=== PATIENT | female | born 1945 | race Caucasian/White ===

== ENCOUNTER → 2018-12-06 09:51 | Outpatient (CLI) | payer OTHER, SELFPAY ==
--- NOTE | 2018-12-06 | DI.MG.S_ITS ---
BILATERAL DIGITAL SCREENING MAMMOGRAM 3D/2D WITH CAD WITH AUGMENTATION: 12/06/2018 CLINICAL: Routine screening. Comparison is made to exams dated: 11/13/2015 mammogram - [facility], 11/13/2013 mammogram, and 11/13/2011 mammogram - [facility]. The tissue of both breasts is heterogeneously dense. This may lower the sensitivity of mammography. Current study was also evaluated with a Computer Aided Detection (CAD) system. Bilateral breast implants are stable. No significant masses, calcifications, or other findings are seen in either breast. There has been no significant interval change. IMPRESSION: NEGATIVE There is no mammographic evidence of malignancy. A 1 year screening mammogram is recommended. This exam was interpreted at Station ID: [id number]. NOTE: For mammograms, a report in lay terms will be sent to the patient. Approximately 15% of breast malignancies will not be visualized mammographically. In the management of a palpable breast mass, a negative mammogram must not discourage biopsy of a clinically suspicious lesion. Electronically Signed By: Ryan quiroz/bita:12/06/2018 17:02:59 letter sent: Normal Exam ACR BI-RADS Category 1: Negative [id number]
== END ==
PROVIDERS: PCP Family Medicine; Visit Provider Family Medicine
DX: Z12.31 Encounter for screening mammogram for malignant neoplasm of breast (principal)
CPT/HCPCS: 77063; 77067

== ENCOUNTER → 2019-03-03 10:14 | Outpatient (CLI) | payer OTHER, SELFPAY | PROVIDERS: PCP Family Medicine; Visit Provider Family Medicine | DX: M85.852 Other specified disorders of bone density and structure, left thigh (principal); Z78.0 Asymptomatic menopausal state; Z82.62 Family history of osteoporosis; E07.9 Disorder of thyroid, unspecified | CPT/HCPCS: 77080 ==

== ENCOUNTER → 2019-12-13 14:06 | Outpatient (CLI) | payer OTHER, SELFPAY ==
--- NOTE | 2019-12-13 14:10 | DI.RAD.S_ITS ---
PROCEDURE: XR CHEST 2V INDICATIONS: intermittent hemoptysis, none right now TECHNIQUE: 2 views of the chest were acquired. COMPARISON: None. FINDINGS: Surgical changes and devices: Bilateral breast prostheses Lungs and pleura: Lungs are clear. No pleural effusions or pneumothorax. Mediastinum: Mediastinal contours are normal. Heart size is normal. Bones and chest wall: No suspicious bony abnormalities. Soft tissues appear unremarkable. IMPRESSION: No acute disease Dictated by: Chaitanya Aviles M.D. on 12/13/2019 at 16:27 Approved by: Chaitanya Aviles M.D. on 12/13/2019 at 16:28
== END ==
PROVIDERS: PCP Nurse Practitioner Family; Referring Provider Nurse Practitioner Family; Visit Provider Nurse Practitioner Family
DX: R04.2 Hemoptysis (principal)
CPT/HCPCS: 71046

== ENCOUNTER → 2019-12-14 09:08 | Outpatient (CLI) | payer OTHER, SELFPAY ==
[2019-12-14 09:53] LABS: Appearance Urine UA CLEAR; Bilirubin Urine UA NEGATIVE (NEGATIVE); Color Urine UA YELLOW; Glucose Urine UA NEGATIVE (Negative); Ketones Urine UA NEGATIVE (NEGATIVE); Leukocyte Esterase Urine UA NEGATIVE (NEGATIVE); Nitrite Urine UA NEGATIVE (Negative); Occult Blood Urine UA TRACE-INTACT (Negative); Protein Urine UA NEGATIVE (Negative); Specific Gravity Urine UA 1.015 (1.000-1.035); Urobilinogen Urine UA 0.2 E.U./dL (0.2)
[2019-12-14 10:06] LABS: Bacteria Urine Occasional (0-1); Culture Indicated Urine Cult Not Indicated; RBC Urine 0-1/HPF (0-5/HPF); WBC Urine 0-1/HPF (0-5/HPF); pH Urine UA 6.5 (4.5-8.0)
[2019-12-14 10:09] LABS: Add Manual Diff / Slide Review NO; Basophils Absolute Auto 0 /uL (0-100); Basophils Percent Auto 0.5 % (0-2); Eosinophils Absolute Auto 100 /uL (0-450); Eosinophils Percent Auto 2.9 % (2-4); Hematocrit 36.1 % (36-46); Hemoglobin 12.2 g/dL (12.0-16.0); Lymphocytes Absolute Auto 900 /uL (1100-4500); Lymphocytes Percent Auto 18.7 % (25-40); Mean Corpuscular HGB Conc 33.8 % (30-36); Mean Corpuscular Volume 91.6 fL (80-100); Monocytes Absolute Auto 500 /uL (0-900); Monocytes Percent Auto 10.1 % (3-14); Neutrophils Absolute Auto 3400 /uL (1500-7000); Neutrophils Percent Auto 67.8 % (50-75); Platelet Count 224 X10^3/uL (150-400); Red Blood Cell Count 3.94 X10^6/uL (4.0-5.2); Red Cell Distribution Width 13.2 % (11.6-14.8)
[2019-12-14 10:17] LABS: Prothrombin Time 11.2 SECONDS (10.1-12.7)
[2019-12-14 10:20] LABS: PTT Partial Thromboplastin Tim 32 SECONDS (26.4-36.2)
[2019-12-14 10:35] LABS: Alanine Aminotransferase 22 IU/L (<35); Albumin 4.5 g/dL (3.5-5.0); Albumin Globulin Ratio 1.5 (1.0-2.8); Alkaline Phosphatase 53 U/L (38-126); Aspartate Aminotransferase 31 IU/L (14-36); BUN Creatinine Ratio 23.7 (6-22); Bilirubin Total 0.5 mg/dL (0.2-1.3); Blood Urea Nitrogen 18 mg/dL (7-17); Calcium 9.7 mg/dL (8.4-10.2); Carbon Dioxide 31 mmol/L (22-32); Chloride 97 mmol/L (98-107); Cholesterol 151 mg/dL (140-199); Estimated Glomerular Filt Rate > 60.0 mL/min (>60); Globulin 3.1 g/dL (1.7-4.1); Glucose 121 mg/dL (80-110); HDL Cholesterol 65 mg/dL (40-60); HEMOLYSIS < 15 (0-50); LDL Cholesterol Calculated 76 mg/dL (<100); Potassium 4.5 mmol/L (3.4-5.1); Sodium 134 mmol/L (137-145); Total Protein 7.6 g/dL (6.3-8.2); Triglycerides 50 mg/dL (35-150)
[2019-12-14 10:51] LABS: Creatinine Urine Random 81.2 mg/dL
[2019-12-14 10:56] LABS: Microalbumi Creatinin Ratio Ur 8.6 ug/mg CR (<30); Microalbumin Urine Random 0.7 mg/dL (0-1.6)
[2019-12-14 11:05] LABS: Thyroid Stimulating Hormone 3.29 uIU/mL (0.47-4.68)
[2019-12-16 13:30] LABS: QuantiFERON Mitogen Value 8.41 IU/mL (.); QuantiFERON Nil Value 0.19 IU/mL (.); QuantiFERON TB Gold Plus Negative (Negative); QuantiFERON TB1 Ag Value 0.18 IU/mL (.); QuantiFERON TB2 Ag Value 0.14 IU/mL (.)
== END ==
PROVIDERS: PCP Nurse Practitioner Family; Referring Provider Nurse Practitioner Family; Visit Provider Nurse Practitioner Family
DX: Z13.6 Encounter for screening for cardiovascular disorders (principal); R04.2 Hemoptysis; I10 Essential (primary) hypertension
CPT/HCPCS: 36415; 80053; 80061; 81001; 82043; 82570; 84443; 85025; 85610; 85730; 86480

== ENCOUNTER → 2020-03-01 13:37 | Outpatient (CLI) | payer OTHER, SELFPAY ==
--- NOTE | 2020-03-01 | DI.MG.S_ITS ---
BILATERAL DIGITAL SCREENING MAMMOGRAM 3D/2D WITH CAD WITH AUGMENTATION: 03/01/2020 CLINICAL: Routine screening. Comparison is made to exam dated: 12/06/2018 [facility]. The tissue of both breasts is heterogeneously dense. This may lower the sensitivity of mammography. Current study was also evaluated with a Computer Aided Detection (CAD) system. Bilateral prepectoral silicone implants are stable and have irregular rehman. There is a possible oval equal density asymmetry in the right breast middle depth inferior region seen on the mediolateral oblique view only. No other significant masses, calcifications, or other findings are seen in either breast. IMPRESSION: INCOMPLETE: NEEDS ADDITIONAL IMAGING EVALUATION The possible asymmetry in the right breast is indeterminate. Additional views with possible ultrasound are recommended. This exam was interpreted at Station ID: [id number]. NOTE: For mammograms, a report in lay terms will be sent to the patient. Approximately 15% of breast malignancies will not be visualized mammographically. In the management of a palpable breast mass, a negative mammogram must not discourage biopsy of a clinically suspicious lesion. Electronically Signed By: Kaiser Masterson M.D. [facility]/:03/01/2020 14:33:57 letter sent: Additional Imaging Needed ACR BI-RADS Category 0: Incomplete 3340F
== END ==
PROVIDERS: PCP Nurse Practitioner Family; Referring Provider Nurse Practitioner Family; Visit Provider Nurse Practitioner Family
DX: Z12.31 Encounter for screening mammogram for malignant neoplasm of breast (principal)
CPT/HCPCS: 77063; 77067

== ENCOUNTER → 2020-03-25 13:06 | Outpatient (CLI) | payer OTHER, SELFPAY ==
--- NOTE | 2020-03-25 | DI.MG.S_ITS ---
UNILATERAL RIGHT DIGITAL DIAGNOSTIC MAMMOGRAM 3D/2D WITH ADDITIONAL VIEWS: 03/25/2020 CLINICAL: Additional evaluation requested from prior study. Comparison is made to exams dated: 03/01/2020 mammogram, 12/06/2018 mammogram - [facility], and 11/13/2015 mammogram - [facility]. The tissue of right breast is heterogeneously dense. This may lower the sensitivity of mammography. Right prepectoral silicone implant is stable and has an irregular wall. There is an oval equal density asymmetry in the right breast middle depth inferior region seen on the mediolateral oblique view and lateral medial views just anterior to the implant. No other significant masses or calcifications are seen in the breast. IMPRESSION: INCOMPLETE: NEEDS ADDITIONAL IMAGING EVALUATION Asymmetry in the right breast is indeterminate. A targeted ultrasound is recommended and will immediately follow. This exam was interpreted at Station ID: [id number]. NOTE: For mammograms, a report in lay terms will be sent to the patient. Approximately 15% of breast malignancies will not be visualized mammographically. In the management of a palpable breast mass, a negative mammogram must not discourage biopsy of a clinically suspicious lesion. Electronically Signed By: Kaiser Mastesron M.D. slc/:03/25/2020 14:05:45 ACR BI-RADS Category 0: Incomplete 3340F
--- NOTE | 2020-03-25 13:08 | DI.US.S_ITS ---
LIMITED ULTRASOUND OF RIGHT BREAST: 03/25/2020 CLINICAL: Abn Mammo 600 Rt Breast. Comparison is made to exams dated: 03/25/2020 mammogram, 03/01/2020 mammogram, 12/06/2018 mammogram - [facility], and 11/13/2015 mammogram - [facility]. Color flow and real-time ultrasound of the right breast 5-7 o'clock region were performed. Felder scale images of the real-time examination were reviewed. There is a 1.6 cm x 1 cm x 0.3 cm oval cyst in the right breast at 6 o'clock middle depth 3 cm from the nipple. This oval cyst is hypoechoic with a well-defined boundary and internal echoes. This correlates with mammography findings. Color flow imaging demonstrates that there is no vascularity present. IMPRESSION: PROBABLY BENIGN The 1.6 cm oval cyst in the right breast is consistent with a complicated cyst and is probably benign. A follow-up mammogram and an ultrasound in 6 months is recommended to demonstrate stability. Exam findings conveyed to the patient by the Mixer Operator. This exam was interpreted at Station ID: [id number]. Electronically Signed By: Kaiser Masterson M.D. slc/:03/25/2020 14:20:17 letter sent: Followup Recommended Ultrasound BI-RADS: 3 Probably benign
== END ==
PROVIDERS: PCP Nurse Practitioner Family; Referring Provider Nurse Practitioner Family; Visit Provider Nurse Practitioner Family
DX: R92.8 Other abnormal and inconclusive findings on diagnostic imaging of breast (principal); N60.01 Solitary cyst of right breast; Z98.82 Breast implant status
CPT/HCPCS: 76642; 77065; G0279

== ENCOUNTER → 2020-04-20 13:01 | Outpatient (CLI) | payer OTHER, SELFPAY ==
--- NOTE | 2020-04-20 13:03 | DI.RAD.S_ITS ---
PROCEDURE: XR ANKLE RT MIN 3V INDICATIONS: medial right ankle pain TECHNIQUE: 3 views of the ankle were acquired. COMPARISON: None. FINDINGS: Bones: No fractures or dislocations. Ankle mortise is normally aligned. No suspicious bony lesions. The talar dome demonstrates no dulce maria abnormality. Age-appropriate bony degenerative changes are seen. Soft tissues: No tibiotalar joint effusion. Achilles tendon appears normal. IMPRESSION: No acute plain film abnormality is seen to explain the patient's presenting history. If it would be helpful for clinical management decision making, please consider a dedicated ankle MRI for further evaluation echo contraindication Dictated by: Samson Mcgee M.D. on 04/20/2020 at 12:30 Approved by: Samosn Mcgee M.D. on 04/20/2020 at 12:31
== END ==
PROVIDERS: PCP Nurse Practitioner Family; Referring Provider Physician Assistant; Visit Provider Physician Assistant
DX: M25.571 Pain in right ankle and joints of right foot (principal)
CPT/HCPCS: 73610

== ENCOUNTER → 2020-08-19 11:13 | Outpatient (CLI) | payer OTHER, SELFPAY | PROVIDERS: PCP Nurse Practitioner Family; Referring Provider Nurse Practitioner Family; Visit Provider Nurse Practitioner Family | DX: E03.9 Hypothyroidism, unspecified (principal) | CPT/HCPCS: 36415; 84443 ==

== ENCOUNTER → 2020-09-07 15:05 | Outpatient (CLI) | payer OTHER, SELFPAY ==
[2020-09-07 16:29] LABS: COVID19 -Nasal RAPID Negative (Negative)
== END ==
PROVIDERS: PCP Nurse Practitioner Family; Visit Provider Physician Assistant
DX: Z11.59 Encounter for screening for other viral diseases (principal)
CPT/HCPCS: 87635

== ENCOUNTER → 2020-09-18 14:08 | Outpatient (CLI) | payer OTHER, SELFPAY ==
--- NOTE | 2020-09-18 | DI.US.S_ITS ---
LIMITED ULTRASOUND OF RIGHT BREAST AND AXILLA: 09/18/2020 CLINICAL: Patient returns for a 6 month follow up of the right breast. Comparison is made to exams dated: 09/18/2020 mammogram, 03/25/2020 ultrasound, 03/25/2020 mammogram, and 03/01/2020 mammogram - [facility]. Color flow and real-time ultrasound of the right breast 6 o'clock, and axilla regions were performed on the areas of interest. There is a stable benign 1.5 cm x 0.4 cm x 0.8 cm oval cyst in the right breast at 6 o'clock middle depth. This oval cyst is anechoic with a well-defined boundary and posterior acoustic enhancement. This correlates with mammography findings. Color flow imaging demonstrates that there is no vascularity present. IMPRESSION: BENIGN There is no sonographic evidence of malignancy. The stable 1.5 cm x 0.4 cm x 0.8 cm oval cyst in the right breast is consistent with a simple cyst and is benign. A 1 year screening mammogram is recommended. Future imaging is recommended as follows: 09/24/2020 right mammogram and an ultrasound. This exam was interpreted at Station ID: [id number]. Electronically Signed By: Juan Luis brody/bita:09/18/2020 16:25:09 letter sent: Normal Exam Ultrasound BI-RADS: 2 Benign
--- NOTE | 2020-09-18 | DI.MG.S_ITS ---
UNILATERAL RIGHT DIGITAL DIAGNOSTIC MAMMOGRAM 3D/2D SHORT-TERM FOLLOW-UP WITH AUGMENTATION: 09/18/2020 CLINICAL: Patient returns for a 6 month follow up of the right breast. Comparison is made to exams dated: 03/25/2020 mammogram, 03/01/2020 mammogram, and 12/06/2018 mammogram - [facility]. The tissue of right breast is heterogeneously dense. This may lower the sensitivity of mammography. There is an oval equal density asymmetry with an obscured and circumscribed margin in the right breast middle depth inferior region seen on the mediolateral oblique view only. This is not significantly changed. No other significant masses or calcifications are seen in the breast. IMPRESSION: INCOMPLETE: NEEDS ADDITIONAL IMAGING EVALUATION The oval equal density asymmetry in the right breast is indeterminate. An ultrasound is recommended. Future imaging is recommended as follows: 09/24/2020 right mammogram and an ultrasound. This exam was interpreted at Station ID: [id number]. NOTE: For mammograms, a report in lay terms will be sent to the patient. Approximately 15% of breast malignancies will not be visualized mammographically. In the management of a palpable breast mass, a negative mammogram must not discourage biopsy of a clinically suspicious lesion. Electronically Signed By: Juan Luis brody/bita:09/18/2020 14:47:13 ACR BI-RADS Category 0: Incomplete 3340F
== END ==
PROVIDERS: PCP Nurse Practitioner Family; Referring Provider Nurse Practitioner Family; Visit Provider Nurse Practitioner Family
DX: R92.8 Other abnormal and inconclusive findings on diagnostic imaging of breast (principal); N60.01 Solitary cyst of right breast
CPT/HCPCS: 76642; 77065; G0279

== ENCOUNTER → 2020-12-03 16:49 | Outpatient (CLI) | payer OTHER, SELFPAY ==
[2020-12-03 17:50] LABS: Bacteria Urine None Seen; RBC Urine None Seen (0-5/HPF); WBC Urine None Seen (0-5/HPF)
[2020-12-03 18:10] LABS: Appearance Urine UA CLEAR; Bilirubin Urine UA NEGATIVE (NEGATIVE); Color Urine UA YELLOW; Glucose Urine UA NEGATIVE (Negative); Ketones Urine UA NEGATIVE (NEGATIVE); Leukocyte Esterase Urine UA NEGATIVE (NEGATIVE); Nitrite Urine UA NEGATIVE (Negative); Occult Blood Urine UA TRACE-INTACT (Negative); Protein Urine UA NEGATIVE (Negative); Urobilinogen Urine UA 0.2 E.U./dL (0.2); pH Urine UA 6.5 (4.5-8.0)
[2020-12-03 18:17] LABS: Culture Indicated Urine Cult Not Indicated; Urine Comments Microscopic Normal
[2020-12-03 18:39] LABS: Hematocrit 36.9 % (36-46); Hemoglobin 12.3 g/dL (12.0-16.0); Mean Corpuscular HGB Conc 33.4 % (30-36); Mean Corpuscular Hemoglobin 30.2 PG (26-34); Mean Corpuscular Volume 90.2 fL (80-100); Platelet Count 226 X10^3/uL (150-400); Red Blood Cell Count 4.09 X10^6/uL (4.0-5.2); Red Cell Distribution Width 13.3 % (11.6-14.8); White Blood Cell Count 5.3 X10^3/uL (4.5-11.0)
[2020-12-03 19:03] LABS: Alanine Aminotransferase 27 IU/L (<35); Albumin 4.8 g/dL (3.5-5.0); Albumin Globulin Ratio 1.6 (1.0-2.8); Alkaline Phosphatase 56 U/L (38-126); Aspartate Aminotransferase 35 IU/L (14-36); BUN Creatinine Ratio 27.8 (6-22); Bilirubin Total 0.2 mg/dL (0.2-1.3); Blood Urea Nitrogen 20 mg/dL (7-17); Calcium 9.7 mg/dL (8.4-10.2); Carbon Dioxide 31 mmol/L (22-32); Chloride 98 mmol/L (98-107); Estimated Glomerular Filt Rate > 60.0 mL/min (>60); Glucose 99 mg/dL (80-110); HEMOLYSIS < 15 (0-50); Potassium 4.3 mmol/L (3.4-5.1); Sodium 134 mmol/L (137-145); Total Protein 7.8 g/dL (6.3-8.2)
[2020-12-03 19:17] LABS: Free T4, Direct Thyroxine 1.48 ng/dL (0.78-2.19)
[2020-12-03 19:31] LABS: Thyroid Stimulating Hormone 0.769 uIU/mL (0.47-4.68)
== END ==
PROVIDERS: PCP Nurse Practitioner Family; Referring Provider Nurse Practitioner Family; Visit Provider Nurse Practitioner Family
DX: Z00.00 Encounter for general adult medical examination without abnormal findings (principal); E03.9 Hypothyroidism, unspecified; I10 Essential (primary) hypertension; R31.29 Other microscopic hematuria
CPT/HCPCS: 36415; 80053; 81001; 84439; 84443; 85027

== ENCOUNTER → 2020-12-06 10:14 | Outpatient (CLI) | payer OTHER, SELFPAY ==
[2020-12-06 11:23] LABS: Appearance Urine UA CLEAR; Bilirubin Urine UA NEGATIVE (NEGATIVE); Color Urine UA YELLOW; Glucose Urine UA NEGATIVE (Negative); Ketones Urine UA NEGATIVE (NEGATIVE); Leukocyte Esterase Urine UA NEGATIVE (NEGATIVE); Nitrite Urine UA NEGATIVE (Negative); Occult Blood Urine UA TRACE-LYSED (Negative); Protein Urine UA NEGATIVE (Negative); Specific Gravity Urine UA 1.015 (1.000-1.035); Urobilinogen Urine UA 0.2 E.U./dL (0.2)
[2020-12-06 12:01] LABS: Bacteria Urine Few (2-10); Culture Indicated Urine Cult Not Indicated; RBC Urine 0-1/HPF (0-5/HPF); Squamous Epithelial Cell Urine 0-1 /HPF (0-5/HPF); WBC Urine 0-1/HPF (0-5/HPF)
== END ==
PROVIDERS: PCP Nurse Practitioner Family; Referring Provider Nurse Practitioner Family; Visit Provider Nurse Practitioner Family
DX: R31.29 Other microscopic hematuria (principal)
CPT/HCPCS: 81001

== ENCOUNTER → 2020-12-10 11:01 | Outpatient (CLI) | payer OTHER, SELFPAY ==
--- NOTE | 2020-12-10 11:03 | DI.US.S_ITS ---
PROCEDURE: US THYROID INDICATIONS: THROAT DISCOMFORT TECHNIQUE: Real-time scanning was performed of the thyroid gland, with image documentation. COMPARISON: None. FINDINGS: Right: Thyroid lobe measures 3.9 x 1.0 x 0.7 cm, and is homogeneous in echotexture. Left: Thyroid lobe measures 3.2 x 0.8 x 0.6 cm, and is homogenous in echotexture. Isthmus: 2.4 mm thick. Nodule number: 1 Location: Left inferior Size: 6 mm Composition: Solid Echogenicity: Isoechoic Shape: wider than tall. Margins: Smooth Echogenic foci: None Total points: 3 ACR TI-RADS category: Mildly suspicious IMPRESSION: Mildly suspicious sub cm left thyroid nodule. Given the small size, no follow-up is warranted. ACR TI-RADS definitions and recommendations: TI-RADS 1 (benign): 0 points. FNA not needed. TI-RADS 2 (not suspicious): 2 points. FNA not needed. TI-RADS 3 (mildly suspicious): 3 points. * FNA if 2.5 cm or larger, follow up if 1.5 cm or larger (at 1, 3, and 5 years). TI-RADS 4 (moderately suspicious): 4-6 points. * FNA if 1.5 cm or larger, follow up if 1 cm or larger (at 1, 2, 3, and 5 years). TI-RADS 5 (highly suspicious): 7 points or more. * FNA if 1 cm or larger, follow up if 0.5 cm or larger (every year for 5 years). Dictated by: Paul Rosado [facility] Interpreted: Gabby Skinner MD on 12/10/2020 at 12:54 Approved by: Gabby Skinner M.D. on 12/10/2020 at 17:01
== END ==
PROVIDERS: PCP Nurse Practitioner Family; Referring Provider Nurse Practitioner Family; Visit Provider Nurse Practitioner Family
DX: R07.0 Pain in throat (principal); E04.1 Nontoxic single thyroid nodule
CPT/HCPCS: 76536

== ENCOUNTER → 2021-04-23 16:30 | Outpatient (CLI) | payer OTHER, SELFPAY ==
[2021-04-23 16:44] LABS: Bacteria Urine None Seen
[2021-04-23 18:33] LABS: Culture Indicated Urine Cult Not Indicated; RBC Urine 5-10/HPF (0-5/HPF); WBC Urine 0-1/HPF (0-5/HPF)
== END ==
PROVIDERS: PCP Nurse Practitioner Family; Referring Provider Urology; Visit Provider Urology
DX: R31.21 Asymptomatic microscopic hematuria (principal)
CPT/HCPCS: 81015

== ENCOUNTER → 2021-04-29 14:17 | Outpatient (CLI) | payer OTHER, SELFPAY ==
[2021-04-29 14:27] LABS: Bacteria Urine None Seen; RBC Urine None Seen (0-5/HPF); WBC Urine None Seen (0-5/HPF)
[2021-04-29 16:15] LABS: Culture Indicated Urine Cult Not Indicated; Squamous Epithelial Cell Urine 0-1 /HPF (0-5/HPF)
== END ==
PROVIDERS: PCP Nurse Practitioner Family; Referring Provider Urology; Visit Provider Urology
DX: R31.21 Asymptomatic microscopic hematuria (principal)
CPT/HCPCS: 81015

== ENCOUNTER → 2021-05-07 11:41 | Outpatient (CLI) | payer OTHER, SELFPAY ==
[2021-05-07 12:29] LABS: Bacteria Urine None Seen; WBC Urine None Seen (0-5/HPF)
[2021-05-07 13:33] LABS: Amorphous Sediment Urine 1+; RBC Urine 1-5/HPF (0-5/HPF)
[2021-05-07 20:34] LABS: Culture Indicated Urine Cult Not Indicated
== END ==
PROVIDERS: PCP Nurse Practitioner Family; Referring Provider Urology; Visit Provider Urology
DX: R31.21 Asymptomatic microscopic hematuria (principal)
CPT/HCPCS: 81015

== ENCOUNTER 2021-05-19 15:14 | Emergency (ER) | payer OTHER, SELFPAY ==
[2021-05-19 15:54] VITALS: BP 214/91; PULSE 67; RESP 18; TEMP 36.6; O2SAT 98; BMI 24.2
--- NOTE | 2021-05-19 15:59 | DI.RAD.S_ITS ---
PROCEDURE: XR FOOT RT MIN 3V INDICATIONS: foot injury TECHNIQUE: 3 views of the foot were acquired. COMPARISON: None. FINDINGS: Bones: Acute slightly comminuted fracture involving 5th metatarsal base is seen extending to 5th TMT joint. No suspicious bony lesions. Soft tissues: No tibiotalar joint effusion. Achilles tendon appears normal. IMPRESSION: Acute slightly comminuted 5th metatarsal base fracture as above. Dictated by: Pablo Dominguez M.D. on 05/19/2021 at 16:16 Approved by: Pablo Dominguez M.D. on 05/19/2021 at 16:16
--- NOTE | 2021-05-19 17:40 | ED_ITS ---
HPI - Extremity Injury (Lower) General Chief Complaint: Extremity Injury, Lower Stated Complaint: Fall, Rt Foot Injury Time Seen by Provider: 05/19/21 17:31 Source: patient Mode of arrival: Ambulatory History of Present Illness HPI Narrative: Patient is a 75-year-old female here for evaluation of a right foot injury. States that approximately 12 days ago she tripped over her cat at home and fell and since that time has had discomfort with walking on her right foot and also bruising around her toes. She does have a cane that she has been using. Does feel somewhat better when she walks with a flatfoot. No prior injuries. Did not hit her head. Related Data Home Medications Medication Instructions Recorded Confirmed flaxseed oil 1,400 mg PO DAILY 12/13/19 04/18/21 multivitamin 1 tab PO DAILY 12/13/19 04/18/21 cholecalciferol (vitamin D3) 50 50 mcg PO DAILY 04/18/21 04/18/21 mcg (2,000 unit) tablet fexofenadine 180 mg tablet 180 mg PO DAILY 04/18/21 04/18/21 (Allergy Relief (fexofenadine)) magnesium PO 04/18/21 multivitamin with minerals 1 tab PO DAILY 04/18/21 04/18/21 (Hair,Skin and Nails) triamcinolone acetonide 55 mcg 1 spray INTRANASAL DAILY 04/18/21 04/18/21 nasal spray aerosol (Nasacort) turmeric 400 mg capsule mg PO 04/18/21 04/18/21 Previous Rx's Medication Instructions Recorded levothyroxine 88 mcg tablet 88 mcg PO DAILY #90 tab 08/20/20 losartan 50 mg tablet 50 mg PO DAILY #90 tab 03/12/21 Allergies Allergy/AdvReac Type Severity Reaction Status Date / Time Latex, Natural Rubber Allergy Intermediate swelling, Verified 05/19/21 15:59 itching, rash Review of Systems Musculoskeletal Musculoskeletal: Reports as per HPI Integumentary/Breasts Skin/Breast: Reports as per HPI Neurologic Neurologic: Reports system reviewed and no additional complaints, except as documented Hematologic/Lymphatic On Anticoagulants: No Patient History Medical History Abnormal mammogram of right breast Acquired hypothyroidism Allergies Ankle pain Asymptomatic microscopic hematuria Chicken pox Essential hypertension (2014) Fractures (~2013) Hemoptysis Hepatitis C (~2015) Herpes Infertility Measles Mumps KALIN (obstructive sleep apnea) Osteopenia (11/2014) Right ankle pain Skin rash (~2011) Throat discomfort Wears glasses Surgical History Anesthesia Breast cyst History of appendectomy History of breast implant History of knee surgery (~2013) History of surgery History of tonsillectomy Family History Father Cancer History of heart disease Gout Mother Hypertension Brother Prostate cancer Grandfather Cancer Grandmother No problems noted. Social History Smoking Status: Never smoker second hand exposure: No alcohol intake: current (1-2 drinks/day) substance use type: marijuana (edibles, couplex/month) Smoking Status: Never smoker alcohol intake frequency: a few times a week Substance Use Type: marijuana Exam Initial Vital Signs Initial Vital Signs: Vital Signs Temperature 97.8 F 05/19/21 15:54 Pulse Rate 67 05/19/21 15:54 Respiratory Rate 18 05/19/21 15:54 Blood Pressure 214/91 H 05/19/21 15:54 Pulse Oximetry 98 05/19/21 15:54 Const General: cooperative and healthy appearing HENMT Head: normal to inspection and normocephalic Cardio Pulses: dorsalis pedis present on the right Skin Other: Patient with bruising located around the toes and on the dorsum of the foot. Neuro Sensory Exam: no sensory deficits noted Extrem Other: No proximal fibula tenderness. Right ankle is unremarkable. Does have tenderness along the lateral aspect of the right foot and on the dorsum of the foot. Course Orders Ordered: ED Orders 05/19/21 15:59 XR foot RT min 3V Stat Vital Signs Vital signs: Vital Signs - 8 hr 05/19/21 15:54 05/19/21 18:09 Temperature 97.8 F Pulse Rate 67 79 Respiratory Rate 18 17 Blood Pressure 214/91 H 166/79 H Pulse Oximetry 98 99 MDM - Extremity Injury (Lower) Imaging Data Extremity x-ray #1: Radiologist's Impression: [address] [id number] ReportSigned Patient: Ana Cristina Raines OMR#: [id number]: [id number]:[id number]/Sex: 75 / FDate of Service: 05/19/21Loc: EDAccession Number: [id number] Procedure: XR foot RT min 3V Ordering Provider: Endy Chilel D.O. PROCEDURE: XR FOOT RT MIN 3V INDICATIONS: foot injury TECHNIQUE: 3 views of the foot were acquired. COMPARISON: None. FINDINGS: Bones: Acute slightly comminuted fracture involving 5th metatarsal base is seen extending to 5th TMT joint. No suspicious bony lesions. Soft tissues: No tibiotalar joint effusion. Achilles tendon appears normal. IMPRESSION: Acute slightly comminuted 5th metatarsal base fracture as above. Dictated by: Pablo Dominguez M.D. on 05/19/2021 at 16:16 Approved by: Pablo Dominguez M.D. on 05/19/2021 at 16:16 MDM Narrative Medical decision making narrative: Patient is neurovascularly intact. X-ray does show a fracture of the base of the 5th metatarsal. Discussed the case with Dr. Keith on-call with orthopedics who recommended a hard sole shoe and weight- bearing as tolerated. Patient given return precautions and follow-up instructions. She expressed understanding and agreement. Discharge Plan Departure Patient Disposition: Home Clinical Impression: Metatarsal stress fracture of right foot Instructions: DI for Foot Fracture Activity Restrictions/Additional Instructions: The ortho she is for your comfort. You can walk 1 your right foot as tolerated. Contact your primary doctor for a follow-up. Return to the emergency department for any new or worsening symptoms Prescriptions: No Action levothyroxine 88 mcg tablet 88 mcg PO DAILY Qty: 90 RF: 2 losartan 50 mg tablet 50 mg PO DAILY Qty: 90 RF: 3 flaxseed oil 1,400 mg PO DAILY RF: 0 multivitamin Tablet 1 tab PO DAILY RF: 0 cholecalciferol (vitamin D3) 50 mcg (2,000 unit) tablet 50 mcg PO DAILY RF: 0 triamcinolone acetonide [Nasacort] 55 mcg aerosol,spray 1 spray intranasal DAILY RF: 0 fexofenadine [Allergy Relief (fexofenadine)] 180 mg tablet 180 mg PO DAILY RF: 0 turmeric 400 mg capsule PO RF: 0 multivitamin with minerals [Hair,Skin and Nails] Tablet 1 tab PO DAILY RF: 0 magnesium PO RF: 0 Referrals: Marvel Martinez ARNP [Primary Care Provider] -
[2021-05-19 18:09] VITALS: BP 166/79; PULSE 79; RESP 17; O2SAT 99
== END 2021-05-19 18:08 | disposition home or self-care (01) ==
PROVIDERS: Emergency Provider Emergency Medicine; PCP Nurse Practitioner Family
DX: S92.351A Displaced fracture of fifth metatarsal bone, right foot, initial encounter for closed fracture (principal); W19.XXXA Unspecified fall, initial encounter
CPT/HCPCS: 73630; 99283

== ENCOUNTER → 2021-06-02 10:44 | Outpatient (CLI) | payer OTHER, SELFPAY ==
[2021-06-02 11:49] LABS: BUN Creatinine Ratio 32.4 (6-22); Blood Urea Nitrogen 24 mg/dL (7-17); Calcium 9.5 mg/dL (8.4-10.2); Carbon Dioxide 29 mmol/L (22-32); Chloride 102 mmol/L (98-107); Estimated Glomerular Filt Rate > 60.0 mL/min (>60); Glucose 90 mg/dL (80-110); HEMOLYSIS < 15 (0-50); Potassium 4.2 mmol/L (3.4-5.1); Sodium 137 mmol/L (137-145)
== END ==
PROVIDERS: PCP Nurse Practitioner Family; Referring Provider Urology; Visit Provider Urology
DX: R31.21 Asymptomatic microscopic hematuria (principal)
CPT/HCPCS: 36415; 80048

== ENCOUNTER → 2021-06-04 09:49 | Outpatient (CLI) | payer OTHER, SELFPAY ==
--- NOTE | 2021-06-04 10:19 | DI.CT.S_ITS ---
PROCEDURE: CT ABDOMEN PELVIS WO/W CON INDICATIONS: Persistent painless microscopic hematuria TECHNIQUE: Optional 5 mm thick noncontrast images acquired from the diaphragm to the symphysis pubis. After the administration of intravenous contrast, 5 mm thick images acquired from the diaphragm to the symphysis pubis after a 10-minute delay. 2 mm thick coronal and sagittal reformats were then performed of the kidneys and ureters. For radiation dose reduction, the following was used: automated exposure control, adjustment of mA and/or kV according to patient size. COMPARISON: None. FINDINGS: Image quality: Excellent. Lung bases: Lung bases are clear. Heart size is normal. Urinary system: Both kidneys are normal in size, without hydronephrosis or nephrolithiasis on pre-contrast images. No perinephric fat stranding. There is normal bilateral renal enhancement. Renal calyces appear normal in morphology when filled with contrast. Opacified portions of both ureters demonstrate normal caliber. Bladder wall thickness is normal. No calcified bladder stones. Other solid organs: Liver is normal in size and enhancement. Gallbladder is partially contracted . Biliary system is non dilated. Pancreas enhances normally. Spleen is normal in size and enhancement. No adrenal nodules. Peritoneum and bowel: Bowel loops demonstrate normal wall thickness and caliber. No free fluid or air. Nodes and vessels: No retroperitoneal or mesenteric adenopathy by size criteria. Aorta and inferior vena cava are normal in size. Abdominal wall: No ventral hernias. Pelvis: No pathologic free pelvic fluid. No inguinal hernias or adenopathy. Bones: No suspicious bony lesions. Mild chronic L4 compression fracture. No acute vertebral body compression fractures. IMPRESSION: 1. No evidence of urinary tract calcification, nor obstruction. 2. No evidence of renal neoplasm. Dictated by: Orlando Schmidt M.D. on 06/04/2021 at 12:06 Approved by: Orlando Schmidt M.D. on 06/04/2021 at 12:08
== END ==
PROVIDERS: PCP Nurse Practitioner Family; Referring Provider Nurse Practitioner Family; Visit Provider Nurse Practitioner Family
DX: R31.21 Asymptomatic microscopic hematuria (principal); M85.851 Other specified disorders of bone density and structure, right thigh; Z78.0 Asymptomatic menopausal state; E07.9 Disorder of thyroid, unspecified; Z82.62 Family history of osteoporosis
CPT/HCPCS: 51798; 52000; 74178; 77080; 81002

== ENCOUNTER → 2021-07-16 12:17 | Outpatient (CLI) | payer OTHER, SELFPAY ==
--- NOTE | 2021-07-16 12:18 | DI.RAD.S_ITS ---
PROCEDURE: XR CHEST 2V INDICATIONS: intermittent chest pain TECHNIQUE: 2 views of the chest were acquired. COMPARISON: [facility], , XR CHEST 2V, 12/13/2019, 14:06. FINDINGS: Surgical changes and devices: Bilateral breast implants are noted. Lungs and pleura: Lungs are clear. No pleural effusions or pneumothorax. Mediastinum: Mediastinal contours are normal. Heart size is normal. Bones and chest wall: No suspicious bony abnormalities. IMPRESSION: No acute cardiopulmonary abnormality. Dictated by: Michael Pineda M.D. on 07/16/2021 at 13:30 Approved by: Michael Pineda M.D. on 07/16/2021 at 13:32
== END ==
PROVIDERS: PCP Nurse Practitioner Family; Referring Provider Nurse Practitioner Family; Visit Provider Nurse Practitioner Family
DX: R07.9 Chest pain, unspecified (principal); E03.9 Hypothyroidism, unspecified; R06.02 Shortness of breath; R53.83 Other fatigue
CPT/HCPCS: 71046

== ENCOUNTER 2021-07-16 14:58 | Inpatient (IN) | payer OTHER, SELFPAY ==
[2021-07-16] VITALS (20 sets, daily range): BP systolic 130–226; BP diastolic 66–99; PULSE 57–79; RESP 13–35; TEMP 36.2–36.6; O2SAT 97–100; BMI 23.8
[2021-07-16 15:21] LABS: Add Manual Diff / Slide Review NO; Basophils Absolute Auto 100 /uL (0-100); Eosinophils Absolute Auto 200 /uL (0-450); Eosinophils Percent Auto 2.4 % (2-4); Hematocrit 38.6 % (36-46); Hemoglobin 12.7 g/dL (12.0-16.0); Lymphocytes Absolute Auto 1300 /uL (1100-4500); Lymphocytes Percent Auto 18.3 % (25-40); Mean Corpuscular HGB Conc 32.9 % (30-36); Mean Corpuscular Hemoglobin 29.7 PG (26-34); Mean Corpuscular Volume 90.5 fL (80-100); Monocytes Absolute Auto 500 /uL (0-900); Monocytes Percent Auto 6.6 % (3-14); Neutrophils Absolute Auto 4900 /uL (1500-7000); Neutrophils Percent Auto 71.7 % (50-75); Platelet Count 249 X10^3/uL (150-400); Red Blood Cell Count 4.27 X10^6/uL (4.0-5.2); Red Cell Distribution Width 13.3 % (11.6-14.8); White Blood Cell Count 6.9 X10^3/uL (4.5-11.0)
--- NOTE | 2021-07-16 15:35 | ED.CHESTPAIN ---
HPI - Chest Pain General Chief Complaint: Chest Pain Stated Complaint: chest pain, recent heart attack Time Seen by Provider: 07/16/21 15:12 Source: patient Mode of arrival: Ambulatory History of Present Illness HPI narrative: Patient is a 75-year-old female. History of high blood pressure. Came over from her primary doctor's office for evaluation of 2 months of shortness of breath and occasional chest discomfort. She states she an appointment her primary doctor today. Had a chest x-ray obtained. Stated that she had an EKG. She was told by her primary doctor that she has had a heart attack in the past. A consult was placed for her to see Cardiology. She was told that if she ever had any of ?those symptoms ?again she needed to come to the emergency department. Apparently on Wednesday of last week she had an episode when she was standing in the kitchen where she suddenly started to not feel very good. She had to sit down. Potentially was having some chest discomfort at the time. No fevers. Symptoms resolved on their own. Related Data Home Medications Medication Instructions Recorded Confirmed flaxseed oil 1,400 mg PO DAILY 12/13/19 07/16/21 multivitamin 1 tab PO DAILY 12/13/19 07/16/21 cholecalciferol (vitamin D3) 50 50 mcg PO DAILY 04/18/21 07/16/21 mcg (2,000 unit) tablet magnesium PO 04/18/21 07/16/21 multivitamin with minerals 1 tab PO DAILY 04/18/21 07/16/21 (Hair,Skin and Nails) turmeric 400 mg capsule mg PO 04/18/21 07/16/21 azelastine 137 mcg (0.1 %) nasal 1 spray INTRANASAL BID ml 06/04/21 07/16/21 spray aerosol calm with magnesium PO 07/16/21 Previous Rx's Medication Instructions Recorded losartan 50 mg tablet 50 mg PO DAILY #90 tab 03/12/21 levothyroxine 88 mcg tablet 88 mcg PO DAILY #90 tab 06/02/21 alendronate 35 mg tablet 35 mg PO QWEEK #14 tab 07/16/21 epinephrine 0.3 mg/0.3 mL 1 mg IM Q5-15M PRN #2 ea 07/16/21 injection, auto-injector (EpiPen 2-Slim) Allergies Allergy/AdvReac Type Severity Reaction Status Date / Time Latex, Natural Rubber Allergy Intermediate swelling, Verified 07/16/21 11:33 itching, rash wasp venom Allergy Intermediate swelling Uncoded 07/16/21 12:53 Review of Systems Constitutional Constitutional: Reports system reviewed and no additional complaints, except as documented Cardiovascular Cardiovascular: Reports as per HPI and Reports system reviewed and no additional complaints, except as documented Respiratory Respiratory: Reports as per HPI and Reports system reviewed and no additional complaints, except as documented Gastrointestinal Gastrointestinal: Reports as per HPI and Reports system reviewed and no additional complaints, except as documented Musculoskeletal Musculoskeletal: Reports system reviewed and no additional complaints, except as documented Integumentary/Breasts Skin/Breast: Reports system reviewed and no additional complaints, except as documented Neurologic Neurologic: Reports system reviewed and no additional complaints, except as documented Psychiatric Psychiatric: Reports anxiety Hematologic/Lymphatic On Anticoagulants: No Patient History Medical History Abnormal mammogram of right breast Acquired hypothyroidism Allergies Ankle pain Asymptomatic microscopic hematuria Chicken pox Essential hypertension (2014) Fatigue Fractures (~2013) Hemoptysis Hepatitis C (~2015) Herpes Infertility Intermittent chest pain Measles Mumps KALIN (obstructive sleep apnea) Osteopenia (11/2014) Right ankle pain Shortness of breath Skin rash (~2011) Throat discomfort Wears glasses Surgical History Anesthesia Breast cyst History of appendectomy History of breast implant History of knee surgery (~2013) History of surgery History of tonsillectomy Family History Father Cancer History of heart disease Gout Mother Hypertension Brother Prostate cancer Grandfather Cancer Grandmother No problems noted. Social History Smoking Status: Never smoker second hand exposure: No alcohol intake: current substance use type: marijuana Smoking Status: Never smoker alcohol intake frequency: a few times a week Substance Use Type: marijuana Exam Initial Vital Signs Initial Vital Signs: Vital Signs Temperature 97.5 F L 07/16/21 15:13 Pulse Rate 79 07/16/21 15:13 Respiratory Rate 22 07/16/21 15:13 Blood Pressure 226/99 H 07/16/21 15:13 Pulse Oximetry 100 07/16/21 15:13 HENMT Head: normal to inspection and normocephalic Resp Effort & Inspection: normal respiratory effort Auscultation: clear to auscultation bilaterally Cardio Rate: regular rate Rhythm: regular rhythm GI Inspection: normal to inspection Skin General: no rashes or lesions noted Extrem General: normal to inspection, capillary refill normal and No edema Psych Appearance: grossly normal and well kempt Course Orders Ordered: ED Orders 07/16/21 15:10 Complete Blood Count AUTO DIFF Stat Comprehensive Metabolic Panel Stat Lipase Stat Partial Thromboplastin Time Stat Prothrombin Time INR Stat Troponin & CK Cardiac Panel Stat 07/16/21 15:13 EKG-12 Lead Stat 07/16/21 17:10 Troponin I Stat 07/16/21 18:12 COVID19 - ADMIT (DATA STORAGE SPECIALIST swab/PCR) Stat 07/17/21 00:15 PTT [Partial Thromboplastin Time] Q6H 07/17/21 06:15 PTT [Partial Thromboplastin Time] Q6H 07/17/21 12:15 PTT [Partial Thromboplastin Time] Q6H 07/17/21 18:15 PTT [Partial Thromboplastin Time] Q6H Heparin Sodium/Dextrose (Heparin Drip) 25,000 unit in 500 mls @ 16.329 mls/hr IV CONT JORDY; Protocol Discontinued Medications Aspirin (Aspirin 81 Mg Chew Tab) 324 mg PO NOW ONE Stop: 07/16/21 18:05 Heparin Sodium (Porcine) (Heparin 5,000 Unit/Ml Vial) 4,000 unit IV NOW ONE Stop: 07/16/21 18:05 Labetalol HCl (Labetalol 20 Mg/4 Ml Syringe) 10 mg IV NOW ONE Stop: 07/16/21 18:07 Vital Signs Vital signs: Vital Signs - 8 hr 07/16/21 15:13 07/16/21 16:20 07/16/21 18:01 Temperature 97.5 F L Pulse Rate 79 70 66 Respiratory Rate 22 16 18 Blood Pressure 226/99 H 180/76 H 185/83 H Pulse Oximetry 100 97 100 MDM - Chest Pain Lab Data Attestation: I reviewed the patient's lab results. Result diagrams: 07/16/21 15:10 07/16/21 15:10 Labs: Lab Results 07/16/21 07/16/21 07/16/21 Range/Units 15:10 15:10 15:10 WBC 6.9 (4.5-11.0) X10^3/uL RBC 4.27 (4.0-5.2) X10^6/uL Hgb 12.7 (12.0-16.0) g/dL Hct 38.6 (36-46) % MCV 90.5 (80-100) fL MCH 29.7 (26-34) PG MCHC 32.9 (30-36) % RDW 13.3 (11.6-14.8) % Plt Count 249 (150-400) X10^3/uL Neut % (Auto) 71.7 (50-75) % Lymph % (Auto) 18.3 L (25-40) % [place] % (Auto) 6.6 (3-14) % Eos % (Auto) 2.4 (2-4) % Baso % (Auto) 1.0 (0-2) % Neut # (Auto) 4900 (7178-7310) /uL Lymph # (Auto) 1300 (7452-9510) /uL [place] # (Auto) 500 (0-900) /uL Eos # (Auto) 200 (0-450) /uL Baso # (Auto) 100 (0-100) /uL PT 11.5 (10.1-12.7) SECONDS INR 1.0 (0.9-1.3) Sodium 133 L (137-145) mmol/L Potassium 3.9 (3.4-5.1) mmol/L Chloride 98 (98-107) mmol/L Carbon Dioxide 25 (22-32) mmol/L BUN 19 H (7-17) mg/dL Creatinine 0.71 (0.52-1.04) mg/dL Estimated GFR > 60.0 (>60) mL/min BUN/Creatinine Ratio 26.8 H (6-22) Glucose 103 (80-110) mg/dL Calcium 9.9 (8.4-10.2) mg/dL Total Bilirubin 0.4 (0.2-1.3) mg/dL AST 36 (14-36) IU/L ALT 29 (<35) IU/L Alkaline Phosphatase 64 (38-126) U/L Total Creatine Kinase 32 (30-135) U/L CK-MB (CK-2) TNP CK-MB (CK-2) Rel Index TNP Troponin I 0.013 (0.01-0.034) ng/mL Total Protein 8.2 (6.3-8.2) g/dL Albumin 5.2 H (3.5-5.0) g/dL Globulin 3.0 (1.7-4.1) g/dL Albumin/Globulin Ratio 1.7 (1.0-2.8) Lipase 159 (23-300) U/L 10// Range/Units 17:10 WBC (4.5-11.0) X10^3/uL RBC (4.0-5.2) X10^6/uL Hgb (12.0-16.0) g/dL Hct (36-46) % MCV (80-100) fL MCH (26-34) PG MCHC (30-36) % RDW (11.6-14.8) % Plt Count (150-400) X10^3/uL Neut % (Auto) (50-75) % Lymph % (Auto) (25-40) % [place] % (Auto) (3-14) % Eos % (Auto) (2-4) % Baso % (Auto) (0-2) % Neut # (Auto) (0532-1443) /uL Lymph # (Auto) (5702-3240) /uL [place] # (Auto) (0-900) /uL Eos # (Auto) (0-450) /uL Baso # (Auto) (0-100) /uL PT (10.1-12.7) SECONDS INR (0.9-1.3) Sodium (137-145) mmol/L Potassium (3.4-5.1) mmol/L Chloride (98-107) mmol/L Carbon Dioxide (22-32) mmol/L BUN (7-17) mg/dL Creatinine (0.52-1.04) mg/dL Estimated GFR (>60) mL/min BUN/Creatinine Ratio (6-22) Glucose (80-110) mg/dL Calcium (8.4-10.2) mg/dL Total Bilirubin (0.2-1.3) mg/dL AST (14-36) IU/L ALT (<35) IU/L Alkaline Phosphatase (38-126) U/L Total Creatine Kinase (30-135) U/L CK-MB (CK-2) CK-MB (CK-2) Rel Index Troponin I 0.174 H* (0.01-0.034) ng/mL Total Protein (6.3-8.2) g/dL Albumin (3.5-5.0) g/dL Globulin (1.7-4.1) g/dL Albumin/Globulin Ratio (1.0-2.8) Lipase (23-300) U/L ECG Data Attestation: I personally reviewed and interpreted this ECG as follows: Prior ECG tracings: not available for review Interpretation: Sinus rhythm Ventricular rate 80 Normal axis Normal QRS Normal QTC Nonspecific ST T wave changes MDM Narrative Medical decision making narrative: Patient arrived hypertensive however this did improve on its own without specific intervention here in the emergency department. She did have some chest discomfort upon arrival however this improved on its own as well. No respiratory distress. Chest x-ray is unremarkable. Nonspecific changes on her EKG. Initial troponin is negative. Repeat troponin positive. Is above the AMI cut off. She was then started on an aspirin, heparin. Will give beta-josse to help bring down blood pressure. Discussed the case with Dr. Garrison who stated that ideally patient would be transferred to a facility that has cardiac catheterization capability however there are no cardiac beds available in a reasonable distance from this facility. I discussed the case with Dr. hale. Internal medicine. Who will admit for further evaluation and treatment. Discuss this with the patient. She is aware the situation. She is currently pain-free. Critical Care Time Critical Care Time Critical Care Time: Yes Total Critical Care Time: 35 Attestation: The high probability of a clinically significant, sudden or life threatening deterioration of the [cardiovascular] system(s) required my full and direct attention, intervention and personal management. The aggregate critical care time was [35] minutes. This time is in addition to time spent performing reported procedures but includes the following: [x] Data Review and interpretation [x Patient assessment and monitoring of vital signs x [x] Medication orders and management Discharge Plan Departure Patient Disposition: Admitted As Inpatient Clinical Impression: Non-ST elevation WI (NSTEMI), Hypertension Admit Date/Time: 07/16/21 18:34
[2021-07-16 15:37] LABS: Alanine Aminotransferase 29 IU/L (<35); Albumin 5.2 g/dL (3.5-5.0); Albumin Globulin Ratio 1.7 (1.0-2.8); Alkaline Phosphatase 64 U/L (38-126); Aspartate Aminotransferase 36 IU/L (14-36); BUN Creatinine Ratio 26.8 (6-22); Bilirubin Total 0.4 mg/dL (0.2-1.3); Blood Urea Nitrogen 19 mg/dL (7-17); Calcium 9.9 mg/dL (8.4-10.2); Carbon Dioxide 25 mmol/L (22-32); Chloride 98 mmol/L (98-107); Creatine Kinase 32 U/L (30-135); Estimated Glomerular Filt Rate > 60.0 mL/min (>60); Glucose 103 mg/dL (80-110); HEMOLYSIS < 15 (0-50); Lipase 159 U/L (23-300); Potassium 3.9 mmol/L (3.4-5.1); Sodium 133 mmol/L (137-145); Total Protein 8.2 g/dL (6.3-8.2)
[2021-07-16 15:49] LABS: Troponin I 0.013 ng/mL (0.01-0.034)
[2021-07-16 17:54] LABS: Troponin I 0.174 ng/mL (0.01-0.034)
[2021-07-16 18:19] LABS: Prothrombin Time 11.5 SECONDS (10.1-12.7)
[2021-07-16 18:29] LABS: PTT Partial Thromboplastin Tim 34 SECONDS (26.4-36.2)
[2021-07-16] MEDS: LABETALOL 20 MG/4 ML SYRINGE 10 MG IV (18:35)
[2021-07-16] MEDS: ASPIRIN 81 MG CHEW TAB 324 MG PO (18:39)
[2021-07-16] MEDS: HEPARIN 5,000 UNIT/ML VIAL 4000 UNIT IV (18:39)
[2021-07-16] MEDS: HEPARIN DRIP 25,000 UNIT/500 ML IV.SOLN 16.329 UNIT IV (18:44)
--- NOTE | 2021-07-16 19:16 | PC.NURSE ---
Report called to Rajan MERCADO
[2021-07-16 19:49] LABS: COVID19 - ADMIT (NP swab/PCR) Negative (Negative)
--- NOTE | 2021-07-16 20:04 | DI.ECHO.S_ITS ---
[facility] +---------+ : : [address] : : : : [id number] : : : : Phone: [phone]+ Echocardiogram Report + + :Name: ELIU HADDAD Study Date: 07/17/2021 Height: 67 in : :[facility] ReadingLocation: Weight: 150 lb: : Gender: Female BSA: 1.8 m2 : :: 1945 Age: 75 yrs : :Reason For Study: Chest pain, recent NSTEMI : : Performed By: JESUS TABARES : :Referring: DOMINGA RIVERA : + + Interpretation Summary The ejection fraction is estimated to be 60-65%. There is mild aortic regurgitation. Procedure: A two-dimensional transthoracic echocardiogram with color flow and Doppler was performed. The study quality was technically adequate. There is no prior echocardiogram noted for this patient. The patient was in normal sinus rhythm during the exam. Left Ventricle: The left ventricle is normal in size and wall thickness. There is borderline proximal septal thickening noted. The ejection fraction is estimated to be 60-65%. Left ventricular wall motion is normal. Right Ventricle: The right ventricle is normal in size and function. Atria: The left atrial size is normal. The right atrium is mildly dilated. There is no Doppler evidence for an interatrial shunt. Mitral Valve: The mitral valve leaflets appear borderline thickened, but open well. There is trace mitral regurgitation. Aortic Valve: The aortic valve is trileaflet. The aortic valve opens well. There is mild aortic regurgitation. Tricuspid Valve: The tricuspid valve is normal. There is a trace or physiologic amount of tricuspid regurgitation. Pulmonary artery pressures cannot be estimated because of the lack of a measurable TR jet velocity but the IVC suggests a CVP of around 3 mmHg. Pulmonic Valve: The pulmonic valve leaflets are thin and pliable; valve motion is normal. There is a trace or physiologic amount of pulmonic regurgitation. Great Vessels: The aortic root is normal size. The ascending aorta is normal in size. The aortic arch is normal in size. The IVC is of normal diameter and collapses greater than 50% with a sniff. This suggests a low right atrial pressure of 3 mm Hg. Pericardium/ Pleura There is no pericardial effusion. There is an anterior echo-free space consistent with a fat pad. There is no pleural effusion. MMode/2D Measurements & Calculations LVIDd: 4.3 cm LVOT diam: 1.7 cm LVIDs: 3.0 cm Ao root diam: 3.0 cm FS: 29.6 % asc Aorta Diam: 2.9 cm IVSd: 0.89 cm Ao Arch Diam (Prox Trans): 2.1 cm LVPWd: 0.75 cm LV hansen. diameter/BSA (cm/m^2): 2.4 LV sys. diameter/BSA (cm/m^2): 1.7 LA A2 area: 11.7 cm2 RA long axis: 4.9 cm LA A4 area: 18.3 cm2 RA area: 15.1 cm2 LA length (vol): 4.8 cm RA vol: 39.3 ml LA vol: 38.0 ml RA : 22.0 ml/m2 LA vol index: 21.2 ml/m2 IVC diam: 1.9 cm RVD1 (basal): 3.1 cm TAPSE: 2.2 cm Doppler Measurements & Calculations Ao V2 max: 188.7 cm/sec LVOT Max Payam: 135.8 cm/sec Ao V2 mean: 120.4 cm/sec LV V1 max P.4 mmHg Ao max P.2 mmHg LV V1 VTI: 30.9 cm Ao mean P.6 mmHg ALEX(I,D): 1.8 cm2 Ao V2 VTI: 39.4 cm ALEX(V,D): 1.6 cm2 sev ratio: 0.78 ALEX indexed to BSA (cm^2/m^2): 0.99 MV E max payam: 77.4 cm/sec PA V2 max: 76.6 cm/sec MV A max payam: 65.1 cm/sec PA V2 mean: 57.8 cm/sec MV E/A: 1.2 PA mean P.4 mmHg Med Peak E' Payam: 8.7 cm/sec PA pr(Accel): 22.5 mmHg E/E' med: 8.9 Lat Peak E' Payam: 9.7 cm/sec E/E' lat: 8.0 E/e' average: 8.4 MV dec time: 0.24 sec SV(LVOT): 69.5 ml Reading Physician:02:52 PM
[2021-07-16] MEDS: ATORVASTATIN 20 MG TABLET 80 MG PO (20:18)
[2021-07-16] MEDS: ACETAMINOPHEN 325 MG TABLET 650 MG PO (20:18)
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
[2021-07-16] MEDS: NITROGLYCERIN 0.4 MG SL TAB SL ×3 (21:20→22:46)
[2021-07-16] MEDS: LORazepam 0.5 MG TABLET PO (23:25)
--- NOTE | 2021-07-16 23:31 | PC.NURSE ---
Pt reports continued CP after third dose of NTG SL rated 4/10 substernal pressure/ache, pt appears anxious no other apparent distress. Dr Sarah Srinivasan notified. gave verbal order to give 0.5 mg PO Ativan X 1. will monitor Heparin dripp and PTT and scheduled Troponin. lab here to draw
[2021-07-16 23:47] LABS: Troponin I 0.546 ng/mL (0.01-0.034)
--- NOTE | 2021-07-16 23:54 | PC.NURSE ---
critical lab of Troponin 0.546 reported by engineering lab technician Y Bojorquez @ 0000, Notified Dr Coy Lozano, No new orders .
[2021-07-17] VITALS (14 sets, daily range): BP systolic 128–156; BP diastolic 73–85; PULSE 61–78; RESP 16; TEMP 35.9–36.4; O2SAT 96–100
[2021-07-17 01:10] LABS: PTT Partial Thromboplastin Tim 122 SECONDS (26.4-36.2)
[2021-07-17] MEDS: LEVOTHYROXINE 88 MCG TABLET PO (06:24)
[2021-07-17 06:38] LABS: Add Manual Diff / Slide Review NO; Basophils Absolute Auto 0 /uL (0-100); Basophils Percent Auto 0.9 % (0-2); Eosinophils Absolute Auto 300 /uL (0-450); Eosinophils Percent Auto 5.4 % (2-4); Hematocrit 35.3 % (36-46); Hemoglobin 11.6 g/dL (12.0-16.0); Lymphocytes Absolute Auto 1200 /uL (1100-4500); Lymphocytes Percent Auto 24.7 % (25-40); Mean Corpuscular Hemoglobin 29.9 PG (26-34); Mean Corpuscular Volume 90.6 fL (80-100); Monocytes Absolute Auto 500 /uL (0-900); Monocytes Percent Auto 9.7 % (3-14); Neutrophils Absolute Auto 2800 /uL (1500-7000); Neutrophils Percent Auto 59.3 % (50-75); Platelet Count 204 X10^3/uL (150-400); Red Blood Cell Count 3.89 X10^6/uL (4.0-5.2); Red Cell Distribution Width 13.3 % (11.6-14.8); White Blood Cell Count 4.7 X10^3/uL (4.5-11.0)
[2021-07-17 06:43] LABS: PTT Partial Thromboplastin Tim 62 SECONDS (26.4-36.2)
[2021-07-17 06:45] LABS: BUN Creatinine Ratio 21.3 (6-22); Blood Urea Nitrogen 16 mg/dL (7-17); Calcium 9.4 mg/dL (8.4-10.2); Carbon Dioxide 28 mmol/L (22-32); Chloride 98 mmol/L (98-107); Estimated Glomerular Filt Rate > 60.0 mL/min (>60); Glucose 103 mg/dL (80-110); HEMOLYSIS < 15 (0-50); Potassium 4.6 mmol/L (3.4-5.1); Sodium 133 mmol/L (137-145)
[2021-07-17] MEDS: LOSARTAN 50 MG TABLET PO (10:12)
[2021-07-17] MEDS: ASPIRIN EC 81 MG TABLET PO (10:12)
--- NOTE | 2021-07-17 10:46 | P.PN_ITS ---
Subjective Subjective Date Patient Seen: 07/17/21 Time Patient Seen: 10:46 Interval history: 75 year old female admitted with NSTEMI. On heparin infusion, pending transfer for available cath laboratory technician. No beds today. Stable on heparin infusion. Still with 1-2/10 substernal chest pressure this AM. Improved since taking ativan overnight. No real help with nitro. Mild headache overnight, now resolved. No nausea, vomiting, abdominal pain, dark stools or BRBPR. Exam Vital Signs (past 8 hours): - 07/17/21 04:00 07/17/21 05:04 07/17/21 08:00 Temperature 97.6 F Pulse Rate 74 Respiratory Rate 16 Blood Pressure 128/77 Pulse Oximetry 100 99 99 07/17/21 09:00 Temperature 96.6 F L Pulse Rate 61 Respiratory Rate 16 Blood Pressure 153/85 H Pulse Oximetry 100 Oxygen Delivery Method Nasal Cannula Oxygen Flow Rate 3 Narrative Exam Narrative: GEN: no acute distress HEENT: moist mucous membranes, PERRL NECK: trachea midline, no JVD CV: regular rate rhythm, no murmurs PULM: clear bilaterally, no wheezes, rhonchi, rales ABD: soft, nontender, nondistended, no organomegaly, normal bowel sounds EXT: warm and well perfused with trace edema SKIN: no rashes noted NEURO: awake, alert oriented, no focal deficits PSYCH: anxious, pleasant, cooperative Objective Labs Result Diagrams: 07/17/21 06:15 07/17/21 06:15 Labs: Laboratory Results - last 24 hr 07/16/21 07/16/21 07/16/21 15:10 15:10 15:10 WBC 6.9 RBC 4.27 Hgb 12.7 Hct 38.6 MCV 90.5 MCH 29.7 MCHC 32.9 RDW 13.3 Plt Count 249 Neut % (Auto) 71.7 Lymph % (Auto) 18.3 L [place] % (Auto) 6.6 Eos % (Auto) 2.4 Baso % (Auto) 1.0 Neut # (Auto) 4900 Lymph # (Auto) 1300 [place] # (Auto) 500 Eos # (Auto) 200 Baso # (Auto) 100 PT 11.5 INR 1.0 APTT Sodium 133 L Potassium 3.9 Chloride 98 Carbon Dioxide 25 BUN 19 H Creatinine 0.71 Estimated GFR > 60.0 BUN/Creatinine Ratio 26.8 H Glucose 103 Calcium 9.9 Total Bilirubin 0.4 AST 36 ALT 29 Alkaline Phosphatase 64 Total Creatine Kinase 32 CK-MB (CK-2) TNP CK-MB (CK-2) Rel Index TNP Troponin I 0.013 Total Protein 8.2 Albumin 5.2 H Globulin 3.0 Albumin/Globulin Ratio 1.7 Lipase 159 SARS-CoV-2 (PCR) 07/16/21 07/16/21 07/16/21 15:10 17:10 18:40 WBC RBC Hgb Hct MCV MCH MCHC RDW Plt Count Neut % (Auto) Lymph % (Auto) [place] % (Auto) Eos % (Auto) Baso % (Auto) Neut # (Auto) Lymph # (Auto) [place] # (Auto) Eos # (Auto) Baso # (Auto) PT INR APTT 34 Sodium Potassium Chloride Carbon Dioxide BUN Creatinine Estimated GFR BUN/Creatinine Ratio Glucose Calcium Total Bilirubin AST ALT Alkaline Phosphatase Total Creatine Kinase CK-MB (CK-2) CK-MB (CK-2) Rel Index Troponin I 0.174 H* Total Protein Albumin Globulin Albumin/Globulin Ratio Lipase SARS-CoV-2 (PCR) Negative 07/16/21 07/17/21 07/17/21 23:15 00:35 06:15 WBC RBC Hgb Hct MCV MCH MCHC RDW Plt Count Neut % (Auto) Lymph % (Auto) [place] % (Auto) Eos % (Auto) Baso % (Auto) Neut # (Auto) Lymph # (Auto) [place] # (Auto) Eos # (Auto) Baso # (Auto) PT INR APTT 122 H* D 62 H D Sodium Potassium Chloride Carbon Dioxide BUN Creatinine Estimated GFR BUN/Creatinine Ratio Glucose Calcium Total Bilirubin AST ALT Alkaline Phosphatase Total Creatine Kinase CK-MB (CK-2) CK-MB (CK-2) Rel Index Troponin I 0.546 H* Total Protein Albumin Globulin Albumin/Globulin Ratio Lipase SARS-CoV-2 (PCR) 07/17/21 07/17/21 07/17/21 06:15 06:15 06:15 WBC 4.7 RBC 3.89 L Hgb 11.6 L Hct 35.3 L MCV 90.6 MCH 29.9 MCHC 33.0 RDW 13.3 Plt Count 204 Neut % (Auto) 59.3 Lymph % (Auto) 24.7 L [place] % (Auto) 9.7 Eos % (Auto) 5.4 H Baso % (Auto) 0.9 Neut # (Auto) 2800 Lymph # (Auto) 1200 [place] # (Auto) 500 Eos # (Auto) 300 Baso # (Auto) 0 PT INR APTT Sodium 133 L Potassium 4.6 Chloride 98 Carbon Dioxide 28 BUN 16 Creatinine 0.75 Estimated GFR > 60.0 BUN/Creatinine Ratio 21.3 Glucose 103 Calcium 9.4 Total Bilirubin AST ALT Alkaline Phosphatase Total Creatine Kinase CK-MB (CK-2) CK-MB (CK-2) Rel Index Troponin I 0.180 H* Total Protein Albumin Globulin Albumin/Globulin Ratio Lipase SARS-CoV-2 (PCR) [facility] Medical History Abnormal mammogram of right breast Acquired hypothyroidism Allergies Ankle pain Asymptomatic microscopic hematuria Chicken pox Essential hypertension (2014) Fatigue Fractures (~2013) Hemoptysis Hepatitis C (~2015) Herpes Infertility Intermittent chest pain Measles Mumps KALIN (obstructive sleep apnea) Osteopenia (11/2014) Right ankle pain Shortness of breath Skin rash (~2011) Throat discomfort Wears glasses Surgical History Anesthesia Breast cyst History of appendectomy History of breast implant History of knee surgery (~2013) History of surgery History of tonsillectomy Family History Father Cancer History of heart disease Gout Mother Hypertension Brother Prostate cancer Grandfather Cancer Grandmother No problems noted. Social History household members: spouse Smoking Status: Never smoker second hand exposure: No alcohol intake: current substance use type: marijuana Assessment & Plan Assessment & Plan narrative: Ms. Raines is a 75W with PMH HTN who presents with chest pain found to have NSTEMI. 1. NSTEMI, acute -initial troponin negative, repeat trop 0.174 and peaked at 0.546 then decreased again this AM to 0.180. No need for further trending. -given asa in ED -ordered for asa, atorvastatin 80mg -ordered for heparin gtt, to continue at least 48 hours. -ordered for ECHO, pending. -no improvement with nitro 2. Hypertension -continue home dose losartan, still slightly hypertensive will add 25 mg PO metoprolol daily. 3. Hypothyroidism -continue synthroid 4. Microscopic hematuria -noted in 06/2021 visit to urology office -monitor for overt bleeding as starting on asa/heparin gtt CODE: Full Proxy: Vera Raines, DVT ppx: full AC with heparin gtt I have utilized all available immediate resources to obtain, update, or review the patient's current medications. Dispo: pending transfer to higher level of care for further cardiac evaluation in setting of NSTEMI. Time Spent With Patient Critical Care time: I spent a total of [] minutes of critical care time on this patient's care today; this time is exclusive of procedural time. Quality VTE Deep Vein Thrombosis/Pulmonary Embolism Present on Admission: No
[2021-07-17] MEDS: METOPROLOL ER 25 MG TABLET PO (12:07)
[2021-07-17 12:46] LABS: PTT Partial Thromboplastin Tim 54 SECONDS (26.4-36.2)
--- NOTE | 2021-07-17 13:07 | CM.IDA ---
Initial DCP Assessment Note Pt is a 75 yo female, resident [facility], admitted after NSTEMI, now awaiting transfer to higher level of care for microbiological laboratory technician PCP: Marvel Martinez Payer: Gurmeet JOLLEY Assisting RN DC community development planner Isabel stephens. Reviewed chart, met w/patient and spouse Vera to introduce role. Patient appears in good spirits, awaiting transfer to higher level of care pending bed availability. Patient denies needs from this REO ASSET MANAGER, from home w/supportive spouse, indp. and active at her baseline. Has supportive friends and family. No needs expected from DC planning team; will continue to follow closely and reassess DCP needs if patient remains at . RICKY Kirk Discharge Planning/Care Management CM Discharge Assessment Start: 07/17/21 13:02 Freq: Status: Active Protocol: Document 07/17/21 13:02 CLAUDIA (Rec: 07/17/21 13:07 CLAUDIA [id number]) Discharge Planning Assessment Assigned Machine Programmer RICKY Clark DPOA/Assigned Designee Name Vera Raines, spouse Contact Information [phone] Advance Directives? No History Provided By Patient,Significant Other Prior Living Arrangements House Household Members spouse Type of transporation used prior to Drives own vehicle admit Independent with ADL's Yes Is patient alert and oriented? Yes Comment Awaiting transfer for microbiological laboratory technician Discharge Plan Transfer to Higher Level of Care Transportation Arrangement BLS Whiteboard Updated in Patient Room with Yes name and ext. # of Machine Programmer
[2021-07-17 18:42] LABS: PTT Partial Thromboplastin Tim 54 SECONDS (26.4-36.2)
[2021-07-17] MEDS: ATORVASTATIN 20 MG TABLET 80 MG PO (21:13)
[2021-07-18 03:00] VITALS: O2SAT 100; O2SAT 98
[2021-07-18 03:14] VITALS: BP 132/74; PULSE 65; RESP 16; TEMP 36.4; O2SAT 98
[2021-07-18 07:55] LABS: Add Manual Diff / Slide Review NO; Basophils Absolute Auto 0 /uL (0-100); Basophils Percent Auto 0.3 % (0-2); Eosinophils Absolute Auto 200 /uL (0-450); Eosinophils Percent Auto 3.8 % (2-4); Hematocrit 35.3 % (36-46); Hemoglobin 11.7 g/dL (12.0-16.0); Lymphocytes Absolute Auto 1300 /uL (1100-4500); Lymphocytes Percent Auto 20.9 % (25-40); Mean Corpuscular HGB Conc 33.3 % (30-36); Mean Corpuscular Hemoglobin 29.8 PG (26-34); Mean Corpuscular Volume 89.6 fL (80-100); Monocytes Absolute Auto 500 /uL (0-900); Monocytes Percent Auto 7.9 % (3-14); Neutrophils Absolute Auto 4100 /uL (1500-7000); Neutrophils Percent Auto 67.1 % (50-75); Platelet Count 213 X10^3/uL (150-400); Red Blood Cell Count 3.94 X10^6/uL (4.0-5.2); Red Cell Distribution Width 13.3 % (11.6-14.8); White Blood Cell Count 6.1 X10^3/uL (4.5-11.0)
[2021-07-18 08:00] VITALS: O2SAT 96; O2SAT 97
[2021-07-18 08:06] LABS: BUN Creatinine Ratio 24.7 (6-22); Blood Urea Nitrogen 19 mg/dL (7-17); Calcium 9.3 mg/dL (8.4-10.2); Carbon Dioxide 27 mmol/L (22-32); Chloride 99 mmol/L (98-107); Cholesterol 114 mg/dL (140-199); Estimated Glomerular Filt Rate > 60.0 mL/min (>60); Glucose 98 mg/dL (80-110); HDL Cholesterol 59 mg/dL (40-60); HEMOLYSIS < 15 (0-50); LDL Cholesterol Calculated 39 mg/dL (<100); Magnesium 1.9 mg/dL (1.6-2.3); Potassium 4.6 mmol/L (3.4-5.1); Sodium 132 mmol/L (137-145); Triglycerides 78 mg/dL (35-150)
[2021-07-18 08:06] LABS: PTT Partial Thromboplastin Tim 56 SECONDS (26.4-36.2)
[2021-07-18] MEDS: HEPARIN DRIP 25,000 UNIT/500 ML IV.SOLN 13.295 UNIT IV (08:45)
[2021-07-18 09:00] VITALS: BP 137/74; PULSE 61; RESP 16; TEMP 36.4; O2SAT 96
[2021-07-18] MEDS: METOPROLOL ER 25 MG TABLET PO (10:04)
[2021-07-18] MEDS: ASPIRIN EC 81 MG TABLET PO (10:04)
[2021-07-18] MEDS: LOSARTAN 50 MG TABLET PO (10:04)
--- NOTE | 2021-07-18 11:05 | P.DS_ITS ---
History of Present Illness History of Present Illness Date Patient Seen: 07/18/21 Time Patient Seen: 11:05 Chief complaint: chest pain, recent heart attack Narrative: Per Dr. Rivera, 75W with PMH HTN and hypothyroid who presents with chest pain. She states that for the last couple months she has had labored breathing and shortness of breath. This past Wednesday she noted that in addition to those symptoms she had chest tightness and jaw discomfort. These symptoms resolved. Today she went to see her PCP who recommended cardiac workup, did an EKG and told her that she had a heart attack previously. She was on her way home when she noted she noted chest tightness so she presented to the hospital. In the ED, workup was done she was noted to have blood pressure of 226/99. She was given labetalol. This improved her blood pressure. Labs were notable for WBC 6.9, hgb 12.7, na 133, creatinine 0.71, LFTs ok, trop 0.013->0.174. EKG showed ST depression in lateral leads. She was given aspirin and started on heparin drip. Attempt was made to transfer to hospital with cardiac cath capability but no beds were available. She was admitted for further treatment. Discharge Providers Provider Date of admission: 07/16/21 18:34 Discharge Date: 07/18/21 Primary care physician: NIMCO Li Discharge provider: Clark Hernandes DO Summary Hospital Course Discharge Diagnosis: Please see hospital course by problem list noted below. Hospital Course: Ms. Raines is a 75W with PMH HTN who presented with chest pain found to have NSTEMI. 1. NSTEMI, acute -initial troponin negative at 0.013, repeat trop 0.174 in the ER and peaked at 0.546 then decreased again this AM to 0.180. No need for further trending. EKG in the ER showed precordial ST depressions (V4-6) which appeared to improve over time on repeat tracings. Chest pain did resolve ultimately by 07/18. Nitrog lycerin given initially without improvement. -continued asa 81 mg, atorvastatin 80 mg -initially patient recommended for transfer. No bed available until 07/18 when arranged for further cardiac workup at [facility] with Dr. Fitzgerald. - TSH and A1c from this AM pending. Though no evidence of symptoms to suggest diabetes or thyroid problems currently. Lipids show TC 114, LDL 39, HDL 59, TG 78. - echocardiogram showed a normal EF without signficant valvular disease or wall motion abnormalities. 2. Hypertension -continued home dose losartan, slightly hypertensive initially added 25 mg PO metoprolol succinate daily with improved blood pressures. 3. Hypothyroidism -continue synthroid 4. Microscopic hematuria -noted in 06/2021 visit to urology office -monitor for overt bleeding as starting on asa/heparin gtt. No evidence thus far. CODE: Full Proxy: Vera Raines, DVT ppx: full AC with heparin gtt I have utilized all available immediate resources to obtain, update, or review the patient's current medications. Dispo: transfer to higher level of care for further cardiac evaluation in se tting of NSTEMI. Status at Discharge Cognitive/behavioral status at discharge: oriented Functional status at discharge: independent ambulation Time Spent with Patient Time spent: Greater than 30 minutes Exam Vital Signs (past 8 hours): - 07/18/21 03:14 07/18/21 09:00 Temperature 97.6 F 97.6 F Pulse Rate 65 61 Respiratory Rate 16 16 Blood Pressure 132/74 137/74 Pulse Oximetry 98 96 Oxygen Delivery Method Nasal Cannula Oxygen Flow Rate 0 Narrative Exam Narrative: GEN: no acute distress HEENT: moist mucous membranes, PERRL NECK: trachea midline, no JVD CV: regular rate rhythm, no murmurs PULM: clear bilaterally, no wheezes, rhonchi, rales ABD: soft, nontender, nondistended, no organomegaly, normal bowel sounds EXT: warm and well perfused with trace edema SKIN: no rashes noted NEURO: awake, alert oriented, no focal deficits PSYCH: anxious, pleasant, cooperative Objective Imaging Echo: Radiologist's impression: [address] [address] Echocardiography Report Signed Patient: Eliu Raines MR#: [id number] : 1945 Acct:[id number] Age/Sex: 75 / F Date of Service: 07/16/21 Loc: 206-1 Accession Number: [id number] ?? Procedure: EC echo doppler complete Ordering Provider: Dimas Rivera MD ? [facility] +---------+? Hospital? +---------+ : ? :? [address] ? : ? : : ? :? [place], [place] ? : ? : : ? :? [address] ? : ? : : ? : ? Phone: [phone] : ? : [phone]? [phone]? +---------+ ? Echocardiogram Report + + :Name: ELLIOTT RAINESHLEEN Christian ? ? ? Study Date: 07/17/2021? Height: 67 in : :Hospital ? ? ReadingLocation:? Weight: 150 lb: : ? Gender: Female? BSA: 1.8 m2 ? : :: 1945? Age: 75 yrs ? : :Reason For Study: Chest pain, recent NSTEMI? : : ? Performed By: JESUS TABARES? : :Referring: DIMAS RIVERA? : + + Interpretation Summary The ejection fraction is estimated to be 60-65%. There is mild aortic regurgitation. ? Procedure: ? A two-dimensional transthoracic echocardiogram with color flow and Doppler was performed. The study quality was technically adequate. There is no prior echocardiogram noted for this patient. The patient was in normal sinus rhythm during the exam. Left Ventricle: ? The left ventricle is normal in size and wall thickness. There is borderline proximal septal thickening noted. The ejection fraction is estimated to be 60-65%. Left ventricular wall motion is normal. Right Ventricle: ? The right ventricle is normal in size and function. Atria: ? The left atrial size is normal. The right atrium is mildly dilated. There is no Doppler evidence for an interatrial shunt. Mitral Valve: ? The mitral valve leaflets appear borderline thickened, but open well. There is trace mitral regurgitation. Aortic Valve: ? The aortic valve is trileaflet. The aortic valve opens well. There is mild aortic regurgitation. Tricuspid Valve: ? The tricuspid valve is normal. There is a trace or physiologic amount of tricuspid regurgitation. Pulmonary artery pressures cannot be estimated because of the lack of a measurable TR jet velocity but the IVC suggests a CVP of around 3 mmHg. Pulmonic Valve: ? The pulmonic valve leaflets are thin and pliable; valve motion is normal. There is a trace or physiologic amount of pulmonic regurgitation. Great Vessels: ? The aortic root is normal size. The ascending aorta is normal in size. The aortic arch is normal in size. The IVC is of normal diameter and collapses greater than 50% with a sniff. This suggests a low right atrial pressure of 3 mm Hg. Pericardium/ Pleura ? There is no pericardial effusion. There is an anterior echo-free space consistent with a fat pad. There is no pleural effusion. ? MMode/2D Measurements & Calculations LVIDd: 4.3 cm? LVOT diam: 1.7 cm LVIDs: 3.0 cm? Ao root diam: 3.0 cm FS: 29.6 % ? asc Aorta Diam: 2.9 cm IVSd: 0.89 cm? Ao Arch Diam (Prox Trans): 2.1 cm LVPWd: 0.75 cm LV hansen. diameter/BSA (cm/m^2): 2.4 LV sys. diameter/BSA (cm/m^2): 1.7 ? LA A2 area: 11.7 cm2 ? RA long axis: 4.9 cm LA A4 area: 18.3 cm2 ? RA area: 15.1 cm2 LA length (vol): 4.8 cm? RA vol: 39.3 ml LA vol: 38.0 ml? RA : 22.0 ml/m2 LA vol index: 21.2 ml/m2 ? IVC diam: 1.9 cm ? RVD1 (basal): 3.1 cm TAPSE: 2.2 cm ? Doppler Measurements & Calculations Ao V2 max: 188.7 cm/sec? LVOT Max Payam: 135.8 cm/sec Ao V2 mean: 120.4 cm/sec ? LV V1 max P.4 mmHg Ao max P.2 mmHg ? LV V1 VTI: 30.9 cm Ao mean P.6 mmHg ? ALEX(I,D): 1.8 cm2 Ao V2 VTI: 39.4 cm ? ALEX(V,D): 1.6 cm2 ? sev ratio: 0.78 ? ALEX indexed to BSA (cm^2/m^2): 0.99 ? MV E max payam: 77.4 cm/sec? PA V2 max: 76.6 cm/sec MV A max payam: 65.1 cm/sec? PA V2 mean: 57.8 cm/sec MV E/A: 1.2? PA mean P.4 mmHg Med Peak E' Payam: 8.7 cm/sec? ? ? PA pr(Accel): 22.5 mmHg E/E' med: 8.9 Lat Peak E' Payam: 9.7 cm/sec E/E' lat: 8.0 E/e' average: 8.4 MV dec time: 0.24 sec ? SV(LVOT): 69.5 ml ? Reading Physician:02:52 PM Labs Result Diagrams: 07/18/21 07:25 07/18/21 07:25 Labs: Laboratory Results - last 24 hr 07/17/21 07/17/21 07/18/21 12:10 18:24 05:00 WBC RBC Hgb Hct MCV MCH MCHC RDW Plt Count Neut % (Auto) Lymph % (Auto) [place] % (Auto) Eos % (Auto) Baso % (Auto) Neut # (Auto) Lymph # (Auto) [place] # (Auto) Eos # (Auto) Baso # (Auto) APTT 54 H 54 H 56 H Sodium Potassium Chloride Carbon Dioxide BUN Creatinine Estimated GFR BUN/Creatinine Ratio Glucose Calcium Magnesium Triglycerides Cholesterol LDL Cholesterol, Calc HDL Cholesterol 07/18/21 07/18/21 07:25 07:25 WBC 6.1 RBC 3.94 L Hgb 11.7 L Hct 35.3 L MCV 89.6 MCH 29.8 MCHC 33.3 RDW 13.3 Plt Count 213 Neut % (Auto) 67.1 Lymph % (Auto) 20.9 L [place] % (Auto) 7.9 Eos % (Auto) 3.8 Baso % (Auto) 0.3 Neut # (Auto) 4100 Lymph # (Auto) 1300 [place] # (Auto) 500 Eos # (Auto) 200 Baso # (Auto) 0 APTT Sodium 132 L Potassium 4.6 Chloride 99 Carbon Dioxide 27 BUN 19 H Creatinine 0.77 Estimated GFR > 60.0 BUN/Creatinine Ratio 24.7 H Glucose 98 Calcium 9.3 Magnesium 1.9 Triglycerides 78 Cholesterol 114 L LDL Cholesterol, Calc 39 HDL Cholesterol 59 PFSH Medical History Abnormal mammogram of right breast Acquired hypothyroidism Allergies Ankle pain Asymptomatic microscopic hematuria Chicken pox Essential hypertension (2014) Fatigue Fractures (~2013) Hemoptysis Hepatitis C (~2015) Herpes Infertility Intermittent chest pain Measles Mumps KALIN (obstructive sleep apnea) Osteopenia (11/2014) Right ankle pain Shortness of breath Skin rash (~2011) Throat discomfort Wears glasses Surgical History Anesthesia Breast cyst History of appendectomy History of breast implant History of knee surgery (~2013) History of surgery History of tonsillectomy Family History Father Cancer History of heart disease Gout Mother Hypertension Brother Prostate cancer Grandfather Cancer Grandmother No problems noted. Social History household members: spouse Smoking Status: Never smoker second hand exposure: No alcohol intake: current substance use type: marijuana Discharge Plan Discharge Plan Disposition: Xfer Acute Care Hospital Discharge Health Status Health Concerns: NSTEMI Discharge Data Primary Care Provider: Marvel Martinez VTE Deep Vein Thrombosis/Pulmonary Embolism Present on Admission: No
[2021-07-18 11:26] LABS: Hemoglobin A1C% w Est Avg Glu 5.5 % (4.0-6.0)
[2021-07-18 11:54] LABS: TSH w/ Reflex to FT4 1.64 uIU/mL (0.47-4.68)
--- NOTE | 2021-07-18 12:38 | PC.NURSE ---
Addendum entered by Zahira Cabrera R.N. 07/18/21 13:09: Report called to Geoff. Original Note: Assess- Patient leaving now via ALS as she is being transferred over to [facility] to heart lab systems analyst. Patient denied chest pain earlier. Stated that she did have a small amount of dizziness but this resolved. Up with one person assist and steady on her feet. Her PTT was 56 this am and no changes were made to heparin gtt. Patient is leaving with heparin gtt in place.
[2021-07-23 10:36] LABS: PT 1:1 NP 10.4 sec (9.1-12.0); aPTT 23.3 sec (22.9-30.2)
== END 2021-07-18 12:45 | disposition short-term general hospital (02) | DRG 282 ==
LOC: ED 18:29 → AC 18:35
PROVIDERS: Emergency Medicine; Internal Medicine; Admitting Provider Internal Medicine; Emergency Provider Emergency Medicine; PCP Nurse Practitioner Family; Referring Provider Emergency Medicine; Visit Provider Internal Medicine
DX: I21.4 Non-ST elevation (NSTEMI) myocardial infarction (principal); R31.21 Asymptomatic microscopic hematuria; I10 Essential (primary) hypertension; E03.9 Hypothyroidism, unspecified; Z20.822 Contact with and (suspected) exposure to COVID-19; R07.9 Chest pain, unspecified; R06.02 Shortness of breath; R53.83 Other fatigue
CPT/HCPCS: 36415; 71046; 80048; 80053; 80061; 82550; 83036; 83690; 83735; 84443; 84484; 85025; 85610; 85611; 85730; 85732; 87635; 93005; 93010; 93306; 94760; 94762; 96365; 96375; 99283; 99291; C9803; J1644

== ENCOUNTER → 2021-07-24 14:12 | Outpatient (CLI) | payer OTHER, SELFPAY ==
[2021-07-16 19:00] VITALS: BMI 23.8
[2021-07-24 14:37] LABS: Hemoglobin 11.2 g/dL (12.0-16.0); Mean Corpuscular Hemoglobin 30.6 PG (26-34); Mean Corpuscular Volume 90.1 fL (80-100); Platelet Count 270 X10^3/uL (150-400); Red Blood Cell Count 3.66 X10^6/uL (4.0-5.2); White Blood Cell Count 5.1 X10^3/uL (4.5-11.0)
[2021-07-24 16:14] LABS: Free T4, Direct Thyroxine 1.63 ng/dL (0.78-2.19)
[2021-07-24 16:28] LABS: Thyroid Stimulating Hormone 1.42 uIU/mL (0.47-4.68)
[2021-07-24 17:19] LABS: Vitamin D 25 Hydroxy (D3) 44.9 ng/mL (30.0-100.0)
[2021-07-25 08:57] LABS: Vitamin B12 Reflex MMA if <400 638 pg/mL (239-931)
[2021-07-25 09:03] LABS: Alanine Aminotransferase 31 IU/L (<35); Albumin 4.4 g/dL (3.5-5.0); Albumin Globulin Ratio 1.7 (1.0-2.8); Alkaline Phosphatase 63 U/L (38-126); Aspartate Aminotransferase 29 IU/L (14-36); BUN Creatinine Ratio 30.1 (6-22); Bilirubin Total 0.2 mg/dL (0.2-1.3); Blood Urea Nitrogen 22 mg/dL (7-17); Calcium 9.9 mg/dL (8.4-10.2); Carbon Dioxide 26 mmol/L (22-32); Chloride 98 mmol/L (98-107); Estimated Glomerular Filt Rate > 60.0 mL/min (>60); Globulin 2.6 g/dL (1.7-4.1); Glucose 92 mg/dL (80-110); HEMOLYSIS < 15 (0-50); Potassium 4.7 mmol/L (3.4-5.1); Sodium 138 mmol/L (137-145)
== END ==
PROVIDERS: PCP Nurse Practitioner Family; Referring Provider Nurse Practitioner Family; Visit Provider Nurse Practitioner Family
DX: E03.9 Hypothyroidism, unspecified (principal); M85.80 Other specified disorders of bone density and structure, unspecified site; R06.02 Shortness of breath; R07.9 Chest pain, unspecified; R53.83 Other fatigue
CPT/HCPCS: 36415; 80053; 82306; 82607; 84439; 84443; 85027

== ENCOUNTER → 2021-08-21 11:28 | Outpatient (CLI) | payer OTHER, SELFPAY ==
[2021-07-16 19:00] VITALS: BMI 23.8
[2021-08-21 12:07] LABS: Add Manual Diff / Slide Review NO; Basophils Absolute Auto 100 /uL (0-100); Basophils Percent Auto 0.8 % (0-2); Eosinophils Absolute Auto 100 /uL (0-450); Eosinophils Percent Auto 1.9 % (2-4); Hematocrit 33.3 % (36-46); Hemoglobin 11.2 g/dL (12.0-16.0); Lymphocytes Absolute Auto 800 /uL (1100-4500); Lymphocytes Percent Auto 11.3 % (25-40); Mean Corpuscular HGB Conc 33.6 % (30-36); Mean Corpuscular Hemoglobin 29.9 PG (26-34); Mean Corpuscular Volume 88.9 fL (80-100); Monocytes Absolute Auto 600 /uL (0-900); Monocytes Percent Auto 8.4 % (3-14); Neutrophils Absolute Auto 5400 /uL (1500-7000); Neutrophils Percent Auto 77.6 % (50-75); Platelet Count 247 X10^3/uL (150-400); Red Blood Cell Count 3.74 X10^6/uL (4.0-5.2); Red Cell Distribution Width 13.2 % (11.6-14.8)
== END ==
PROVIDERS: PCP Nurse Practitioner Family; Referring Provider Nurse Practitioner Family; Visit Provider Nurse Practitioner Family
DX: D64.9 Anemia, unspecified (principal)
CPT/HCPCS: 36415; 85025

== ENCOUNTER → 2021-08-26 11:12 | Outpatient (CLI) | payer OTHER, SELFPAY ==
[2021-07-16 19:00] VITALS: BMI 23.8
[2021-08-26 11:37] LABS: Appearance Urine UA CLEAR; Bilirubin Urine UA NEGATIVE (NEGATIVE); Color Urine UA YELLOW; Glucose Urine UA NEGATIVE (Negative); Ketones Urine UA NEGATIVE (NEGATIVE); Leukocyte Esterase Urine UA NEGATIVE (NEGATIVE); Nitrite Urine UA NEGATIVE (Negative); Occult Blood Urine UA 2+ (Negative); Protein Urine UA NEGATIVE (Negative); Urobilinogen Urine UA 0.2 E.U./dL (0.2)
[2021-08-26 11:39] LABS: pH Urine UA 5.5 (4.5-8.0)
[2021-08-26 11:47] LABS: Bacteria Urine None Seen; Culture Indicated Urine Cult Not Indicated; RBC Urine None Seen (0-5/HPF); WBC Urine None Seen (0-5/HPF)
[2021-08-26 13:18] LABS: HEMOLYSIS < 15 (0-50); Iron 66 ug/dL (37-170)
[2021-08-26 13:30] LABS: Percent Iron Saturation 22 % (15-50); Total Iron Binding Capacity 304 ug/dL (265-497); Transferrin 229 mg/dL (206-381)
[2021-08-26 13:56] LABS: Ferritin 103 ng/mL (11-264)
[2021-08-26 14:28] LABS: Folate 14.5 ng/mL (2.76-20.0); Vitamin B12 622 pg/mL (239-931)
== END ==
PROVIDERS: PCP Nurse Practitioner Family; Referring Provider Nurse Practitioner Family; Visit Provider Nurse Practitioner Family
DX: D64.9 Anemia, unspecified (principal)
CPT/HCPCS: 36415; 81001; 82607; 82728; 82746; 83540; 83550

== ENCOUNTER → 2021-09-03 14:03 | Outpatient (ROUT) | payer OTHER, SELFPAY ==
[2021-07-16 19:00] VITALS: BMI 23.8
[2021-09-05 17:09] LABS: Fecal Immunochemical Test Negative (Negative)
== END ==
PROVIDERS: PCP Nurse Practitioner Family; Visit Provider Nurse Practitioner Family
DX: D64.9 Anemia, unspecified (principal)
CPT/HCPCS: 82274

== ENCOUNTER → 2021-10-23 13:38 | Outpatient (CLI) | payer OTHER, SELFPAY ==
[2021-07-16 19:00] VITALS: BMI 23.8
[2021-10-23 14:41] LABS: Add Manual Diff / Slide Review NO; Basophils Absolute Auto 0 /uL (0-100); Basophils Percent Auto 0.8 % (0-2); Eosinophils Absolute Auto 200 /uL (0-450); Eosinophils Percent Auto 3.1 % (2-4); Hematocrit 35.1 % (36-46); Hemoglobin 11.9 g/dL (12.0-16.0); Lymphocytes Absolute Auto 1100 /uL (1100-4500); Lymphocytes Percent Auto 18.7 % (25-40); Mean Corpuscular HGB Conc 33.9 % (30-36); Mean Corpuscular Hemoglobin 30.3 PG (26-34); Mean Corpuscular Volume 89.2 fL (80-100); Monocytes Absolute Auto 400 /uL (0-900); Monocytes Percent Auto 7.5 % (3-14); Neutrophils Absolute Auto 4000 /uL (1500-7000); Neutrophils Percent Auto 69.9 % (50-75); Platelet Count 231 X10^3/uL (150-400); Red Blood Cell Count 3.94 X10^6/uL (4.0-5.2); Red Cell Distribution Width 14.7 % (11.6-14.8); White Blood Cell Count 5.7 X10^3/uL (4.5-11.0)
[2021-10-23 15:08] LABS: Alanine Aminotransferase 23 IU/L (<35); Albumin 4.6 g/dL (3.5-5.0); Albumin Globulin Ratio 1.8 (1.0-2.8); Alkaline Phosphatase 65 U/L (38-126); Aspartate Aminotransferase 27 IU/L (14-36); BUN Creatinine Ratio 27.8 (6-22); Bilirubin Total 0.2 mg/dL (0.2-1.3); Blood Urea Nitrogen 25 mg/dL (7-17); Calcium 9.6 mg/dL (8.4-10.2); Carbon Dioxide 27 mmol/L (22-32); Chloride 103 mmol/L (98-107); Estimated Glomerular Filt Rate > 60.0 mL/min (>60); Globulin 2.5 g/dL (1.7-4.1); Glucose 104 mg/dL (80-110); Potassium 4.3 mmol/L (3.4-5.1); Sodium 139 mmol/L (137-145); Total Protein 7.1 g/dL (6.3-8.2)
[2021-10-23 15:13] LABS: HEMOLYSIS < 15 (0-50); Iron 96 ug/dL (37-170)
[2021-10-23 15:23] LABS: Percent Iron Saturation 26 % (15-50); Total Iron Binding Capacity 364 ug/dL (265-497); Transferrin 284 mg/dL (206-381)
[2021-10-23 15:28] LABS: Free T4, Direct Thyroxine 1.39 ng/dL (0.78-2.19)
[2021-10-23 15:32] LABS: Vitamin D 25 Hydroxy (D3) 47.9 ng/mL (30.0-100.0)
[2021-10-23 15:42] LABS: Ferritin 61 ng/mL (11-264)
[2021-10-23 15:43] LABS: Thyroid Stimulating Hormone 0.028 uIU/mL (0.47-4.68)
[2021-10-23 16:15] LABS: Folate > 20.0 ng/mL (2.76-20.0); HEMOLYSIS < 15 (0-50); Vitamin B12 Reflex MMA if <400 950 pg/mL (239-931)
== END ==
PROVIDERS: PCP Nurse Practitioner Family; Referring Provider Nurse Practitioner Family; Visit Provider Nurse Practitioner Family
DX: D64.9 Anemia, unspecified (principal); I10 Essential (primary) hypertension; E03.9 Hypothyroidism, unspecified; M62.838 Other muscle spasm; Z00.00 Encounter for general adult medical examination without abnormal findings
CPT/HCPCS: 36415; 80053; 82306; 82607; 82728; 82746; 83540; 83550; 83735; 84439; 84443; 85025

== ENCOUNTER → 2021-10-29 16:26 | Outpatient (CLI) | payer OTHER, SELFPAY ==
[2021-07-16 19:00] VITALS: BMI 23.8
--- NOTE | 2021-10-29 | DI.MG.S_ITS ---
BILATERAL DIGITAL SCREENING MAMMOGRAM 3D/2D WITH CAD WITH AUGMENTATION: 10/29/2021 CLINICAL: Patient presents for routine screening. S/P bilateral augmentation. Comparison is made to exams dated: 09/18/2020 mammogram, 03/25/2020 mammogram, 03/01/2020 mammogram, and 12/06/2018 mammogram - [facility]. The tissue of both breasts is heterogeneously dense. This may lower the sensitivity of mammography. Current study was also evaluated with a Computer Aided Detection (CAD) system. No significant masses, calcifications, or other findings are seen in either breast. There has been no significant interval change. IMPRESSION: NEGATIVE There is no mammographic evidence of malignancy. A 1 year screening mammogram is recommended. This exam was interpreted at Station ID: [id number]. NOTE: For mammograms, a report in lay terms will be sent to the patient. Approximately 15% of breast malignancies will not be visualized mammographically. In the management of a palpable breast mass, a negative mammogram must not discourage biopsy of a clinically suspicious lesion. Electronically Signed By: Jorge nolasco/bita:10/30/2021 08:07:45 letter sent: Normal Exam ACR BI-RADS Category 1: Negative [id number]
== END ==
PROVIDERS: PCP Nurse Practitioner Family; Referring Provider Nurse Practitioner Family; Visit Provider Nurse Practitioner Family
DX: Z12.31 Encounter for screening mammogram for malignant neoplasm of breast (principal)
CPT/HCPCS: 77063; 77067

== ENCOUNTER → 2021-12-08 11:56 | Outpatient (CLI) | payer OTHER, SELFPAY ==
[2021-07-16 19:00] VITALS: BMI 23.8
[2021-12-08 15:21] LABS: Free T4, Direct Thyroxine 1.44 ng/dL (0.78-2.19)
[2021-12-08 15:35] LABS: Thyroid Stimulating Hormone 1.62 uIU/mL (0.47-4.68)
== END ==
PROVIDERS: PCP Nurse Practitioner Family; Referring Provider Nurse Practitioner Family; Visit Provider Nurse Practitioner Family
DX: E03.9 Hypothyroidism, unspecified (principal)
CPT/HCPCS: 36415; 84439; 84443

== ENCOUNTER → 2021-12-11 08:55 | Outpatient (CLI) | payer OTHER, SELFPAY ==
[2021-07-16 19:00] VITALS: BMI 23.8
[2021-12-11 10:26] LABS: Add Manual Diff / Slide Review NO; Basophils Absolute Auto 0 /uL (0-100); Basophils Percent Auto 0.6 % (0-2); Eosinophils Absolute Auto 200 /uL (0-450); Eosinophils Percent Auto 5.2 % (2-4); Hematocrit 33.5 % (36-46); Hemoglobin 11.1 g/dL (12.0-16.0); Lymphocytes Absolute Auto 1100 /uL (1100-4500); Lymphocytes Percent Auto 22.5 % (25-40); Mean Corpuscular HGB Conc 33.3 % (30-36); Mean Corpuscular Hemoglobin 29.9 PG (26-34); Mean Corpuscular Volume 89.8 fL (80-100); Monocytes Absolute Auto 400 /uL (0-900); Monocytes Percent Auto 9.1 % (3-14); Neutrophils Absolute Auto 3000 /uL (1500-7000); Neutrophils Percent Auto 62.6 % (50-75); Platelet Count 207 X10^3/uL (150-400); Red Blood Cell Count 3.73 X10^6/uL (4.0-5.2); Red Cell Distribution Width 13.9 % (11.6-14.8); White Blood Cell Count 4.7 X10^3/uL (4.5-11.0)
[2021-12-11 10:40] LABS: BUN Creatinine Ratio 18.7 (6-22); Blood Urea Nitrogen 14 mg/dL (7-17); Calcium 9.1 mg/dL (8.4-10.2); Carbon Dioxide 32 mmol/L (22-32); Chloride 101 mmol/L (98-107); Cholesterol 133 mg/dL (140-199); Estimated Glomerular Filt Rate > 60.0 mL/min (>60); Glucose 100 mg/dL (80-110); HDL Cholesterol 59 mg/dL (40-60); HEMOLYSIS < 15 (0-50); LDL Cholesterol Calculated 63 mg/dL (<100); Potassium 4.3 mmol/L (3.4-5.1); Sodium 135 mmol/L (137-145); Triglycerides 54 mg/dL (35-150)
== END ==
PROVIDERS: PCP Nurse Practitioner Family; Referring Provider Internal Medicine Cardiovascular Disease; Visit Provider Internal Medicine Cardiovascular Disease
DX: I10 Essential (primary) hypertension (principal)
CPT/HCPCS: 36415; 80048; 80061; 85025

== ENCOUNTER → 2022-01-23 13:57 | Outpatient (CLI) | payer OTHER, SELFPAY ==
[2021-07-16 19:00] VITALS: BMI 23.8
[2022-01-23 15:16] LABS: Influenza A - CEPHEID Flu A NEGATIVE (NEGATIVE); Influenza B - CEPHEID Flu B NEGATIVE (NEGATIVE)
[2022-01-23 15:29] LABS: COVID-19 CEPHEID PCR (VTM/NP) Negative (Negative)
== END ==
PROVIDERS: PCP Nurse Practitioner Family; Visit Provider Nurse Practitioner Family
DX: J02.9 Acute pharyngitis, unspecified (principal); R51.9 Headache, unspecified; Z20.822 Contact with and (suspected) exposure to COVID-19
CPT/HCPCS: 0240U; 87070

== ENCOUNTER → 2022-02-11 11:19 | Outpatient (CLI) | payer OTHER, SELFPAY ==
[2021-07-16 19:00] VITALS: BMI 23.8
[2022-02-11 13:00] LABS: COVID19 -Nasal RAPID Negative (Negative)
== END ==
PROVIDERS: PCP Nurse Practitioner; Visit Provider Surgery
DX: Z20.822 Contact with and (suspected) exposure to COVID-19 (principal); Z01.812 Encounter for preprocedural laboratory examination
CPT/HCPCS: 87635; C9803

== ENCOUNTER 2022-02-12 08:59 | Day surgery (SDC) | payer OTHER, SELFPAY ==
[2021-07-16 19:00] VITALS: BMI 23.8
--- NOTE | 2022-02-12 | PATH_ITS ---
[facility] Accession Number: [id number] . 01 Material submitted: . PART A: stomach - FUNDUS PART B: stomach - ANTRUM PART C: esophagus, E-G Junction - GE JUNCTION . 02 Diagnosis: A. Fundus: Portions of gastric body-type mucosa with mild chronic inflammation. Negative for Helicobacter organisms by immunohistochemistry. Negative for intestinal metaplasia. Negative for dysplasia or malignancy. . B. Gastric Antrum: Portions of gastric antral mucosa with features of reactive gastropathy and mild chronic gastritis. Negative for Helicobacter organisms by immunohistochemistry. Positive for focal intestinal metaplasia. Negative for dysplasia or malignancy. . C. GE Junction: Squamocolumnar junctional mucosa with no diagnostic abnormality. Negative for intestinal metaplasia. Negative for dysplasia and malignancy. . . MRV 02/18/2022 1600 Local . 02 Electronically signed: . Nora Bailey MD, Pathologist NPI- [id number] . 01 Gross description: . Part A: FUNDUS: Received in formalin are 3 fragment(s) of luke, soft tissue measuring 0.4 x 0.2 x 0.2 cm to 0.2 x 0.1 x 0.1 cm submitted entirely in 1 cassette(s) Part B: ANTRUM: Received in formalin are 4 fragment(s) of luke, soft tissue measuring 0.4 x 0.3 x 0.1 cm to 0.1 x 0.1 x 0.1 cm submitted entirely in 1 cassette(s) Part C: GE JUNCTION: Received in formalin are 3 fragment(s) of luke, soft tissue measuring 0.5 x 0.2 x 0.2 cm to 0.2 x 0.2 x 0.1 cm submitted entirely in 1 cassette(s) /CPE 02/13/2022 0639 Local . 02 Microscopic: . A. An immunohistochemical stain is performed to evaluate for Helicobacter organisms and is negative. The control stain shows appropriate reactivity. . B. An immunohistochemical stain is performed to evaluate for Helicobacter organisms and is negative. The control stain shows appropriate reactivity. . . * This test was developed and its performance characteristics determined by [facility]. It has not been cleared or approved by the U.S. Food and Drug Administration. The FDA has determined that such clearance or approval is not necessary. This test is used for clinical purposes. It should not be regarded as investigational or for research. . 02 Pathologist provided ICD-10: D64.9, K29.70 . 02 CPT . 394836, 616633, 144291, O36745 Specimen Comment: A courtesy copy of this report has been sent to [phone] Performed at: 01 [facility] Cyt[facility] [address] [place] [address] [id number] MD Juan Luis Arellano MD Phone: [phone] Performed at: 02 [facility] [address] [place] [address] [id number] MD Susannah Hilliard MD Phone: [phone]
[2022-02-12] MEDS: LACTATED RINGERS 1,000 ML 84 ML IV (09:12)
[2022-02-12 09:22] VITALS: BP 151/78; PULSE 71; RESP 16; TEMP 36.2; O2SAT 97; BMI 24.2
--- NOTE | 2022-02-12 10:32 | P.HP_ITS ---
History of Present Illness History of Present Illness Date Patient Seen: 02/12/22 Time Patient Seen: 10:32 Chief complaint: [facility] [place]arrative: Umm is here for her EGD and colonoscopy for anemia. See office note from January for details. 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) Essential hypertension (2014) Fatigue Fractures (~2013) Hematuria Hemoptysis Hepatitis C (~2015) Herpes Infertility Intermittent chest pain (05/2021) Leg muscle spasm Measles Mumps KALIN (obstructive sleep apnea) Osteopenia (11/2014) Pulmonary nodule (07/2021) Right ankle pain Shortness of breath Skin rash (~2011) Throat discomfort Thyroid nodule (12/2020) Wears glasses Surgical History Anesthesia Breast cyst History of appendectomy History of breast implant History of knee surgery (~2013) History of surgery History of tonsillectomy Family & Social History Family History Father Cancer History of heart disease Gout Mother Hypertension Brother Prostate cancer Grandfather Cancer Grandmother No problems noted. Social History: household members spouse Tobacco & Substance use: Smoking Status Never smoker alcohol intake current alcohol intake frequency a few times a week Substance Use Type marijuana Meds Home Medications and Allergies Home Medications Medication Instructions Recorded Confirmed Type azelastine 137 mcg (0.1 %) nasal 1 spray INTRANASAL BID ml 06/04/21 02/12/22 History spray aerosol epinephrine 0.3 mg/0.3 mL 1 mg IM Q5-15M PRN #2 ea 07/16/21 01/05/22 Rx injection, auto-injector (EpiPen 2-Slim) amlodipine 5 mg tablet 10 mg PO DAILY tab 08/21/21 02/12/22 History varicella-zoster glycoE vacc-[id number] 0.5 ml IM ONCE #1 ea 08/21/21 01/05/22 Rx adj(PF) 50 mcg/0.5 mL IM susp, kit (Shingrix (PF)) aspirin 81 mg tablet,delayed 81 mg PO DAILY 12/05/21 02/12/22 History release levothyroxine 75 mcg tablet 75 mcg PO DAILY #90 tab 12/10/21 02/12/22 Rx Allergies Allergy/AdvReac Type Severity Reaction Status Date / Time Latex, Natural Rubber Allergy Intermediate swelling, Verified 02/12/22 09:13 itching, rash wasp venom Allergy Intermediate swelling Uncoded 02/12/22 09:13 Exam Vital Signs (past 8 hours): - 02/12/22 09:22 Temperature 97.2 F L Pulse Rate 71 Respiratory Rate 16 Blood Pressure 151/78 H Pulse Oximetry 97 Oxygen Delivery Method Room Air Const General: healthy appearing and well groomed Resp Effort & Inspection: normal respiratory effort GI Palpation: soft Assessment & Plan Assessment and plan (1) Anemia: Qualifiers: Anemia type: unspecified type Qualified Code(s): D64.9 - Anemia, unspecified Status: Acute Plan Plan for upper and lower endoscopy. Risks and benefits reviewed and she wishes to proceed. COVID-19 COVID-19 status: Negative Result date/Date tested (Pos, Neg/Pending): 02/11/22 Time Spent With Patient Critical Care time: I spent a total of [] minutes of critical care time on this patient's care today; this time is exclusive of procedural time.
[2022-02-12] MEDS: LIDOCAINE 4% SOLN 50 ML 20 ML TOP (10:43)
[2022-02-12] MEDS: MIDAZOLAM 5 MG/5 ML VIAL 6 MG IV (10:46)
[2022-02-12] MEDS: fentaNYL 250 MCG/5 ML INJ 175 MCG IV (10:46)
--- NOTE | 2022-02-12 11:31 | PM.OP.EC ---
Operative Date/Time/Diagnoses Date of procedure: 02/12/22 Time of procedure: 11:31 Pre-op diagnosis: Anemia Post-op diagnosis: same Procedure & Clinicians Study performed: Esophagogastroduodenoscopy and colonoscopy Same procedure as scheduled: Yes Indications: Anemia Surgeon: Sameer Oconnor Procedure Notes Procedure in detail: Procedure in detail: A timeout was performed. Bite blocked was placed. Patient was positioned in a left lateral decubitus position. Sedation was administered with Versed and fentanyl. Once the patient was sedated the endoscope was inserted through the bite block and passed through the esophagus and stomach and into the duodenum. The duodenum appeared normal. The scope was withdrawn into the stomach and the antrum was inspected. There was mild gastritis in the antrum. Random biopsies taken from the antrum. There were some small ulcers in the fundus which appeared to have been bleeding recently. Biopsies were taken from the fundus vicinity of these ulcers. The rest of the stomach was normal. The scope was straightened and withdrawn into the esophagus. There were some very sort segments of salmon-colored mucosa of the distal esophagus. Biopsies were taken from this tissue. The rest of the esophagus was normal. Findings: Small ulcers in the fundus that appeared to have been bleeding recently and short segments of salmon-colored mucosa in the distal esophagus. Next we repositioned the patient for a colonoscopy. A digital rectal exam was performed and was normal. The colonoscope was inserted and advanced to the cecum. The appendiceal orifice was identified and photographed. The scope was slowly withdrawn over greater than 6 minutes. No abnormalities were noted the other than diverticula in the sigmoid colon. The scope was retroflexed in the rectum and no abnormalities were seen. Findings: Diverticulosis in the sigmoid colon EBL: 20 mL Scope withdrawal time: 7 Sedation minutes: 43 Post-procedure Recommendations: Will call with biopsy results Disposition: PACU
[2022-02-12 11:35] VITALS: BP 98/66; PULSE 54; RESP 16; TEMP 36.4; O2SAT 98
[2022-02-12 11:43] VITALS: BP 124/50; PULSE 66; RESP 16; O2SAT 98
[2022-02-12 11:45] VITALS: BP 94/66; PULSE 74; RESP 16; O2SAT 99
[2022-02-12 12:02] VITALS: BP 98/78; PULSE 58; RESP 16; O2SAT 98
== END 2022-02-12 12:10 | disposition home or self-care (01) ==
PROVIDERS: PCP Nurse Practitioner; Referring Provider Surgery; Visit Provider Surgery
PROC: 0DJ08ZZ Inspection of Upper Intestinal Tract, Via Natural or Artificial Opening Endoscopic (ICD-10-PCS; CPT 43235; principal; 2022-02-12 10:45)
PROC: 0DJD8ZZ Inspection of Lower Intestinal Tract, Via Natural or Artificial Opening Endoscopic (ICD-10-PCS; CPT 45378; 2022-02-12 10:45)
DX: D64.9 Anemia, unspecified (principal); K57.30 Diverticulosis of large intestine without perforation or abscess without bleeding; K29.50 Unspecified chronic gastritis without bleeding; K31.9 Disease of stomach and duodenum, unspecified
CPT/HCPCS: 43239; 45378; 99152; 99153; J2250; J3010

== ENCOUNTER → 2022-03-06 16:10 | Outpatient (CLI) | payer OTHER, SELFPAY ==
[2021-07-16 19:00] VITALS: BMI 23.8
[2022-03-06 17:48] LABS: Free T4, Direct Thyroxine 1.33 ng/dL (0.78-2.19)
[2022-03-06 18:02] LABS: Thyroid Stimulating Hormone 0.071 uIU/mL (0.47-4.68)
== END ==
PROVIDERS: Nurse Practitioner Family; PCP Nurse Practitioner; Referring Provider Nurse Practitioner; Visit Provider Nurse Practitioner
DX: E03.9 Hypothyroidism, unspecified (principal)
CPT/HCPCS: 36415; 84439; 84443

== ENCOUNTER → 2022-06-05 10:33 | Outpatient (CLI) | payer OTHER, SELFPAY ==
[2021-07-16 19:00] VITALS: BMI 23.8
[2022-06-05 12:34] LABS: Thyroid Stimulating Hormone 1.82 uIU/mL (0.47-4.68)
== END ==
PROVIDERS: PCP Nurse Practitioner; Referring Provider Nurse Practitioner; Visit Provider Nurse Practitioner
DX: E03.9 Hypothyroidism, unspecified (principal)
CPT/HCPCS: 36415; 84443

== ENCOUNTER → 2022-06-16 09:51 | Outpatient (CLI) | payer OTHER, SELFPAY ==
[2021-07-16 19:00] VITALS: BMI 23.8
[2022-06-16 10:41] LABS: Add Manual Diff / Slide Review NO; Basophils Absolute Auto 0 /uL (0-100); Basophils Percent Auto 0.7 % (0-2); Eosinophils Absolute Auto 100 /uL (0-450); Hematocrit 33.4 % (36-46); Hemoglobin 11.6 g/dL (12.0-16.0); Lymphocytes Absolute Auto 900 /uL (1100-4500); Lymphocytes Percent Auto 18.9 % (25-40); Mean Corpuscular HGB Conc 34.8 % (30-36); Mean Corpuscular Hemoglobin 31.2 PG (26-34); Mean Corpuscular Volume 89.7 fL (80-100); Monocytes Absolute Auto 400 /uL (0-900); Monocytes Percent Auto 8.5 % (3-14); Neutrophils Absolute Auto 3200 /uL (1500-7000); Neutrophils Percent Auto 68.9 % (50-75); Platelet Count 216 X10^3/uL (150-400); Red Blood Cell Count 3.72 X10^6/uL (4.0-5.2); Red Cell Distribution Width 13.9 % (11.6-14.8); White Blood Cell Count 4.6 X10^3/uL (4.5-11.0)
[2022-06-16 11:03] LABS: BUN Creatinine Ratio 21.1 (6-22); Blood Urea Nitrogen 16 mg/dL (7-17); Carbon Dioxide 27 mmol/L (22-32); Chloride 98 mmol/L (98-107); Cholesterol 143 mg/dL (140-199); Estimated Glomerular Filt Rate > 60 mL/min (>60); Glucose 101 mg/dL (80-110); HDL Cholesterol 70 mg/dL (40-60); HEMOLYSIS < 15 (0-50); LDL Cholesterol Calculated 65 mg/dL (<100); Potassium 4.5 mmol/L (3.4-5.1); Sodium 134 mmol/L (137-145); Triglycerides 39 mg/dL (35-150)
== END ==
PROVIDERS: PCP Nurse Practitioner; Referring Provider Internal Medicine Cardiovascular Disease; Visit Provider Internal Medicine Cardiovascular Disease
DX: I10 Essential (primary) hypertension (principal); R31.21 Asymptomatic microscopic hematuria
CPT/HCPCS: 36415; 80048; 80061; 85025; 99213

== ENCOUNTER → 2022-07-07 10:17 | Outpatient (CLI) | payer OTHER, SELFPAY ==
[2021-07-16 19:00] VITALS: BMI 23.8
[2022-07-07 11:52] LABS: Hep C Virus Ab w/Reflex Quant REACTIVE s/c (NEGATIVE)
== END ==
PROVIDERS: PCP Nurse Practitioner; Referring Provider Nurse Practitioner; Visit Provider Nurse Practitioner
DX: Z86.19 Personal history of other infectious and parasitic diseases (principal)
CPT/HCPCS: 36415; 86803; 87522

== ENCOUNTER → 2022-08-19 11:23 | Outpatient (CLI) | payer OTHER, SELFPAY ==
[2021-07-16 19:00] VITALS: BMI 23.8
[2022-08-19 13:05] LABS: COVID19 -Nasal RAPID Negative (Negative)
== END ==
PROVIDERS: PCP Nurse Practitioner; Visit Provider Surgery
DX: Z20.822 Contact with and (suspected) exposure to COVID-19 (principal); Z01.812 Encounter for preprocedural laboratory examination
CPT/HCPCS: 87635; C9803

== ENCOUNTER 2022-08-20 10:31 | Day surgery (SDC) | payer OTHER, SELFPAY ==
[2021-07-16 19:00] VITALS: BMI 23.8
[2022-08-20] VITALS (7 sets, daily range): BP systolic 131–158; BP diastolic 58–70; PULSE 52–65; RESP 10–19; TEMP 36.3; O2SAT 96–100; BMI 22.6
--- NOTE | 2022-08-20 | PATH_ITS ---
[facility] Accession Number: [id number] . 01 Material submitted: . gastrointestinal site - ANTRUM . 01 Diagnosis: Antrum, Biopsy: Gastric antral mucosa with mild chronic inflammation. Negative for Helicobacter organisms by immunohistochemistry. Negative for intestinal metaplasia. Negative for dysplasia or malignancy. MRV 08/26/2022 1723 Local . 01 Electronically signed: . Clarke Verma MD, PhD, Pathologist NPI- [id number] . 01 Gross description: . ANTRUM: Received in formalin is 1 fragment(s) of luke, soft tissue measuring 0.4 x 0.3 x 0.2 cm submitted entirely in 1 cassette(s) /CECILY 08/21/2022 1942 Local . 01 Microscopic: . An immunohistochemical stain was performed to evaluate for Helicobacter organisms and is negative. The control stain showed appropriate reactivity. . * This test was developed and its performance characteristics determined by [facility]. It has not been cleared or approved by the U.S. Food and Drug Administration. The FDA has determined that such clearance or approval is not necessary. This test is used for clinical purposes. It should not be regarded as investigational or for research. . 01 Pathologist provided ICD-10: K29.70 . 01 CPT . 562547, G69139 Specimen Comment: A courtesy copy of this report has been sent to [phone] Performed at: 01 [facility] [address] [place] [address] [address], [place], [place] [id number] MD Juan Luis Arellano MD Phone: [phone]
[2022-08-20] MEDS: LACTATED RINGERS 1,000 ML 200 ML IV (10:47)
--- NOTE | 2022-08-20 12:30 | PM.HP.1 ---
History of Present Illness History of Present Illness Date Patient Seen: 08/20/22 Time Patient Seen: 12:30 Chief complaint: EGD Narrative: Umm is a 76-year-old woman who has a history of peptic ulcers about 6 months ago. She had an EGD at that time. She was on omeprazole for 3 months. She feels like all of her prior symptoms have resolved. 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) Essential hypertension (2014) Fatigue Fractures (~2013) Hematuria Hemoptysis Hepatitis C (~2015) Herpes History of hepatitis C virus infection Infertility Intermittent chest pain (05/2021) Leg muscle spasm Measles Mumps KALIN (obstructive sleep apnea) Osteopenia (11/2014) Pulmonary nodule (07/2021) Right ankle pain Shortness of breath Skin rash (~2011) Throat discomfort Thyroid nodule (12/2020) Wears glasses Surgical History Anesthesia Breast cyst History of appendectomy History of breast implant History of knee surgery (~2013) History of surgery History of tonsillectomy Family & Social History Family History Father Cancer History of heart disease Gout Mother Hypertension Brother Prostate cancer Grandfather Cancer Grandmother No problems noted. Social History: household members spouse Tobacco & Substance use: Smoking Status Never smoker alcohol intake current alcohol intake frequency a few times a week Substance Use Type marijuana Meds Home Medications and Allergies Home Medications Medication Instructions Recorded Confirmed Type levothyroxine 50 mcg tablet 50 mcg PO DAILY #90 tabs 03/10/22 08/20/22 Rx amlodipine 5 mg tablet 5 mg PO DAILY #90 tabs 04/13/22 08/20/22 Rx azelastine 137 mcg (0.1 %) nasal 1 spray intranasal BID #30 mL 04/13/22 08/20/22 Rx spray aerosol losartan 50 mg tablet 50 mg PO DAILY #90 tabs 04/13/22 08/20/22 Rx mometasone 0.1 % topical cream 1 applic topical DAILY PRN itching 04/13/22 08/20/22 Rx #15 grams Allergies Allergy/AdvReac Type Severity Reaction Status Date / Time cocamidopropyl betaine Allergy Intermediate Verified 08/20/22 10:54 Latex, Natural Rubber Allergy Intermediate swelling, Verified 08/20/22 10:54 itching, rash polyethylene glycol AdvReac Intermediate ITCHING Verified 08/20/22 10:54 wasp venom Allergy Intermediate swelling Uncoded 07/29/22 13:54 amidoamine AdvReac Mild ITCHING Uncoded 07/29/22 13:54 Exam Vital Signs (past 8 hours): - 08/20/22 11:04 Temperature 97.3 F L Pulse Rate 64 Respiratory Rate 14 Blood Pressure 151/62 H Pulse Oximetry 100 Oxygen Delivery Method Room Air Oxygen Delivery Method Room Air Const General: No acute distress Assessment & Plan Assessment and plan (1) History of peptic ulcer: Status: Acute Plan 76-year-old woman with a history of peptic ulcers. Repeat EGD to ensure resolution. She understands the risks and benefits and wishes to proceed. Time Spent With Patient Critical Care time: I spent a total of [] minutes of critical care time on this patient's care today; this time is exclusive of procedural time.
--- NOTE | 2022-08-20 12:49 | PM.OP.EGD ---
Operative Date/Time/Diagnoses Date of procedure: 08/20/22 Time of procedure: 12:49 Pre-op diagnosis: History of peptic ulcers Post-op diagnosis: same Procedure & Clinicians Study performed: Esophagogastroduodenoscopy Same procedure as scheduled: Yes Surgeon: Sameer Oconnor Procedure Notes Procedure in detail: Surgeon: Sameer Oconnor MD Anesthesia: By Dr. Sahu A timeout was performed. A bite blocked was placed. The patient was positioned in the left lateral decubitus position. Anesthesia was administered. The endoscope was inserted through the bite block and passed through the esophagus and stomach and into the duodenum. The duodenal mucosa appeared normal. The scope was withdrawn into the duodenal bulb and no other abnormalities were noted. The scope was withdrawn into the stomach. There were no ulcers. There was minimal inflammation of the antral mucosa. Random biopsies were taken from the antrum. The rest of the stomach was normal. The scope was retroflexed and no hiatal hernia was seen. The scope was withdrawn into the esophagus and the Z-line was inspected and no abnormality was seen. The remainder of the esophagus was normal. The scope was withdrawn. The patient was awakened and brought to recovery. Sedation time: 5 minutes Findings: Normal EGD Post-procedure Recommendations: Will call with biopsy results Disposition: PACU
== END 2022-08-20 13:20 | disposition home or self-care (01) ==
PROVIDERS: PCP Nurse Practitioner; Referring Provider Surgery; Visit Provider Surgery
PROC: 0DJ08ZZ Inspection of Upper Intestinal Tract, Via Natural or Artificial Opening Endoscopic (ICD-10-PCS; CPT 43235; principal; 2022-08-20 11:45)
DX: Z87.11 Personal history of peptic ulcer disease (principal); D64.9 Anemia, unspecified; Z09 Encounter for follow-up examination after completed treatment for conditions other than malignant neoplasm; K29.50 Unspecified chronic gastritis without bleeding
CPT/HCPCS: 43239; J2704; J3010

== ENCOUNTER → 2022-10-13 11:02 | Outpatient (CLI) | payer OTHER, SELFPAY ==
[2021-07-16 19:00] VITALS: BMI 23.8
[2022-10-13 12:46] LABS: Thyroid Stimulating Hormone 4.46 uIU/mL (0.47-4.68)
== END ==
PROVIDERS: PCP Nurse Practitioner; Referring Provider Nurse Practitioner; Visit Provider Nurse Practitioner
DX: E03.9 Hypothyroidism, unspecified (principal)
CPT/HCPCS: 36415; 84443

== ENCOUNTER → 2022-10-13 12:17 | Outpatient (CLI) | payer OTHER, SELFPAY ==
[2021-07-16 19:00] VITALS: BMI 23.8
--- NOTE | 2022-10-13 12:19 | DI.RAD.S_ITS ---
PROCEDURE: XR KNEE LT 3V INDICATIONS: PAIN TECHNIQUE: 3 views of the knee were acquired. COMPARISON: None. FINDINGS: Bones: There is prior internal fixation of patella with [address] No acute fracture or dislocation. Moderate tricompartmental osteoarthritis is seen.. No suspicious bony lesions. Soft tissues: There is moderate suprapatellar joint effusion. No suspicious soft tissue calcifications. IMPRESSION: Prior internal fixation of patella. No gross hardware loosening or failure. No acute fracture or dislocation. Moderate tricompartmental osteoarthritis. Moderate suprapatellar joint effusion. Dictated by: Pablo Dominguez M.D. on 10/13/2022 at 14:47 Approved by: Pablo Dominguez M.D. on 10/13/2022 at 14:48
== END ==
PROVIDERS: PCP Nurse Practitioner; Referring Provider Nurse Practitioner; Visit Provider Nurse Practitioner
DX: M17.12 Unilateral primary osteoarthritis, left knee (principal); M25.462 Effusion, left knee; M25.562 Pain in left knee; E03.9 Hypothyroidism, unspecified; Z87.81 Personal history of (healed) traumatic fracture
CPT/HCPCS: 36415; 73562; 84443

== ENCOUNTER → 2022-10-30 10:46 | Outpatient (CLI) | payer OTHER, SELFPAY ==
[2021-07-16 19:00] VITALS: BMI 23.8
--- NOTE | 2022-10-30 | DI.MG.S_ITS ---
BILATERAL DIGITAL SCREENING MAMMOGRAM 3D/2D WITH CAD WITH AUGMENTATION: 10/30/2022 CLINICAL: Routine screening - bilateral augmentation. Comparison is made to exams dated: 10/29/2021 mammogram, 03/01/2020 mammogram, and 12/06/2018 mammogram - [facility]. Both breasts are heterogeneously dense, which may obscure small masses (category c / 51-75% glandular tissue). Current study was also evaluated with a Computer Aided Detection (CAD) system. Bilateral breast implants are present. No significant masses, calcifications, or other findings are seen in either breast. There has been no significant interval change. IMPRESSION: BENIGN There is no mammographic evidence of malignancy. A 1 year screening mammogram is recommended. Based on the Tyrer Cuzick model (a risk assessment model) the patient's lifetime risk is 4.6% and her 10 year risk is 0.0%. According to the ACR, ACS, and NCCN guidelines, an annual breast MRI exam along with mammogram is recommended if the patient's lifetime risk is 20% or greater. This exam was interpreted at Station ID: [id number]. NOTE: For mammograms, a report in lay terms will be sent to the patient. Approximately 15% of breast malignancies will not be visualized mammographically. In the management of a palpable breast mass, a negative mammogram must not discourage biopsy of a clinically suspicious lesion. Electronically Signed By: Carlos liu/bita:10/30/2022 13:45:02 letter sent: Normal Exam ACR BI-RADS Category 2: Benign Finding(s) 3342F
== END ==
PROVIDERS: PCP Nurse Practitioner; Referring Provider Nurse Practitioner; Visit Provider Nurse Practitioner
DX: Z12.31 Encounter for screening mammogram for malignant neoplasm of breast (principal); Z98.82 Breast implant status
CPT/HCPCS: 77063; 77067

== ENCOUNTER → 2022-11-23 08:35 | Outpatient (CLI) | payer OTHER, SELFPAY ==
[2021-07-16 19:00] VITALS: BMI 23.8
[2022-11-23 10:37] LABS: HEMOLYSIS < 15 (0-50); Iron 48 ug/dL (37-170)
[2022-11-23 10:53] LABS: Percent Iron Saturation 13 % (15-50); Total Iron Binding Capacity 384 ug/dL (265-497); Transferrin 263 mg/dL (206-381)
[2022-11-23 11:09] LABS: Ferritin 42 ng/mL (11-264)
[2022-11-24 12:22] LABS: C-Reactive Protein Quant < 0.5 mg/dL (<1.0)
== END ==
PROVIDERS: PCP Nurse Practitioner; Referring Provider Internal Medicine Sleep Medicine; Visit Provider Internal Medicine Sleep Medicine
DX: E83.10 Disorder of iron metabolism, unspecified (principal); G25.81 Restless legs syndrome
CPT/HCPCS: 36415; 82728; 83540; 83550; 86140

== ENCOUNTER → 2023-03-15 08:59 | Outpatient (CLI) | payer OTHER, SELFPAY ==
[2021-07-16 19:00] VITALS: BMI 23.8
[2023-03-15 11:14] LABS: HEMOLYSIS 36 (0-50); Iron 120 ug/dL (37-170)
[2023-03-15 11:24] LABS: Percent Iron Saturation 33 % (15-50); Total Iron Binding Capacity 363 ug/dL (265-497); Transferrin 265 mg/dL (206-381)
[2023-03-15 11:40] LABS: Ferritin 119 ng/mL (11-264)
== END ==
PROVIDERS: PCP Nurse Practitioner; Referring Provider Nurse Practitioner; Visit Provider Nurse Practitioner
DX: E03.9 Hypothyroidism, unspecified (principal); E83.10 Disorder of iron metabolism, unspecified; G25.81 Restless legs syndrome; R25.8 Other abnormal involuntary movements; Z79.899 Other long term (current) drug therapy
CPT/HCPCS: 36415; 82728; 83540; 83550; 84443

== ENCOUNTER → 2023-06-25 10:20 | Outpatient (CLI) | payer OTHER, SELFPAY ==
[2021-07-16 19:00] VITALS: BMI 23.8
[2023-06-25 11:34] LABS: Add Manual Diff / Slide Review NO; Basophils Absolute Auto 100 /uL (0-100); Basophils Percent Auto 1.2 % (0-2); Eosinophils Absolute Auto 100 /uL (0-450); Eosinophils Percent Auto 2.5 % (2-4); Hematocrit 33.1 % (36-46); Hemoglobin 11.4 g/dL (12.0-16.0); Lymphocytes Absolute Auto 900 /uL (1100-4500); Lymphocytes Percent Auto 20.6 % (25-40); Mean Corpuscular HGB Conc 34.4 % (30-36); Mean Corpuscular Hemoglobin 32.3 PG (26-34); Mean Corpuscular Volume 93.7 fL (80-100); Monocytes Absolute Auto 400 /uL (0-900); Monocytes Percent Auto 8.4 % (3-14); Neutrophils Absolute Auto 2900 /uL (1500-7000); Neutrophils Percent Auto 67.3 % (50-75); Platelet Count 231 X10^3/uL (150-400); Red Blood Cell Count 3.54 X10^6/uL (4.0-5.2); Red Cell Distribution Width 13.5 % (11.6-14.8); White Blood Cell Count 4.3 X10^3/uL (4.5-11.0)
[2023-06-25 11:50] LABS: Alanine Aminotransferase 26 IU/L (<35); Albumin 4.4 g/dL (3.5-5.0); Albumin Globulin Ratio 1.5 (1.0-2.8); Alkaline Phosphatase 48 U/L (38-126); Aspartate Aminotransferase 27 IU/L (14-36); BUN Creatinine Ratio 27.8 (6-22); Bilirubin Total 0.5 mg/dL (0.2-1.3); Blood Urea Nitrogen 20 mg/dL (7-17); Calcium 9.2 mg/dL (8.4-10.2); Carbon Dioxide 25 mmol/L (22-32); Chloride 101 mmol/L (98-107); Cholesterol 139 mg/dL (140-199); Estimated Glomerular Filt Rate > 60 mL/min (>60); Globulin 2.9 g/dL (1.7-4.1); Glucose 107 mg/dL (80-110); HDL Cholesterol 67 mg/dL (40-60); HEMOLYSIS 16 (0-50); LDL Cholesterol Calculated 60 mg/dL (<100); Potassium 4.4 mmol/L (3.4-5.1); Sodium 133 mmol/L (137-145); Total Protein 7.3 g/dL (6.3-8.2); Triglycerides 60 mg/dL (35-150)
[2023-06-25 11:54] LABS: HEMOLYSIS < 15 (0-50); Iron 133 ug/dL (37-170)
[2023-06-25 12:05] LABS: Percent Iron Saturation 38 % (15-50); Total Iron Binding Capacity 346 ug/dL (265-497); Transferrin 242 mg/dL (206-381)
[2023-06-25 12:18] LABS: Thyroid Stimulating Hormone 2.26 uIU/mL (0.47-4.68)
[2023-06-25 15:03] LABS: Creatinine Urine Random 56.3 mg/dL
[2023-06-25 15:14] LABS: Microalbumin Urine Random < 0.6 mg/dL (0-1.6)
== END ==
PROVIDERS: PCP Nurse Practitioner; Referring Provider Internal Medicine Cardiovascular Disease; Visit Provider Internal Medicine Cardiovascular Disease
DX: I10 Essential (primary) hypertension; D64.9 Anemia, unspecified; I25.2 Old myocardial infarction; F41.9 Anxiety disorder, unspecified; R53.83 Other fatigue; R06.02 Shortness of breath; E03.9 Hypothyroidism, unspecified; Z79.899 Other long term (current) drug therapy
CPT/HCPCS: 36415; 80053; 80061; 82043; 82570; 83540; 83550; 84443; 85025

== ENCOUNTER → 2023-06-28 13:51 | Outpatient (CLI) | payer OTHER, SELFPAY ==
[2021-07-16 19:00] VITALS: BMI 23.8
[2023-06-28 14:13] LABS: Reticulocyte Count, Percent 0.8 % (1.1-2.6)
== END ==
PROVIDERS: PCP Nurse Practitioner; Visit Provider Family Medicine
DX: D64.9 Anemia, unspecified (principal)
CPT/HCPCS: 85045

== ENCOUNTER → 2023-07-03 12:28 | Outpatient (CLI) | payer OTHER, SELFPAY ==
[2021-07-16 19:00] VITALS: BMI 23.8
== END ==
PROVIDERS: PCP Nurse Practitioner; Visit Provider Nurse Practitioner Family
DX: R30.0 Dysuria (principal)
CPT/HCPCS: 87086

== ENCOUNTER → 2023-07-12 11:16 | Outpatient (CLI) | payer OTHER, SELFPAY ==
[2021-07-16 19:00] VITALS: BMI 23.8
[2023-07-12 12:23] LABS: Hematocrit 36.7 % (36-46); Hemoglobin 12.5 g/dL (12.0-16.0); Mean Corpuscular HGB Conc 34.1 % (30-36); Mean Corpuscular Hemoglobin 31.6 PG (26-34); Mean Corpuscular Volume 92.6 fL (80-100); Platelet Count 249 X10^3/uL (150-400); Red Blood Cell Count 3.96 X10^6/uL (4.0-5.2); Red Cell Distribution Width 13.4 % (11.6-14.8); White Blood Cell Count 6.2 X10^3/uL (4.5-11.0)
[2023-07-12 12:32] LABS: HEMOLYSIS < 15 (0-50); Iron 137 ug/dL (37-170)
[2023-07-12 12:36] LABS: Lactate Dehydrogenase 133 U/L (120-246)
[2023-07-12 12:42] LABS: Percent Iron Saturation 37 % (15-50); Total Iron Binding Capacity 370 ug/dL (265-497); Transferrin 267 mg/dL (206-381)
[2023-07-12 13:08] LABS: Ferritin 154 ng/mL (11-264)
[2023-07-12 13:23] LABS: Microcytosis 1+; Neutrophils Absolute Manual 4526 /uL (3000-5900); Total Cells Counted 100
[2023-07-13 05:16] LABS: Haptoglobin 49 mg/dL (42-346)
[2023-07-13 18:27] LABS: Erythropoietin 19.7 mIU/mL (2.6-18.5)
== END ==
PROVIDERS: Family Medicine; PCP Nurse Practitioner; Referring Provider Nurse Practitioner; Visit Provider Nurse Practitioner
DX: E83.10 Disorder of iron metabolism, unspecified (principal); G25.81 Restless legs syndrome; D64.9 Anemia, unspecified
CPT/HCPCS: 36415; 82668; 82728; 83010; 83540; 83550; 83615; 85025; 86880

== ENCOUNTER → 2023-07-13 13:38 | Outpatient (CLI) | payer OTHER, SELFPAY ==
[2021-07-16 19:00] VITALS: BMI 23.8
--- NOTE | 2023-07-13 13:39 | DI.ECHO.S_ITS ---
[place] [facility] +---------+ : : [address] : : : : [id number] : : : : Phone: [phone]+ Echocardiogram Report + + :Name: ELIU HADDAD Study Date: 07/13/2023 Height: 66.5 in: :[facility] ReadingLocation: Weight: 145 lb : : Gender: Female BSA: 1.8 m2 : :: 1945 Age: 77 yrs BP: 144/75 mmHg: :Reason For Study: HYPERTENSION : :Ordering Physician: SIVA, : :NAZARIO Performed By: Latasha Gomez : :Referring: NAZARIO PANIAGUA : + + Interpretation Summary 1) Normal left ventricular thickness, size, wall motion, and systolic function (EF 55-60%). 2) Normal right ventricular size and function. 3) There is mild aortic regurgitation. 4) Compared to the Echo done 07/17/2021, no significant change. Procedure: A two-dimensional transthoracic echocardiogram with color flow and Doppler was performed. The study quality was technically adequate. Comparison is made with the echocardiogram of 07/17/2021. The patient was in sinus bradycardia with heart rates between 53-61 bpm during the exam. Left Ventricle: The left ventricle is normal in size and wall thickness. The ejection fraction is estimated to be 55-60%. Left ventricular systolic function appears normal without focal wall motion abnormalities. Diastolic parameters suggest probable normal left ventricular diastolic function and normal filling pressures. Right Ventricle: The right ventricle is normal in size and function. Atria: The left atrial size is normal. Right atrial size is normal. There is no Doppler evidence for an interatrial shunt. Mitral Valve: The mitral valve is normal in structure and function. There is trace mitral regurgitation. Aortic Valve: The aortic valve is trileaflet. The aortic valve opens well. There is no aortic valve stenosis. There is mild aortic regurgitation. Tricuspid Valve: The tricuspid valve is normal in structure and function. There is trace tricuspid regurgitation. Pulmonary artery pressures cannot be estimated because of the lack of a measurable TR jet velocity. Pulmonic Valve: The pulmonic valve leaflets are thin and pliable; valve motion is normal. There is no pulmonic valvular regurgitation. Great Vessels: The aortic root is normal size. The dimensions of the ascending aorta are normal. The IVC is of normal diameter and collapses greater than 50% with a sniff. This suggests a low right atrial pressure of 3 mm Hg. Pericardium/ Pleura There is no pericardial effusion. There is no pleural effusion. MMode/2D Measurements & Calculations LVIDd: 4.5 cm LVOT diam: 1.9 cm LVIDs: 3.0 cm Ao root diam: 3.0 cm FS: 33.0 % asc Aorta Diam: 3.2 cm IVSd: 0.67 cm Ao Arch Diam (Prox Trans): 2.7 cm LVPWd: 0.68 cm LV hansen. diameter/BSA (cm/m^2): 2.6 LV sys. diameter/BSA (cm/m^2): 1.7 LA A2 area: 18.9 cm2 RA long axis: 5.2 cm LA A4 area: 14.9 cm2 RA area: 15.9 cm2 LA length (vol): 4.9 cm RA vol: 41.4 ml LA vol: 48.9 ml RA : 23.6 ml/m2 LA vol index: 27.8 ml/m2 IVC diam: 1.9 cm RVD1 (basal): 3.2 cm RVD2 (mid): 2.7 cm TAPSE: 2.3 cm Doppler Measurements & Calculations Ao V2 max: 157.3 cm/sec LVOT Max Payam: 117.8 cm/sec Ao V2 mean: 114.1 cm/sec LV V1 max P.5 mmHg Ao max P.9 mmHg LV V1 VTI: 25.2 cm Ao mean P.8 mmHg ALEX(I,D): 2.0 cm2 Ao V2 VTI: 37.3 cm ALEX(V,D): 2.2 cm2 sev ratio: 0.67 ALEX indexed to BSA (cm^2/m^2): 1.1 MV E max payam: 80.7 cm/sec PA V2 max: 94.4 cm/sec MV A max payam: 71.3 cm/sec PA V2 mean: 66.8 cm/sec MV E/A: 1.1 PA mean P.0 mmHg Med Peak E' Payam: 7.3 cm/sec PA pr(Accel): 34.5 mmHg E/E' med: 11.0 Lat Peak E' Payam: 7.9 cm/sec E/E' lat: 10.3 E/e' average: 10.6 MV dec time: 0.19 sec SV(LVOT): 74.9 ml Reading Physician:04:15 PM
--- NOTE | 2023-07-13 13:39 | DI.US.S_ITS ---
PROCEDURE: US THYROID INDICATIONS: NODULE TECHNIQUE: Real-time scanning was performed of the thyroid gland, with image documentation. COMPARISON: [facility], US, US THYROID, 12/10/2020, 11:50. FINDINGS: Right: Thyroid lobe measures 3.8 x 1.0 x 1.1 cm, and is homogeneous in echotexture. Left: Thyroid lobe measures 3.1 x 1.0 x 0.8 cm, and is homogenous in echotexture. Isthmus: 2 mm thick. Nodule number: 1 Location: Left lobe inferior Size: 0.7 x 0.4 x 0.4 cm. Previously 0.6 x 0.5 x 0.4 cm Composition: Solid Echogenicity: Hyperechoic Shape: wider than tall. Margins: Smooth Echogenic foci: None Total points: 3 ACR TI-RADS category: 3 IMPRESSION: Previously demonstrated small nodule at the left inferior lobe of the thyroid gland is not significantly changed in size. Per TI-RADS criteria, imaging follow-up is not necessary and the nodule does not meet criteria for FNA recommendation. ACR TI-RADS definitions and recommendations: TI-RADS 1 (benign): 0 points. FNA not needed. TI-RADS 2 (not suspicious): 2 points. FNA not needed. TI-RADS 3 (mildly suspicious): 3 points. * FNA if 2.5 cm or larger, follow up if 1.5 cm or larger (at 1, 3, and 5 years). TI-RADS 4 (moderately suspicious): 4-6 points. * FNA if 1.5 cm or larger, follow up if 1 cm or larger (at 1, 2, 3, and 5 years). TI-RADS 5 (highly suspicious): 7 points or more. * FNA if 1 cm or larger, follow up if 0.5 cm or larger (every year for 5 years). Dictated by: Jorge Juarez M.D. on 07/14/2023 at 10:36 Approved by: Jorge Juarez M.D. on 07/14/2023 at 10:46
--- NOTE | 2023-07-13 13:39 | DI.RAD.S_ITS ---
Bone Density Report Name: ELIU HADDAD Age: 77 Sex: Female Ethnicity: White Date of : 1945 Indication: osteopenia; Referring Provider: NAZARIO PANIAGUA Study: Bone densitometry was performed. Exam Date: July 13, 2023 Accession number: [id number] Bone Density: Region BMD T-score Z-score Classification AP Spine(L1-L4) 0.840 -1.9 0.6 Osteopenia Femoral Neck (Left) 0.633 -1.9 0.2 Osteopenia Total Hip (Left) 0.734 -1.7 0.2 Osteopenia Femoral Neck (Right) 0.606 -2.2 0.0 Osteopenia Total Hip (Right) 0.743 -1.6 0.3 Osteopenia Total Hip Mean 0.738 -1.7 0.3 Osteopenia World Health Organization criteria for BMD impression classify patients as: Normal (T-score at or above -1.0), Osteopenia (T-score between -1.0 and -2.5), or Osteoporosis (T-score at or below -2.5). 10-year Fracture Risk(1): Major Osteoporotic Fracture 14% Hip Fracture 4.2% Reported Risk Factors: [place] (), Neck BMD=0.606, BMI=23.4 (1) FRAX(R) Version 3.08. Fracture probability calculated for an untreated patient. Fracture probability may be lower if the patient has received treatment. Previous Exams: -- Region Exam Age BMD T-score BMD Change BMD Change Date g/cm2 vs Baseline vs Previous -- AP Spine (L1-L4) 07/13/2023 77 0.840 -1.9 -0.043 (-4.9%)# -0.034 (-3.9%)# 06/04/2021 75 0.874 -1.6 -0.009 (-1.0%) -0.009 (-1.0%) 03/03/2019 73 0.883 -1.5 0.000 (0.0%) 0.000 (0.0%) 11/27/2014 69 0.883 -1.5 Total Hip(Left) 07/13/2023 77 0.734 -1.7 0.051 (7.5%)# -0.005 (-0.7%)# 06/04/2021 75 0.739 -1.7 0.056 (8.3%)* 0.029 (4.0%)* 03/03/2019 73 0.710 -1.9 0.028 (4.1%)* 0.028 (4.1%)* 11/27/2014 69 0.683 -2.1 Total Hip(Right) 07/13/2023 77 0.743 -1.6 -0.007 (-0.9%)# -0.019 (-2.5%)# 06/04/2021 75 0.762 -1.5 0.012 (1.6%) 0.004 (0.6%) 03/03/2019 73 0.758 -1.5 0.008 (1.1%) 0.008 (1.1%) 11/27/2014 69 0.750 -1.6 -- *Denotes significance at 95% confidence level, LSC for AP Spine = 0.022 g/cm2, LSC for Total Hip = 0.027 g/cm2 # Denotes dissimilar scan types or analysis methods Impression: The patient has low bone mass, based on the Right Femoral Neck T-score. The patient has an estimated ten-year risk of hip fracture of 4.2% and an estimated ten-year risk of major fracture of 14%, based on the WHO FRAX algorithm. No significant bone loss was observed. Discussion: BONE DENSITY IS LOW AT ONE OR MORE SKELETAL SITES. THE PATIENT'S BMD AND CLINICAL RISK FACTORS CONTRIBUTE TO THIS PATIENT'S INCREASED RISK OF FRACTURE. This patient's lowest T-score is low at one or more skeletal sites. It meets the World Health Organization's (WHO) criteria for low bone mass (T-score between -1.0 and -2.5). The patient's 10-year risk of hip fracture as calculated by FRAX exceeds the threshold where pharmacological therapy is recommended by the National Osteoporosis Foundation (NOF). However, all treatment decisions require clinical judgment and consideration of individual patient factors, including patient preferences, comorbidities, previous drug use, risk factors not captured in the FRAX model (e.g., frailty, falls, vitamin D deficiency, increased bone turnover, interval significant decline in bone density) and possible under or overestimation of fracture risk by FRAX. The patient should follow a healthful lifestyle (good nutrition with adequate calcium and vitamin D, and appropriate weight-bearing exercise). Follow-Up: Consider a repeat BMD and Vertebral Fracture Assessment (VFA) exam in 2 years or sooner if medically necessary, to reassess this patient's status. Reported by: TAM GHOSH MD on 07/13/2023 3:59:00 PM.
== END ==
PROVIDERS: PCP Nurse Practitioner; Referring Provider Nurse Practitioner; Visit Provider Nurse Practitioner
DX: M81.0 Age-related osteoporosis without current pathological fracture (principal); I10 Essential (primary) hypertension; E04.1 Nontoxic single thyroid nodule; I35.1 Nonrheumatic aortic (valve) insufficiency; M85.89 Other specified disorders of bone density and structure, multiple sites
CPT/HCPCS: 76536; 77080; 93005; 93306

== ENCOUNTER → 2023-12-20 09:23 | Outpatient (CLI) | payer OTHER, SELFPAY ==
[2021-07-16 19:00] VITALS: BMI 23.8
--- NOTE | 2023-12-20 | DI.MG.S_ITS ---
BILATERAL DIGITAL DIAGNOSTIC MAMMOGRAM 3D/2D WITH AUGMENTATION: 12/20/2023 CLINICAL: Burning sensation in the Left breast. Comparison is made to exams dated: 10/30/2022 mammogram, 10/29/2021 mammogram, and 03/01/2020 mammogram - [facility]. Both breasts are heterogeneously dense, which may obscure small masses (category c / 51-75% glandular tissue). No significant masses, calcifications, or other findings are seen in either breast. Bilateral breast implants are stable. IMPRESSION: INCOMPLETE: NEEDS ADDITIONAL IMAGING EVALUATION No mammographic evidence of malignancy. A targeted ultrasound is recommended and will immediately follow. Based on the Tyrer Cuzick model (a risk assessment model) the patient's lifetime risk is 4.2% and her 10 year risk is 0.0%. According to the ACR, ACS, and NCCN guidelines, an annual breast MRI exam along with mammogram is recommended if the patient's lifetime risk is 20% or greater. This exam was interpreted at Station ID: [id number]. NOTE: For mammograms, a report in lay terms will be sent to the patient. Approximately 15% of breast malignancies will not be visualized mammographically. In the management of a palpable breast mass, a negative mammogram must not discourage biopsy of a clinically suspicious lesion. Electronically Signed By: Kaiser Masterson M.D. slc/:12/20/2023 10:40:43 ACR BI-RADS Category 0: Incomplete 3340F
--- NOTE | 2023-12-20 09:24 | DI.US.S_ITS ---
LIMITED ULTRASOUND OF LEFT BREAST: 12/20/2023 CLINICAL: Focal left breast pain/burning sensation. Comparison is made to exams dated: 12/20/2023 mammogram, 10/30/2022 mammogram, 10/29/2021 mammogram, and 03/01/2020 mammogram - [facility]. Color flow and real-time ultrasound of the left breast 3 o'clock region were performed. Felder scale images of the real-time examination were reviewed. No significant abnormalities were seen sonographically in the left breast in the region of concern. IMPRESSION: NEGATIVE There is no sonographic evidence of malignancy. A 1 year screening mammogram is recommended. Exam findings were conveyed to the patient. Patient is advised to monitor for significant change. Clinical follow-up as needed. This exam was interpreted at Station ID: [id number]. Electronically Signed By: Kaiser Masterson M.D. slc/:12/20/2023 10:55:55 letter sent: Normal Exam Ultrasound BI-RADS: 1 Negative
== END ==
LOC: MAMMO 09:23
PROVIDERS: PCP Nurse Practitioner; Referring Provider Nurse Practitioner; Visit Provider Nurse Practitioner
DX: R92.2 Inconclusive mammogram (principal); Z98.82 Breast implant status; R92.333 Mammographic heterogeneous density, bilateral breasts
CPT/HCPCS: 76642; 77066; G0279

== ENCOUNTER → 2024-03-04 08:56 | Outpatient (CLI) | payer OTHER, SELFPAY ==
[2021-07-16 19:00] VITALS: BMI 23.8
[2024-03-04 09:49] LABS: Add Manual Diff / Slide Review NO; Basophils Absolute Auto 0 /uL (0-100); Basophils Percent Auto 0.8 % (0-2); Eosinophils Absolute Auto 100 /uL (0-450); Eosinophils Percent Auto 2.5 % (2-4); Hematocrit 31.1 % (36-46); Hemoglobin 10.6 g/dL (12.0-16.0); Lymphocytes Absolute Auto 1000 /uL (1100-4500); Lymphocytes Percent Auto 19.7 % (25-40); Mean Corpuscular HGB Conc 34.1 % (30-36); Mean Corpuscular Hemoglobin 31.8 PG (26-34); Mean Corpuscular Volume 93.2 fL (80-100); Monocytes Absolute Auto 400 /uL (0-900); Monocytes Percent Auto 8.4 % (3-14); Neutrophils Absolute Auto 3500 /uL (1500-7000); Neutrophils Percent Auto 68.6 % (50-75); Platelet Count 246 X10^3/uL (150-400); Red Blood Cell Count 3.33 X10^6/uL (4.0-5.2); Red Cell Distribution Width 13.9 % (11.6-14.8); White Blood Cell Count 5.1 X10^3/uL (4.5-11.0)
[2024-03-04 10:17] LABS: HEMOLYSIS < 15 (0-50); Iron 114 ug/dL (37-170)
[2024-03-04 10:29] LABS: Percent Iron Saturation 36 % (15-50); Total Iron Binding Capacity 313 ug/dL (265-497); Transferrin 229 mg/dL (206-381)
[2024-03-04 10:55] LABS: Ferritin 148 ng/mL (11-264)
[2024-03-04 11:10] LABS: Vitamin B12 833 pg/mL (239-931)
== END ==
LOC: LAB 08:57
PROVIDERS: PCP Nurse Practitioner; Referring Provider Nurse Practitioner; Visit Provider Nurse Practitioner
DX: D64.9 Anemia, unspecified (principal); Z87.11 Personal history of peptic ulcer disease
CPT/HCPCS: 36415; 82607; 82728; 83540; 83550; 85025

== ENCOUNTER → 2024-03-15 11:46 | Outpatient (CLI) | payer OTHER, SELFPAY ==
[2021-07-16 19:00] VITALS: BMI 23.8
[2024-03-15 12:35] LABS: Occult Blood 1 Positive (Negative); Occult Blood 2 Positive (Negative); Occult Blood 3 Positive (Negative)
== END ==
PROVIDERS: PCP Nurse Practitioner; Referring Provider Nurse Practitioner; Visit Provider Nurse Practitioner
DX: D64.9 Anemia, unspecified (principal)
CPT/HCPCS: 82270

== ENCOUNTER → 2024-04-21 08:28 | Outpatient (CLI) | payer OTHER, SELFPAY ==
[2021-07-16 19:00] VITALS: BMI 23.8
[2024-04-21 09:46] LABS: Add Manual Diff / Slide Review NO; Basophils Absolute Auto 0 /uL (0-100); Basophils Percent Auto 1.1 % (0-2); Eosinophils Absolute Auto 200 /uL (0-450); Eosinophils Percent Auto 4.1 % (2-4); Hematocrit 31.7 % (36-46); Lymphocytes Absolute Auto 1000 /uL (1100-4500); Mean Corpuscular HGB Conc 34.7 % (30-36); Mean Corpuscular Volume 95.3 fL (80-100); Monocytes Absolute Auto 400 /uL (0-900); Monocytes Percent Auto 9.7 % (3-14); Neutrophils Absolute Auto 2400 /uL (1500-7000); Neutrophils Percent Auto 60.1 % (50-75); Platelet Count 193 X10^3/uL (150-400); Red Blood Cell Count 3.33 X10^6/uL (4.0-5.2); Red Cell Distribution Width 14.3 % (11.6-14.8); White Blood Cell Count 3.9 X10^3/uL (4.5-11.0)
[2024-04-21 10:48] LABS: HEMOLYSIS < 15 (0-50); Iron 123 ug/dL (37-170)
[2024-04-21 11:01] LABS: Percent Iron Saturation 46 % (15-50); Total Iron Binding Capacity 268 ug/dL (265-497); Transferrin 202 mg/dL (206-381)
[2024-04-21 11:46] LABS: Vitamin B12 708 pg/mL (239-931)
[2024-04-24 13:36] LABS: Fecal Immunochemical Test Negative (Negative)
== END ==
PROVIDERS: PCP Nurse Practitioner; Referring Provider Nurse Practitioner; Visit Provider Nurse Practitioner
DX: D64.9 Anemia, unspecified (principal); K92.1 Melena
CPT/HCPCS: 36415; 82274; 82607; 83540; 83550; 85025

== ENCOUNTER → 2024-06-09 09:50 | Outpatient (CLI) | payer OTHER, SELFPAY ==
[2021-07-16 19:00] VITALS: BMI 23.8
[2024-06-09 10:08] LABS: Add Manual Diff / Slide Review NO; Basophils Absolute Auto 0 /uL (0-100); Basophils Percent Auto 0.7 % (0-2); Eosinophils Absolute Auto 100 /uL (0-450); Eosinophils Percent Auto 2.5 % (2-4); Hemoglobin 11.3 g/dL (12.0-16.0); Lymphocytes Absolute Auto 1100 /uL (1100-4500); Lymphocytes Percent Auto 19.7 % (25-40); Mean Corpuscular HGB Conc 34.3 % (30-36); Mean Corpuscular Hemoglobin 32.6 PG (26-34); Mean Corpuscular Volume 95.2 fL (80-100); Monocytes Absolute Auto 600 /uL (0-900); Monocytes Percent Auto 10.1 % (3-14); Neutrophils Absolute Auto 3700 /uL (1500-7000); Platelet Count 240 X10^3/uL (150-400); Red Blood Cell Count 3.47 X10^6/uL (4.0-5.2); Red Cell Distribution Width 14.4 % (11.6-14.8); White Blood Cell Count 5.6 X10^3/uL (4.5-11.0)
[2024-06-09 10:32] LABS: HEMOLYSIS < 15 (0-50); Iron 84 ug/dL (37-170)
[2024-06-09 10:45] LABS: Percent Iron Saturation 32 % (15-50); Total Iron Binding Capacity 265 ug/dL (265-497); Transferrin 189 mg/dL (206-381)
[2024-06-09 11:27] LABS: Vitamin B12 673 pg/mL (239-931)
== END ==
PROVIDERS: PCP Nurse Practitioner; Referring Provider Nurse Practitioner; Visit Provider Nurse Practitioner
DX: D64.89 Other specified anemias (principal); R31.21 Asymptomatic microscopic hematuria; Z68.21 Body mass index [BMI] 21.0-21.9, adult
CPT/HCPCS: 36415; 81002; 82607; 83540; 83550; 85025; 99213

== ENCOUNTER → 2024-06-12 11:47 | Outpatient (CLI) | payer OTHER, SELFPAY ==
[2021-07-16 19:00] VITALS: BMI 23.8
[2024-06-12 13:41] LABS: Occult Blood 1 Negative (Negative); Occult Blood 2 Negative (Negative); Occult Blood 3 Negative (Negative)
== END ==
PROVIDERS: PCP Nurse Practitioner; Referring Provider Nurse Practitioner; Visit Provider Nurse Practitioner
DX: K92.2 Gastrointestinal hemorrhage, unspecified (principal)
CPT/HCPCS: 82270

== ENCOUNTER → 2024-08-09 10:16 | Outpatient (CLI) | payer OTHER, SELFPAY ==
[2021-07-16 19:00] VITALS: BMI 23.8
[2024-08-09 11:06] LABS: Hematocrit 35.7 % (36-46); Hemoglobin 11.9 g/dL (12.0-16.0); Mean Corpuscular HGB Conc 33.4 % (30-36); Mean Corpuscular Hemoglobin 32.5 PG (26-34); Mean Corpuscular Volume 97.4 fL (80-100); Platelet Count 200 X10^3/uL (150-400); Red Blood Cell Count 3.66 X10^6/uL (4.0-5.2); Red Cell Distribution Width 13.9 % (11.6-14.8)
[2024-08-09 11:27] LABS: BUN Creatinine Ratio 26.8 (6-22); Blood Urea Nitrogen 22 mg/dL (7-17); Calcium 9.4 mg/dL (8.4-10.2); Carbon Dioxide 27 mmol/L (22-32); Chloride 102 mmol/L (98-107); Cholesterol 151 mg/dL (140-199); Estimated Glomerular Filt Rate > 60 mL/min (>60); Glucose 98 mg/dL (80-110); HDL Cholesterol 86 mg/dL (40-60); HEMOLYSIS < 15 (0-50); LDL Cholesterol Calculated 55 mg/dL (<100); Potassium 4.4 mmol/L (3.4-5.1); Sodium 136 mmol/L (137-145); Triglycerides 50 mg/dL (35-150)
== END ==
PROVIDERS: PCP Nurse Practitioner; Referring Provider Internal Medicine Cardiovascular Disease; Visit Provider Internal Medicine Cardiovascular Disease
DX: I25.2 Old myocardial infarction (principal); D64.9 Anemia, unspecified; I10 Essential (primary) hypertension
CPT/HCPCS: 36415; 80048; 80061; 85027

== ENCOUNTER → 2024-08-17 09:47 | Outpatient (CLI) | payer OTHER, SELFPAY ==
[2021-07-16 19:00] VITALS: BMI 23.8
[2024-08-17 10:58] LABS: Hematocrit 33.1 % (36-46); Hemoglobin 11.3 g/dL (12.0-16.0); Mean Corpuscular HGB Conc 34.2 % (30-36); Mean Corpuscular Hemoglobin 32.8 PG (26-34); Platelet Count 242 X10^3/uL (150-400); Red Blood Cell Count 3.45 X10^6/uL (4.0-5.2); Red Cell Distribution Width 13.8 % (11.6-14.8); White Blood Cell Count 4.9 X10^3/uL (4.5-11.0)
[2024-08-17 11:17] LABS: Neutrophils Absolute Manual 3234 /uL (3000-5900); RBC Morphology Normal Morphology; Total Cells Counted 100
[2024-08-17 11:41] LABS: Thyroid Stimulating Hormone 3.91 uIU/mL (0.47-4.68)
[2024-08-21 12:36] LABS: Albumin 3.8 g/dL (2.9-4.4); Alpha-1-Globulin 0.2 g/dL (0.0-0.4); Alpha-2-Globulin 0.7 g/dL (0.4-1.0); Gamma Globulin 0.8 g/dL (0.4-1.8); Globulin Total 2.6 g/dL (2.2-3.9); Protein, Total 6.4 g/dL (6.0-8.5)
== END ==
PROVIDERS: PCP Family Medicine; Referring Provider Family Medicine; Visit Provider Family Medicine
DX: D72.819 Decreased white blood cell count, unspecified (principal); D64.9 Anemia, unspecified; E03.9 Hypothyroidism, unspecified; R53.83 Other fatigue
CPT/HCPCS: 36415; 84155; 84165; 84443; 85025

== ENCOUNTER → 2025-01-04 10:54 | Outpatient (CLI) | payer OTHER, SELFPAY ==
[2021-07-16 19:00] VITALS: BMI 23.8
--- NOTE | 2025-01-04 10:56 | DI.MG.S_ITS ---
MM screening mammo implant BI: 01/04/2025. BI-RADS: 2 CLINICAL: 79-year old female for bilateral screening mammogram. Tyrer-Cuzick lifetime risk of 2.2%. No personal or first-degree family history of breast cancer. The patient has bilateral implants. PRIOR EXAMS 12/20/2023, 10/30/2022, 10/29/2021, 09/18/2020, 03/25/2020, 03/01/2020, 12/06/2018, 11/13/2015. MAMMOGRAPHY TECHNIQUE: 2D and 3D (tomosynthesis) digital mammographic views obtained, with additional images as needed for full coverage. Current study was also evaluated with a Computer Aided Detection (CAD) system. DENSITY C. The breasts are heterogeneously dense, which may obscure small masses. IMPLANTS Similar appearance of the bilateral implants with question of bilateral extracapsular silicone. Breast implants present. MAMMOGRAPHY FINDINGS Bilateral: There are no suspicious masses, calcifications, or other findings in the breast. No significant change from comparison. IMPRESSION: * No evidence of malignancy with benign findings. RECOMMENDATIONS Bilateral * Annual screening mammography. COMMENTS: If clinically indicated, breast MRI can be obtained for further evaluation of implant integrity. OVERALL ASSESSMENT CATEGORY BI-RADS-2: Benign. The [employer] recommends annual screening mammography beginning at age 40 for women with average risk of breast cancer. ELECTRONICALLY SIGNED: Nica Cao M.D. on 01/04/2025 at 12:25:08 PM PT Interpreting Station ID: [id number]
== END ==
PROVIDERS: PCP Family Medicine; Referring Provider Family Medicine; Visit Provider Family Medicine
DX: Z12.31 Encounter for screening mammogram for malignant neoplasm of breast (principal); Z98.82 Breast implant status; R92.333 Mammographic heterogeneous density, bilateral breasts
CPT/HCPCS: 77063; 77067

== ENCOUNTER 2025-01-07 12:01 | Inpatient (IN) | payer OTHER, SELFPAY ==
[2021-07-16 19:00] VITALS: BMI 23.8
[2025-01-07] VITALS (19 sets, daily range): BP systolic 125–166; BP diastolic 53–87; PULSE 44–88; RESP 14–51; TEMP 36.2–37; O2SAT 91–100; BMI 20.9
--- NOTE | 2025-01-07 12:12 | EKG_ITS ---
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
--- NOTE | 2025-01-07 12:17 | DI.RAD.S_ITS ---
PROCEDURE: XR CHEST 1V INDICATIONS: chest pain TECHNIQUE: One view of the chest was acquired. COMPARISON: [facility], CR, XR CHEST 2V, 07/16/2021, 12:15. FINDINGS: Surgical changes and devices: Bilateral breast prosthesis. Atherosclerotic vascular calcification noted in the aortic arch. Lungs and pleura: Lungs are clear. No pleural effusions or pneumothorax. Mediastinum: Mediastinal contours appear normal. Heart size is normal. Bones and chest wall: No suspicious bony lesions. Overlying soft tissues appear unremarkable. IMPRESSION: No acute cardiopulmonary abnormality is seen. Approved by: Lemuel Conner M.D. on 01/07/2025 at 12:21
--- NOTE | 2025-01-07 12:27 | ED_ITS ---
HPI - Chest Pain General Chief Complaint: Chest Pain Stated Complaint: [facility]; Heart Episode t-1, Chest Pain Time Seen by Provider: 01/07/25 12:06 History of Present Illness HPI narrative: This is a 79-year-old female arriving by private vehicle for chest pain. States that about 340 this morning (patient was seen at about noon) she was awakened from her sleep my chest pain. Says it was across her entire chest. Did not notice shortness of breath nausea or diaphoresis but felt like her heart was pounding and racing. She took 2 sublingual nitroglycerin and symptoms resolved she thinks that her symptoms lasted for about 5 minutes. She has not been having similar symptoms recently and has not had any chest pain since then. The patient has not had aspirin today she states that she gets ulcers and generally does not take aspirin. She has been well otherwise has not noted any leg swelling or leg pain. Patient has a past history of non ST-elevation MD, I reviewed a cardiology note from July of 2023. In 2020, she had an NSTEMI with a mildly elevated troponin and subsequent negative cardiac catheterization and echocardiogram, it was thought that this was related to coronary vasospasm. Other medical history includes obstructive sleep apnea and is being seen by hematology for anemia. I reviewed their note from earlier this year. Patient's cardiac risk factors include hypertension and family history state that her father had coronary disease. She has no history of elevated cholesterol diabetes or smoking. Related Data Home Medications Medication Instructions Recorded Confirmed cholecalciferol (vitamin D3) 50 50 mcg PO BID 09/15/23 11/21/24 mcg (2,000 unit) capsule Previous Rx's Medication Instructions Recorded amlodipine 5 mg tablet 5 mg PO DAILY #90 tabs 04/13/22 losartan 50 mg tablet 50 mg PO DAILY #90 tabs 04/13/22 valacyclovir 1 gram tablet 1,000 mg PO Q12H #30 tabs 05/31/24 azelastine 137 mcg (0.1 %) nasal See Rx Instructions .Route 06/06/24 spray .COMPLEX #30 mL isosorbide mononitrate 60 mg 60 mg PO DAILY #90 tabs 06/06/24 tablet,extended release 24 hr tretinoin 0.1 % topical cream 1 applic topical BEDTIME #20 grams 08/14/24 (Retin-A) levothyroxine 50 mcg tablet 50 mcg PO DAILY #90 tabs 08/21/24 finasteride 5 mg tablet 2.5 mg (1/2 x 5 mg) PO DAILY #30 11/21/24 tabs Allergies Allergy/AdvReac Type Severity Reaction Status Date / Time cocamidopropyl betaine Allergy Intermediate Verified 11/21/24 15:33 Latex, Natural Rubber Allergy Intermediate swelling, Verified 11/21/24 15:33 itching, rash venom-wasp Allergy Intermediate swelling Verified 11/21/24 15:33 omeprazole Allergy Mild eye Verified 01/07/25 12:19 itching and urinary sxx polyethylene glycol AdvReac Intermediate ITCHING Verified 11/21/24 15:33 amiodarone AdvReac Mild ITCHING Verified 01/07/25 12:19 Patient History Medical History Abnormal mammogram of right breast Acquired hypothyroidism Allergies Anemia Ankle pain Anxiety Asymptomatic microscopic hematuria Chicken pox Chronic anemia 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) Essential hypertension (2014) Fatigue Fractures (~2013) Hematuria Hemoptysis Hepatitis C (~2015) Herpes History of hepatitis C virus infection Infertility Intermittent chest pain (05/2021) Leg muscle spasm Measles Mumps KALIN (obstructive sleep apnea) Osteopenia (11/2014) Pulmonary nodule (07/2021) Right ankle pain Shortness of breath Skin rash (~2011) Throat discomfort Thyroid nodule (12/2020) Wears glasses Surgical History Anesthesia Breast cyst History of appendectomy History of breast implant History of knee surgery (~2013) History of surgery History of tonsillectomy Family History Father Cancer History of heart disease Gout Mother Hypertension Brother Prostate cancer Grandfather Cancer Grandmother No problems noted. Social History household members: spouse second hand exposure: No alcohol intake: current substance use type: marijuana alcohol intake frequency: a few times a week Exam Initial Vital Signs Initial Vital Signs: Vital Signs Pulse Rate 83 01/07/25 12:10 Blood Pressure 141/87 H 01/07/25 12:10 Pulse Oximetry 91 01/07/25 12:10 vital signs are reviewed Const General: cooperative and No acute distress [facility] Head: normocephalic and atraumatic Face and sinus: face symmetric Mouth: moist mucous membranes Eyes Pupils: PERRL Neck Neck: normal visual inspection, supple and No JVD Chest Chest: normal inspection of the chest Resp Effort & Inspection: normal respiratory effort and able to speak in complete sentences Auscultation: clear to auscultation bilaterally Cardio Other: Appears to have a supraventricular bigeminy at times while I am in the room. Rate is regular otherwise heart sounds are normal GI Palpation: soft Auscultation: normal bowel sounds Skin General: warm Neuro General: patient alert, patient oriented x3 and moves all extremities Extrem General: full ROM Course Orders Ordered: ED Orders 01/07/25 12:17 XR chest 1V Stat EKG-12 Lead Stat 01/07/25 12:18 Complete Blood Count AUTO DIFF Stat Comprehensive Metabolic Panel Stat Lipase Stat Magnesium Stat NT-proBNP (BNP-Adult 18+) Stat PTT Partial Thromboplastin Eric Stat Prothrombin Time INR Stat Troponin & CK Cardiac Panel Stat 01/07/25 13:17 Urine Microscopic Stat 01/07/25 14:20 Troponin I Stat 01/07/25 14:57 EKG-12 Lead Stat Heparin Sodium/Dextrose (Heparin Drip) 25,000 unit in 500 mls @ 14.152 mls/hr IV CONT JORDY; Protocol Last Titration: 01/07/25 16:59 Dose: 12 units/kg/hr, 14.152 mls/hr Documented By: SAVANNA Co-signed By: CTS Admin: 01/07/25 16:10 Dose: 12 units/kg/hr, 14.152 mls/hr Documented By: Co-signed By: RLS Discontinued Medications Acetaminophen (Acetaminophen 325 Mg Tablet) 975 mg PO NOW ONE Stop: 01/07/25 16:08 Last Admin: 01/07/25 16:08 Dose: 975 mg Documented By: Aspirin (Aspirin 81 Mg Chew Tab) 324 mg PO NOW ONE Stop: 01/07/25 12:17 Last Admin: 01/07/25 12:26 Dose: Not Given Documented By: SAVANNA Heparin Sodium (Porcine) (Heparin 5,000 Unit/Ml Vial) 3,500 unit 60 unit/kg (3500 unit) IV NOW ONE Stop: 01/07/25 15:53 Last Admin: 01/07/25 16:10 Dose: 3,500 unit Documented By: Reevaluation(s) Reevaluation #1: Patient was re-evaluated, discussed plans for admission giving rising troponin. She is not having chest pain. Repeat EKG did not show ischemic changes. Consultations Consultation #1: Discussed with Cardiology, Dr. Nguyen, patient does not need to transfer elsewhere, agrees with heparinization and serial troponins Consultation #2: Discussed with the hospitalist, Dr. Perry, accepts admission Vital Signs Vital signs: Vital Signs - 8 hr 01/07/25 12:10 01/07/25 12:10 01/07/25 12:13 Temperature 97.8 F Pulse Rate 83 44 L Respiratory Rate 16 Blood Pressure 141/87 H 141/87 H Pulse Oximetry 91 97 Oxygen Delivery Method Room Air 01/07/25 12:30 01/07/25 13:00 01/07/25 13:01 Temperature Pulse Rate 88 72 Respiratory Rate Blood Pressure 166/73 H Pulse Oximetry 98 98 Oxygen Delivery Method 01/07/25 13:01 01/07/25 13:18 01/07/25 13:18 Temperature Pulse Rate 71 68 Respiratory Rate 20 Blood Pressure 157/66 H Pulse Oximetry 98 98 Oxygen Delivery Method 01/07/25 13:30 01/07/25 13:30 01/07/25 14:00 Temperature Pulse Rate 66 Respiratory Rate Blood Pressure 143/67 H 140/67 Pulse Oximetry 99 Oxygen Delivery Method 01/07/25 14:00 01/07/25 14:26 01/07/25 14:26 Temperature Pulse Rate 63 64 Respiratory Rate 14 Blood Pressure 160/71 H Pulse Oximetry 99 99 Oxygen Delivery Method 01/07/25 14:30 01/07/25 14:30 01/07/25 15:00 Temperature Pulse Rate 58 L 66 Respiratory Rate Blood Pressure 147/65 H Pulse Oximetry 99 98 Oxygen Delivery Method 01/07/25 15:30 01/07/25 15:32 01/07/25 15:32 Temperature Pulse Rate 63 67 Respiratory Rate Blood Pressure 139/77 Pulse Oximetry 99 99 Oxygen Delivery Method 01/07/25 16:00 01/07/25 16:30 Temperature Pulse Rate 69 70 Respiratory Rate 19 51 H Blood Pressure Pulse Oximetry 99 99 Oxygen Delivery Method MDM - Chest Pain Lab Data Lab results narrative: CBC with diff and CMP are unremarkable, troponin goes from normal to strongly abnormal at 0.13 on repeat 01/07/25 12:18 01/07/25 12:18 Labs: Lab Results 01/07/25 01/07/25 01/07/25 Range/Units 12:18 13:17 14:20 WBC 4.2 L (4.5-11.0) X10^3/uL RBC 3.78 L (4.0-5.2) X10^6/uL Hgb 12.2 (12.0-16.0) g/dL Hct 36.3 (36-46) % MCV 96.0 (80-100) fL MCH 32.2 (26-34) PG MCHC 33.6 (30-36) % RDW 13.9 (11.6-14.8) % Plt Count 233 (150-400) X10^3/uL Neut % (Auto) 64.7 (50-75) % Lymph % (Auto) 20.5 L (25-40) % [place] % (Auto) 11.5 (3-14) % Eos % (Auto) 2.4 (2-4) % Baso % (Auto) 0.9 (0-2) % Neut # (Auto) 2700 (4521-1200) /uL Lymph # (Auto) 900 L (1577-9957) /uL [place] # (Auto) 500 (0-900) /uL Eos # (Auto) 100 (0-450) /uL Baso # (Auto) 0 (0-100) /uL PT 10.8 (9.4-12.5) SECONDS INR 1.0 (0.9-1.3) APTT 37 H (25.1-36.5) SECONDS Sodium 135 L (137-145) mmol/L Potassium 4.3 (3.4-5.1) mmol/L Chloride 99 (98-107) mmol/L Carbon Dioxide 24 (22-32) mmol/L BUN 23 H (7-17) mg/dL Creatinine 0.80 (0.52-1.04) mg/dL Estimated GFR > 60 (>60) mL/min BUN/Creatinine Ratio 28.8 H (6-22) Glucose 119 H (80-110) mg/dL Calcium 9.8 (8.4-10.2) mg/dL Magnesium 2.0 (1.6-2.3) mg/dL Total Bilirubin 0.6 (0.2-1.3) mg/dL AST 32 (14-36) IU/L ALT 24 (<35) IU/L Alkaline Phosphatase 60 (38-126) U/L Total Creatine Kinase 23 L (30-135) U/L Troponin I < 0.012 0.130 H* (0.01-0.034) ng/mL NT-Pro-B Natriuret Pep 212 (<450) pg/mL Total Protein 8.0 (6.3-8.2) g/dL Albumin 4.9 (3.5-5.0) g/dL Globulin 3.1 (1.7-4.1) g/dL Albumin/Globulin Ratio 1.6 (1.0-2.8) Lipase 159 (23-300) U/L Urine RBC 0-1/hpf (0-5/HPF) Urine WBC None seen (0-5/HPF) Ur Squamous Epith Cells None seen (0-5/HPF) Urine Bacteria None seen (None) Ur Culture Indicated? Cult not indicated Vol Urine Centrifuged 10ml (spun) Urine Dip Bedside Urine Glucose Negative Bedside Urine Bilirubin - Negative Bedside Urine Ketone - Negative Urine Specific [place] 1.010 Bedside Urine Occult Blood + Bedside Urine pH 6.0 Bedside Urine Protein - Negative Bedside Urine Urobilinogen - Negative Bedside Urine Nitrite - Negative Bedside Urine Leukocytes - Negative Esterase Imaging Data Chest x-ray: My Impression: Independent review chest x-ray, no acute findings Radiologist's Impression: Radiology report reviewed and no acute abnormality ECG Data Interpretation: ECG shows sinus rhythm at 87 with PVC. No acute ST elevation, possible ST- depression in V4 and V5 no old EKG available for comparison MDM Narrative Medical decision making narrative: 79-year-old female with a history of non ST-elevation MD presenting with an episode of chest pain earlier today. She is pain-free when seen in the emergency department and is hemodynamically stable. ECG does not show diagnostic changes for acute MD, initial troponin is normal, troponin is strongly abnormal on 2 hour recheck. Presentation does not suggest pulmonary embolism and I did not pursue testing for this. Patient is stable and pain- free, she was given aspirin heparinized and admitted to the hospitalist service. Case was discussed with Cardiology. Discharge Plan Departure Patient Disposition: Admitted As Inpatient Clinical Impression: Acute non-ST elevation myocardial infarction (NSTEMI) Admit Date/Time: 01/07/25 16:35 Admit Provider: Michael Perry V
[2025-01-07 12:28] LABS: Add Manual Diff / Slide Review NO; Basophils Absolute Auto 0 /uL (0-100); Basophils Percent Auto 0.9 % (0-2); Eosinophils Absolute Auto 100 /uL (0-450); Eosinophils Percent Auto 2.4 % (2-4); Hematocrit 36.3 % (36-46); Hemoglobin 12.2 g/dL (12.0-16.0); Lymphocytes Absolute Auto 900 /uL (1100-4500); Lymphocytes Percent Auto 20.5 % (25-40); Mean Corpuscular HGB Conc 33.6 % (30-36); Mean Corpuscular Hemoglobin 32.2 PG (26-34); Monocytes Absolute Auto 500 /uL (0-900); Monocytes Percent Auto 11.5 % (3-14); Neutrophils Absolute Auto 2700 /uL (1500-7000); Neutrophils Percent Auto 64.7 % (50-75); Platelet Count 233 X10^3/uL (150-400); Red Blood Cell Count 3.78 X10^6/uL (4.0-5.2); Red Cell Distribution Width 13.9 % (11.6-14.8); White Blood Cell Count 4.2 X10^3/uL (4.5-11.0)
[2025-01-07 12:34] LABS: Prothrombin Time 10.8 SECONDS (9.4-12.5)
[2025-01-07 12:36] LABS: PTT Partial Thromboplastin Tim 37 SECONDS (25.1-36.5)
[2025-01-07 12:38] LABS: Alanine Aminotransferase 24 IU/L (<35); Albumin 4.9 g/dL (3.5-5.0); Albumin Globulin Ratio 1.6 (1.0-2.8); Alkaline Phosphatase 60 U/L (38-126); Aspartate Aminotransferase 32 IU/L (14-36); BUN Creatinine Ratio 28.8 (6-22); Bilirubin Total 0.6 mg/dL (0.2-1.3); Blood Urea Nitrogen 23 mg/dL (7-17); Calcium 9.8 mg/dL (8.4-10.2); Carbon Dioxide 24 mmol/L (22-32); Chloride 99 mmol/L (98-107); Creatine Kinase 23 U/L (30-135); Estimated Glomerular Filt Rate > 60 mL/min (>60); Globulin 3.1 g/dL (1.7-4.1); Glucose 119 mg/dL (80-110); HEMOLYSIS < 15 (0-50); Lipase 159 U/L (23-300); Potassium 4.3 mmol/L (3.4-5.1); Sodium 135 mmol/L (137-145)
--- NOTE | 2025-01-07 12:38 | PC.NURSE ---
weakness since yesterday. history of same that was associated with cardiac spasms and DC. Pt reports she feels fine laying down. However pt reports she has also been having some accompanied chest pain. GCS 15. Respirations regular and unlabored.
[2025-01-07 12:50] LABS: NT-proBNP (BNP-Adult 18+) 212 pg/mL (<450); Troponin I < 0.012 ng/mL (0.01-0.034)
[2025-01-07 14:03] LABS: Bacteria Urine None Seen; Squamous Epithelial Cell Urine None Seen (0-5/HPF); Urine Volume 10mL (spun); WBC Urine None Seen (0-5/HPF)
[2025-01-07 14:04] LABS: Culture Indicated Urine Cult Not Indicated; RBC Urine 0-1/HPF (0-5/HPF)
--- NOTE | 2025-01-07 14:57 | EKG_ITS ---
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
[2025-01-07] MEDS: ACETAMINOPHEN 325 MG TABLET 975 MG PO (16:08)
[2025-01-07] MEDS: HEPARIN 5,000 UNIT/ML VIAL 3500 UNIT IV (16:10)
[2025-01-07] MEDS: HEPARIN DRIP 25,000 UNIT/500 ML IV.SOLN 14.152 UNIT IV (16:10)
--- NOTE | 2025-01-07 16:17 | PM.HP.IH.1 ---
History of Present Illness History of Present Illness Date Patient Seen: 01/07/25 Time Patient Seen: 16:30 Chief complaint: [facility]; Heart Episode t-1, Chest Pain Narrative: 79-year-old woman under the primary care of Dr.Caitlin Liu, followed by Dr. Danitza Street of cardiology, developed chest pain waking her from sleep at 3:40am this morning, with palpitations with a racing heart and pain across her chest, and no shortness of breath or diaphoresis. She took 2 SL NTG and symptoms resolved lasting a total of 5 minutes. 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 She wears a ring device at night and demonstrates that at 3:49a.m. her heart rate went from the 50s to 128bpm, for approximately 5-10 minutes before returning back to baseline. She denies recent stress though had been doing heavy gardening the day before, and felt fairly exhausted yesterday, having to lie down for 2 hours, though without chest pain or palpitations at that time. The patient was admitted in July 2021 for similar symptoms with a mild troponin elevation for which cardiac catheterization and echocardiography were unremarkable, suspected etiology of coronary vasospasm. She does not take aspirin given history of anemia her GI, is not on a statin as her cholesterol is chronically low, and remains on losartan 50 mg daily and amlodipine (maximum dose 5 mg as she has edema on 10 mg), with isosorbide 60 mg daily, with as needed nitroglycerin and propranolol for anxiety and panic attacks. [facility] Medical History Abnormal mammogram of right breast Acquired hypothyroidism Allergies Anemia Ankle pain Anxiety Asymptomatic microscopic hematuria Chicken pox Chronic anemia 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) Essential hypertension (2014) Fatigue Fractures (~2013) Hematuria Hemoptysis Hepatitis C (~2015) Herpes History of hepatitis C virus infection Infertility Intermittent chest pain (05/2021) Leg muscle spasm Measles Mumps KALIN (obstructive sleep apnea) Osteopenia (11/2014) Pulmonary nodule (07/2021) Right ankle pain Shortness of breath Skin rash (~2011) Throat discomfort Thyroid nodule (12/2020) Wears glasses Surgical History Anesthesia Breast cyst History of appendectomy History of breast implant History of knee surgery (~2013) History of surgery History of tonsillectomy Family History Father Cancer History of heart disease Gout Mother Hypertension Brother Prostate cancer Grandfather Cancer Grandmother No problems noted. Social History household members: spouse Smoking Status: Never smoker second hand exposure: No alcohol intake: current substance use type: marijuana Meds Home Medications and Allergies Home Medications Medication Instructions Recorded Confirmed Type amlodipine 5 mg tablet 5 mg PO DAILY #90 tabs 04/13/22 01/07/25 Rx cholecalciferol (vitamin D3) 50 50 mcg PO DAILY 09/15/23 01/07/25 History mcg (2,000 unit) capsule azelastine 137 mcg (0.1 %) nasal See Rx Instructions .Route 06/06/24 01/07/25 Rx spray .COMPLEX #30 mL isosorbide mononitrate 60 mg 60 mg PO DAILY #90 tabs 06/06/24 01/07/25 Rx tablet,extended release 24 hr levothyroxine 50 mcg tablet 50 mcg PO DAILY #90 tabs 08/21/24 01/07/25 Rx losartan 50 mg tablet 50 mg PO BEDTIME 01/07/25 01/07/25 History oxymetazoline 0.05 % nasal spray 2 spray intranasal Q12H PRN 01/07/25 01/07/25 History (12 Hour Nasal [place]) Congestion Allergies Allergy/AdvReac Type Severity Reaction Status Date / Time cocamidopropyl betaine Allergy Intermediate Verified 11/21/24 15:33 Latex, Natural Rubber Allergy Intermediate swelling, Verified 11/21/24 15:33 itching, rash venom-wasp Allergy Intermediate swelling Verified 11/21/24 15:33 omeprazole Allergy Mild eye Verified 01/07/25 12:19 itching and urinary sxx polyethylene glycol AdvReac Intermediate ITCHING Verified 11/21/24 15:33 amiodarone AdvReac Mild ITCHING Verified 01/07/25 12:19 Review of Systems Review of Systems ROS: Yes All systems reviewed with the patient and are negative except as otherwise documented Exam Vital Signs (past 8 hours): - 01/07/25 12:13 Temperature 97.8 F Pulse Rate 44 L Respiratory Rate 16 Blood Pressure 141/87 H Pulse Oximetry 97 Oxygen Delivery Method Room Air Oxygen Delivery Method Room Air Narrative Exam Narrative: GENERAL: This is a well-nourished, well-developed patient, in no apparent distress. HEAD: Atraumatic. Normocephalic. No temporal or scalp tenderness. EYES: Pupils equal round and reactive. Extraocular motions intact. No scleral icterus. No injection or drainage. ENT: Mucous membranes pink and moist. NECK: Trachea midline. No JVD, bruits or lymphadenopathy. Supple, nontender, no meningeal signs. CARDIOVASCULAR: Regular rate and rhythm without murmurs, gallops, or rubs. RESPIRATORY: Clear to auscultation. GASTROINTESTINAL: Abdomen soft, non-tender, nondistended. EXTREMITIES: No clubbing, cyanosis, or edema. BACK: Nontender without deformity or crepitance. No flank tenderness. NEUROLOGIC: Alert, oriented, speech fluent, full upper and lower motor strength, no focal deficits evident. DERMATOLOGIC: No rashes or skin lesions. Objective Imaging Chest x-ray: My impression: EKG #1: Sinus rhythm at 87bpm; Nonspecific ST abnormality EKG #2: Sinus rhythm with premature supraventricular complexes at 67bpm; Septal infarct , age undetermined Radiologist's impression: No acute cardiopulmonary abnormality is seen. Labs 01/07/25 12:18 01/07/25 12:18 Labs: Laboratory Results - last 24 hr 01/07/25 01/07/25 01/07/25 12:18 13:17 14:20 WBC 4.2 L RBC 3.78 L Hgb 12.2 Hct 36.3 MCV 96.0 MCH 32.2 MCHC 33.6 RDW 13.9 Plt Count 233 Neut % (Auto) 64.7 Lymph % (Auto) 20.5 L [place] % (Auto) 11.5 Eos % (Auto) 2.4 Baso % (Auto) 0.9 Neut # (Auto) 2700 Lymph # (Auto) 900 L [place] # (Auto) 500 Eos # (Auto) 100 Baso # (Auto) 0 PT 10.8 INR 1.0 APTT 37 H Sodium 135 L Potassium 4.3 Chloride 99 Carbon Dioxide 24 BUN 23 H Creatinine 0.80 Estimated GFR > 60 BUN/Creatinine Ratio 28.8 H Glucose 119 H Calcium 9.8 Magnesium 2.0 Total Bilirubin 0.6 AST 32 ALT 24 Alkaline Phosphatase 60 Total Creatine Kinase 23 L Troponin I < 0.012 0.130 H* NT-Pro-B Natriuret Pep 212 Total Protein 8.0 Albumin 4.9 Globulin 3.1 Albumin/Globulin Ratio 1.6 Lipase 159 Urine RBC 0-1/hpf Urine WBC None seen Ur Squamous Epith Cells None seen Urine Bacteria None seen Ur Culture Indicated? Cult not indicated Vol Urine Centrifuged 10ml (spun) Assessment & Plan Assessment & Plan narrative: 1. Acute non-STEMI. Likely coronary vasospasm similar to prior history, rule out occult tachyarrhythmia. Monitor on telemetry on heparin infusion with serial cardiac enzymes. Consider cardiology consultation. Check lipids and echocardiogram. 2. Palpitations. Rule out atrial fibrillation, SVT. 3. Hypertension. Continue routine meds. 4. Hypothyroidism. Continue routine medications and check TSH. 5. DVT prophylaxis: Heparin gtt. 6. Code status: Full code. Plan: - Inpatient status - Telemetry - Serial cardiac enzymes - Heparin gtt - Check lipids, TSH - Echocardiogram Quality MIPS - Admit I confirm the patient?s Advance Care Plan is present, Code status is documented, Surrogate decision maker is in patient?s record [If Yes, STOP here]: Yes MIPS - Meds 'Current medications' to include all prescriptions, [id number] products, herbals, cannabis/cannabidiol products, and vitamin/mineral/dietary (nutritional) supplements. I have utilized all available resources to obtain, update, or review the patient?s current medications. 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
--- NOTE | 2025-01-07 16:57 | PC.NURSE ---
Pt reports she is free from chest pain and states her dizziness is at bay when laying down. Pt able to ambulate to and from bathroom w/o issue
--- NOTE | 2025-01-07 17:30 | DI.ECHO.S_ITS ---
[facility] : : [address] : : [place] : : [id number] : : Phone: [phone] Echocardiogram Report + + :Name: ELIU HADDAD Study Date: 01/08/2025 Height: 66 in : :Hospital ReadingLocation: Weight: 130 lb : : Gender: Female BSA: 1.7 m2 : :: 1945 Age: 79 yrs BP: 149/70 mmHg: :Reason For Study: NONSTEMI : :Ordering Physician: RENETTA, : :SARAH Performed By: Latasha Gomez : :Referring: SARAH JACKSON : + + Interpretation Summary Normal left ventricle size with ejection fraction 55%. Mid anterior wall and mid septum akinesis. The aortic valve is slightly calcified. Mild aortic regurgitation. Comparison is made with the echocardiogram of 07/13/2023, wall motion abnormality is new. Procedure: A two-dimensional transthoracic echocardiogram with color flow and Doppler was performed. The study quality was technically adequate. Comparison is made with the echocardiogram of 07/13/2023. The patient was in sinus bradycardia with heart rates between 52-68 bpm during the exam. Left Ventricle: The left ventricle is normal in size and wall thickness. Left ventricular ejection fraction is estimated to be 55%. There is mid anterior wall akinesis. There is mid anteroseptal wall akinesis. Diastolic parameters suggest probable normal left ventricular diastolic function and normal filling pressures. Right Ventricle: The right ventricle is normal in size and function. Atria: The left atrium is borderline dilated. This is unchanged compared to the previous study. There is no Doppler evidence for an interatrial shunt. Mitral Valve: The mitral valve leaflets appear mildly thickened, but open well. There is mild mitral regurgitation. Aortic Valve: The aortic valve is slightly calcified. The aortic valve is trileaflet. There is no aortic valve stenosis. There is mild aortic regurgitation. Tricuspid Valve: The tricuspid valve leaflets are thin and pliable. There is a trace or physiologic amount of tricuspid regurgitation. Pulmonary artery pressures cannot be estimated because of the lack of a measurable TR jet velocity. Pulmonic Valve: The pulmonic valve is not well visualized. There is no pulmonic valvular regurgitation. Great Vessels: The aortic root is normal size. The ascending aorta could not be visualized. The IVC is of normal diameter and collapses greater than 50% with a sniff. This suggests a low right atrial pressure of 3 mm Hg. Pericardium/ Pleura There is no pericardial effusion. There is no pleural effusion. MMode/2D Measurements & Calculations LVIDd: 4.3 cm LVOT diam: 1.9 cm LVIDs: 3.3 cm Ao root diam: 3.0 cm FS: 24.8 % Ao Arch Diam (Prox Trans): 2.9 cm EPSS: 0.30 cm IVSd: 0.64 cm LVPWd: 0.78 cm LV hansen. diameter/BSA (cm/m^2): 2.6 LV sys. diameter/BSA (cm/m^2): 2.0 LA A2 area: 20.4 cm2 RA long axis: 4.7 cm LA A4 area: 15.9 cm2 RA area: 14.7 cm2 LA length (vol): 4.9 cm RA vol: 38.8 ml LA vol: 55.7 ml RA : 23.3 ml/m2 LA vol index: 33.4 ml/m2 IVC diam: 2.0 cm RVD1 (basal): 2.8 cm RVD2 (mid): 2.3 cm TAPSE: 2.5 cm Doppler Measurements & Calculations MV E max payam: 80.5 cm/sec PA V2 max: 70.4 cm/sec MV A max payam: 62.9 cm/sec PA V2 mean: 49.6 cm/sec MV E/A: 1.3 PA mean P.1 mmHg Med Peak E' Payam: 11.0 cm/sec PA pr(Accel): 27.6 mmHg E/E' med: 7.3 Lat Peak E' Payam: 10.7 cm/sec E/E' lat: 7.5 E/e' average: 7.4 MV dec time: 0.19 sec Pulm A Revs Payam: 21.8 cm/sec Pulm A Revs Dur: 0.07 sec Electronically signed by: Faye Mac on Reading Physician:01/08/2025 10:48 AM
--- NOTE | 2025-01-07 17:46 | PC.ADMIT ---
[email or web address] [facility] Admission Note: Admitted from the ED via stretcher. Ambulated to new bed independently. A/O x4, no complaints of chest pain, SOB, nausea. Heparin infusing to right AC at 12units/kg/hr. The patient,Ana Cristina Raines,79 y/o, was given written information regarding hospital policies, unit procedures and contact persons. Patient's smoking status: Never smoker. Vital Signs - 8 hr 01/07/25 12:10 01/07/25 12:10 01/07/25 12:13 Temperature 97.8 F Pulse Rate 83 44 L Respiratory Rate 16 Blood Pressure 141/87 H 141/87 H Pulse Oximetry 91 97 Oxygen Delivery Method Room Air 01/07/25 12:30 01/07/25 13:00 01/07/25 13:01 Temperature Pulse Rate 88 72 Respiratory Rate Blood Pressure 166/73 H Pulse Oximetry 98 98 Oxygen Delivery Method 01/07/25 13:01 01/07/25 13:18 01/07/25 13:18 Temperature Pulse Rate 71 68 Respiratory Rate 20 Blood Pressure 157/66 H Pulse Oximetry 98 98 Oxygen Delivery Method 01/07/25 13:30 01/07/25 13:30 01/07/25 14:00 Temperature Pulse Rate 66 Respiratory Rate Blood Pressure 143/67 H 140/67 Pulse Oximetry 99 Oxygen Delivery Method 01/07/25 14:00 01/07/25 14:26 01/07/25 14:26 Temperature Pulse Rate 63 64 Respiratory Rate 14 Blood Pressure 160/71 H Pulse Oximetry 99 99 Oxygen Delivery Method 01/07/25 14:30 01/07/25 14:30 01/07/25 15:00 Temperature Pulse Rate 58 L 66 Respiratory Rate Blood Pressure 147/65 H Pulse Oximetry 99 98 Oxygen Delivery Method 01/07/25 15:30 01/07/25 15:32 01/07/25 15:32 Temperature Pulse Rate 63 67 Respiratory Rate Blood Pressure 139/77 Pulse Oximetry 99 99 Oxygen Delivery Method 01/07/25 16:00 01/07/25 16:30 01/07/25 17:29 Temperature 98.3 F Pulse Rate 69 70 74 Respiratory Rate 19 51 H 17 Blood Pressure 151/71 H Pulse Oximetry 99 99 100 Oxygen Delivery Method
[2025-01-07 18:38] LABS: Cholesterol 167 mg/dL (140-199); HDL Cholesterol 85 mg/dL (40-60); LDL Cholesterol Calculated 74 mg/dL (<100); Triglycerides 38 mg/dL (35-150)
[2025-01-07] MEDS: NITROGLYCERIN 0.4 MG SL TAB SL (19:01)
[2025-01-07 19:08] LABS: Troponin I 0.856 ng/mL (0.01-0.034)
[2025-01-07] MEDS: LOSARTAN 50 MG TABLET PO (20:51)
[2025-01-07 22:30] LABS: PTT Partial Thromboplastin Tim 76 SECONDS (25.1-36.5)
--- NOTE | 2025-01-07 22:39 | PC.NURSE ---
Heparin gtt titrated from 12u/kg/hr to 11 u/kg/hr based on Coronary Heparin gtt protocol with PTT of 76
[2025-01-08 02:04] LABS: Troponin I 0.528 ng/mL (0.01-0.034)
[2025-01-08 03:00] VITALS: BP 149/70; PULSE 59; RESP 16; TEMP 36.3; O2SAT 99
[2025-01-08 05:37] LABS: Add Manual Diff / Slide Review NO; Basophils Absolute Auto 0 /uL (0-100); Basophils Percent Auto 1.1 % (0-2); Eosinophils Absolute Auto 200 /uL (0-450); Eosinophils Percent Auto 4.7 % (2-4); Hematocrit 34.8 % (36-46); Lymphocytes Absolute Auto 1200 /uL (1100-4500); Lymphocytes Percent Auto 31.1 % (25-40); Mean Corpuscular HGB Conc 34.4 % (30-36); Mean Corpuscular Hemoglobin 32.8 PG (26-34); Mean Corpuscular Volume 95.4 fL (80-100); Monocytes Absolute Auto 400 /uL (0-900); Monocytes Percent Auto 11.2 % (3-14); Neutrophils Absolute Auto 2000 /uL (1500-7000); Neutrophils Percent Auto 51.9 % (50-75); Platelet Count 210 X10^3/uL (150-400); Red Blood Cell Count 3.65 X10^6/uL (4.0-5.2); Red Cell Distribution Width 13.7 % (11.6-14.8); White Blood Cell Count 3.9 X10^3/uL (4.5-11.0)
[2025-01-08 05:42] LABS: PTT Partial Thromboplastin Tim 58 SECONDS (25.1-36.5)
[2025-01-08 05:49] LABS: BUN Creatinine Ratio 27.8 (6-22); Blood Urea Nitrogen 20 mg/dL (7-17); Calcium 9.4 mg/dL (8.4-10.2); Carbon Dioxide 25 mmol/L (22-32); Chloride 103 mmol/L (98-107); Estimated Glomerular Filt Rate > 60 mL/min (>60); Glucose 98 mg/dL (80-110); HEMOLYSIS < 15 (0-50); Potassium 3.9 mmol/L (3.4-5.1); Sodium 136 mmol/L (137-145)
[2025-01-08 06:35] LABS: TSH w/ Reflex to FT4 5.29 uIU/mL (0.47-4.68)
[2025-01-08 07:00] VITALS: BP 145/65; PULSE 55; RESP 15; TEMP 37.1; O2SAT 97
[2025-01-08 07:04] LABS: Free T4, Direct Thyroxine 1.16 ng/dL (0.78-2.19)
[2025-01-08] MEDS: LEVOTHYROXINE 50 MCG TABLET PO (08:00)
[2025-01-08] MEDS: ISOSORBIDE MONONITRATE ER 30 MG TABLET 60 MG PO (08:25)
[2025-01-08] MEDS: ASPIRIN EC 325 MG TABLET PO (09:09)
[2025-01-08] MEDS: AMLODIPINE 5 MG TABLET PO (09:09)
[2025-01-08 11:00] VITALS: BP 120/61; PULSE 61; RESP 15; TEMP 36.7; O2SAT 97
[2025-01-08 11:45] LABS: PTT Partial Thromboplastin Tim 56 SECONDS (25.1-36.5)
[2025-01-08] MEDS: ATORVASTATIN 20 MG TABLET 80 MG PO (13:01)
[2025-01-08] MEDS: METOPROLOL IR 25 MG TABLET PO (13:01)
[2025-01-08] MEDS: CLOPIDOGREL 75 MG TABLET PO (13:01)
--- NOTE | 2025-01-08 15:41 | PM.DS.1 ---
History of Present Illness History of Present Illness Date Patient Seen: 01/08/25 Time Patient Seen: 15:41 Chief complaint: WIC; Heart Episode t-1, Chest Pain Narrative: Chief complaint: Chest pain palpitations shortness for breath secondary to non STEMI History of present illness: 79-year-old woman under the primary care of Dr.Caitlin Liu, followed by Dr. Danitza Street of cardiology, developed chest pain waking her from sleep at 3:40am this morning, with palpitations with a racing heart and pain across her chest, and no shortness of breath or diaphoresis. She took 2 SL NTG and symptoms resolved lasting a total of 5 minutes. She states she has been told she has atrial fibrillation in the past but has not had formal studies, and states that she has not told her vice president. She wears a ring device at night and demonstrates that at 3:49a.m. her heart rate went from the 50s to 128bpm, for approximately 5-10 minutes before returning back to baseline. She denies recent stress though had been doing heavy gardening the day before, and felt fairly exhausted yesterday, having to lie down for 2 hours, though without chest pain or palpitations at that time. The patient was admitted in July 2021 for similar symptoms with a mild troponin elevation for which cardiac catheterization and echocardiography were unremarkable, suspected etiology of coronary vasospasm. She does not take aspirin given history of anemia her GI, is not on a statin as her cholesterol is chronically low, and remains on losartan 50 mg daily and amlodipine (maximum dose 5 mg as she has edema on 10 mg), with isosorbide 60 mg daily, with as needed nitroglycerin and propranolol for anxiety and panic attacks. Serial troponin peaked at 0.8 then back down to 0.5 Echocardiogram: Normal left ventricle size with ejection fraction 55%. Mid anterior wall and mid septum akinesis. The aortic valve is slightly calcified. Mild aortic regurgitation. Comparison is made with the echocardiogram of 07/13/2023, wall motion abnormality is new. 1. Acute non-STEMI. Likely coronary vasospasm similar to prior history, rule out occult tachyarrhythmia. Monitor on telemetry on heparin infusion with serial cardiac enzymes. Consider cardiology consultation via telephone. Consensus was to transfer the patient for cardiac catheterization as the echocardiogram shows new wall motion abnormalities patient placed on dual anti-platelet high-dose statin and metoprolol 2. Palpitations. Rule out atrial fibrillation, SVT. 3. Hypertension. Continue routine meds. 4. Hypothyroidism. Continue routine medications and check TSH. 5. DVT prophylaxis: Heparin gtt. 6. Code status: Full code. Plan: Transfer to Interventional Card[facility] Discharge Providers Provider Date of admission: 01/07/25 16:35 Discharge Date: 01/08/25 Primary care physician: Anne Clark MD Consults: 01/08/25 11:31 Consult to Cardiology Routine Comment: Consulting Provider: Elvis Street Reason for consultation: prinzmetal's Discharge provider: Bobo Armstrong MD Exam Vital Signs (past 8 hours): - 01/08/25 11:00 Temperature 98.1 F Pulse Rate 61 Respiratory Rate 15 Blood Pressure 120/61 Pulse Oximetry 97 Oxygen Flow Rate 0 Oxygen Delivery Method Room Air Oxygen Flow Rate 0 Objective Labs 01/08/25 04:53 01/08/25 04:53 Labs: Laboratory Results - last 24 hr 01/07/25 01/07/25 01/08/25 18:10 21:55 01:26 WBC RBC Hgb Hct MCV MCH MCHC RDW Plt Count Neut % (Auto) Lymph % (Auto) [place] % (Auto) Eos % (Auto) Baso % (Auto) Neut # (Auto) Lymph # (Auto) [place] # (Auto) Eos # (Auto) Baso # (Auto) APTT 76 H* D Sodium Potassium Chloride Carbon Dioxide BUN Creatinine Estimated GFR BUN/Creatinine Ratio Glucose Calcium Troponin I 0.856 H* 0.528 H* Triglycerides 38 Cholesterol 167 LDL Cholesterol, Calc 74 HDL Cholesterol 85 H TSH Free T4 01/08/25 01/08/25 04:53 11:30 WBC 3.9 L RBC 3.65 L Hgb 12.0 Hct 34.8 L MCV 95.4 MCH 32.8 MCHC 34.4 RDW 13.7 Plt Count 210 Neut % (Auto) 51.9 Lymph % (Auto) 31.1 [place] % (Auto) 11.2 Eos % (Auto) 4.7 H Baso % (Auto) 1.1 Neut # (Auto) 2000 Lymph # (Auto) 1200 [place] # (Auto) 400 Eos # (Auto) 200 Baso # (Auto) 0 APTT 58 H D 56 H Sodium 136 L Potassium 3.9 Chloride 103 Carbon Dioxide 25 BUN 20 H Creatinine 0.72 Estimated GFR > 60 BUN/Creatinine Ratio 27.8 H Glucose 98 Calcium 9.4 Troponin I Triglycerides Cholesterol LDL Cholesterol, Calc HDL Cholesterol TSH 5.29 H Free T4 1.16 PFSH Medical History Abnormal mammogram of right breast Acquired hypothyroidism Allergies Anemia Ankle pain Anxiety Asymptomatic microscopic hematuria Chicken pox Chronic anemia 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) Essential hypertension (2014) Fatigue Fractures (~2013) Hematuria Hemoptysis Hepatitis C (~2015) Herpes History of hepatitis C virus infection Infertility Intermittent chest pain (05/2021) Leg muscle spasm Measles Mumps KALIN (obstructive sleep apnea) Osteopenia (11/2014) Pulmonary nodule (07/2021) Right ankle pain Shortness of breath Skin rash (~2011) Throat discomfort Thyroid nodule (12/2020) Wears glasses Surgical History Anesthesia Breast cyst History of appendectomy History of breast implant History of knee surgery (~2013) History of surgery History of tonsillectomy Family History Father Cancer History of heart disease Gout Mother Hypertension Brother Prostate cancer Grandfather Cancer Grandmother No problems noted. Social History household members: spouse Smoking Status: Never smoker second hand exposure: No alcohol intake: current substance use type: marijuana Discharge Plan Discharge Plan Patient Disposition: [facility] Other facility: [facility] Under care of provider: David Discharge orders & Medications Medication counseling provided by Pharmacist: Yes Diet/Activity/Treatments Diet: Diet as Tolerated Discharge Data Primary Care Provider: Anne Clark VTE Deep Vein Thrombosis/Pulmonary Embolism Present on Admission: No
--- NOTE | 2025-01-08 16:48 | CM.DANOTE ---
DCP Assessment note pt is a 79yo F admitted with chest pain. PCP Anne Clark Payer [facility] and self pay SKILLS TRAINER reviewed EMR. per chart, pt lives in [place] with spouse. Per perch machine inspector, pt to be transferred out to [facility] for cardiology f/u. BLS transport at 1700. SKILLS TRAINER unable to meet with pt today due to triaging needs. SKILLS TRAINER updated TCM P: transfer to higher level of care. no CM needs at this time. will continue to follow as RICKY Grier Discharge Planning/Care Management CM Discharge Assessment Start: 01/08/25 16:46 Freq: Status: Active Protocol: Document 01/08/25 16:46 SL (Rec: 01/08/25 16:48 SL Desktop) Discharge Planning Assessment Assigned Negative Retoucher RICKY Gonzalez DPOA/Assigned Designee Name gerardo Gamez Contact Information [phone] Advance Directives? No History Provided By Patient,Significant Other Prior Living Arrangements House Household Members spouse Discharge Plan Transfer to Higher Level of Care Transportation Arrangement [facility] Review Status In Process Please Provide Date Initial DC 01/08/25 Assessment Was Performed Next Review Type Continued Stay Review
== END 2025-01-08 17:20 | disposition short-term general hospital (02) | DRG 282 ==
LOC: ED 15:52 → AC 16:35
PROVIDERS: Admitting Provider Internal Medicine; Emergency Provider Emergency Medicine; PCP Family Medicine; Referring Provider Emergency Medicine; Visit Provider Internal Medicine
DX: I21.4 Non-ST elevation (NSTEMI) myocardial infarction (principal); R00.2 Palpitations; I10 Essential (primary) hypertension; E03.9 Hypothyroidism, unspecified; F41.9 Anxiety disorder, unspecified; Z79.890 Hormone replacement therapy; Z86.2 Personal history of diseases of the blood and blood-forming organs and certain disorders involving the immune mechanism
CPT/HCPCS: 36415; 71045; 80048; 80053; 80061; 81003; 81015; 82550; 83690; 83735; 83880; 84439; 84443; 84484; 85025; 85610; 85730; 93005; 93306; 96365; 99284; 99285; J1644

== ENCOUNTER → 2025-02-05 08:18 | Outpatient (CLI) | payer OTHER, SELFPAY ==
[2025-01-07 17:00] VITALS: BMI 20.9
== END ==
LOC: CAR 02-09 13:31
PROVIDERS: PCP Family Medicine; Referring Provider Family Medicine; Visit Provider Family Medicine
DX: I47.10 Supraventricular tachycardia, unspecified (principal); I21.4 Non-ST elevation (NSTEMI) myocardial infarction
CPT/HCPCS: 93246

== ENCOUNTER → 2025-03-01 10:38 | Outpatient (CLI) | payer OTHER, SELFPAY ==
[2025-01-07 17:00] VITALS: BMI 20.9
--- NOTE | 2025-03-01 10:39 | DI.US.S_ITS ---
US axillary only lt: 03/01/2025. BI-RADS: 4A CLINICAL: 79-year old female for left diagnostic breast ultrasound. Tyrer- Cuzick lifetime risk of 2.2%. No personal or first-degree family history of breast cancer. The patient has bilateral implants. PRIOR EXAMS CT Angiogram 01/10/2025. Mammogram(s): 01/04/2025. 11 Other Exams on 12/20/2023, 10/30/2022, 10/29/2021, 09/18/2020, 03/25/2020, 03/01/2020, 12/06/2018, 11/13/2015. ULTRASOUND TECHNIQUE Left Axilla. Real-time garibay scale and color doppler imaging of the area of clinical interest was performed with image documentation. ULTRASOUND FINDINGS Left: Axillary Tail, measuring 2 x 1.5 x 0.9 cm: Cortical thickening (0.8 cm) and increased vascularity. IMPRESSION: Left: Axillary Tail, measuring 2 x 1.5 x 0.9 cm * Low Suspicion for Malignancy. RECOMMENDATIONS Left: Axillary Tail * Ultrasound-guided core biopsy for further evaluation. COMMENTS: At time of biopsy, if this lymph node with mild eccentric cortical thickening resolves or significantly improves, a biopsy will not be performed. Findings and recommendations were discussed with the patient by Dr. Ramey telephonically during today's evaluation. OVERALL ASSESSMENT CATEGORY BI-RADS-4: Suspicious. ELECTRONICALLY SIGNED: Zana Ramey M.D. on 03/01/2025 at 11:53:44 AM PT Interpreting Station ID: [id number]
== END ==
PROVIDERS: PCP Family Medicine; Referring Provider Family Medicine; Visit Provider Family Medicine
DX: R59.0 Localized enlarged lymph nodes (principal); Z98.82 Breast implant status
CPT/HCPCS: 76882

== ENCOUNTER → 2025-04-02 13:25 | Outpatient (CLI) | payer OTHER, SELFPAY ==
[2025-01-07 17:00] VITALS: BMI 20.9
--- NOTE | 2025-04-02 | PATH_ITS ---
[facility] Accession Number: [id number] No. of containers..01 Tissue . 01 Material submitted: . axilla - LEFT AXILLARY NODE . 01 Diagnosis: A: LYMPH NODE, LEFT AXILLARY, CORE BIOPSY: - Benign lymph node, negative for metastatic carcinoma. - See comment and microscopic description. [facility] 04/10/2025 1158 Local . 01 Comment: Concurrent flow cytometry study (specimen ID: [id number]) demonstrated no monoclonal B-cell or aberrant T-cell populations. If there is high suspicion that a lesion was missed, additional sampling may be considered if clinically indicated. . 01 Electronically signed: . Ivette Rangel MD, Pathologist NPI- [id number] . 01 Gross description: . Received in formalin with two identifiers and LT AX node BX, are presumably five pale luke, very delicate cores of luke soft tissue ranging in length from 0.2 to 0.4 cm and less than 0.1 cm in diameter. Submitted entirely in A1. ([id number]) /MRV 04/03/2025 1610 Local . 01 Microscopic: . - Histologic sections demonstrate small, fragmented cores of lymphoid and fibrofatty tissue with small lymphocytes. Immunohistochemical stains were indicated with adequate controls. LOGAN is negative for metastatic carcinoma. Sections are negative for Hodgkin/RS-cells, granulomata, or foreign bodies. - The overall immunomorphologic pattern and flow cytometry findings are consistent with benign lymphoid tissue. Technical Note: The immunohistochemical stains reported were performed at [facility] ([address], [facility] [address]). This test was developed, and the performance characteristics were validated by [facility]. It has not been cleared or approved by the Food and Drug Administration. . 01 Pathologist provided ICD-10: R59.9 . 01 CPT . 805610, E06524 Specimen Comment: A courtesy copy of this report has been sent to [phone] Performed at: [address] [facility], [place], [place] [id number] MD Juan Luis Arellano MD Phone: [phone]
--- NOTE | 2025-04-02 13:27 | DI.US.S_ITS ---
US biopsy LT axilla: 04/02/2025. Rad-Path Correlation: Pending CLINICAL: 79-year old female for left procedure that resulted from diagnostic breast ultrasound on 03/01/2025. Tyrer-Cuzick lifetime risk of 2.2%. No personal or first-degree family history of breast cancer. The patient has bilateral implants. PRIOR EXAMS Mammogram(s): 01/04/2025. Breast Ultrasound(s): 03/01/2025. CONSENT Risks including but not limited to bleeding and infection, benefits and alternatives were discussed with the patient. The patient agreed to the procedure and signed informed consent. Time out procedure was used. ROUTINE Left: Patient positioned in the supine or supine-oblique position, prepped and draped in the usual manner using sterile technique. TECHNIQUE Left: Axilla: Morphology: Oval lymph node measurin.2cm X 2.1cm X 0.7cm. Procedure: Ultrasound-guided core biopsy of a lymph node with celero marker placement. Device: 20-gauge core biopsy instrument. Bard(R) Amrit(R) 14g, with coaxial technique. Approach: Direct. Anesthesia: Local anesthesia obtained using 1%-lidocaine. Skin Entry: Direct. Passes: 6. Specimens: 6. Targeting Confirmation: Real-time Observation and Post-Procedure Imaging. Marker Placement: celero marker placed in target location. Post-procedure imaging: Post-procedure mammogram confirms the marker to be in target location. Rad/Path Correlation: Pending receipt of pathology report. Conclusion: Ultrasound-guided Core biopsy with post-procedure mammogram with marker placement, Left: Axilla PROCEDURE NOTE Temno trochar technique. 4 samples placed on tefla pad in foramalin and 2 placed in RPMI solution. COMPLICATIONS: No complications were encountered while the patient was in our department. DISPOSITION The patient left our department in good condition with aftercare instructions and urged to contact us should any problem arise. The breast was compressed to achieve hemostasis. SUMMARY Left: Axilla: Ultrasound-guided core biopsy of a lymph node with celero marker placement. PATHOLOGY Left: Axilla: Radiologist-Pathologist Correlation: Pending receipt of pathology report. ELECTRONICALLY SIGNED: Kaiser Masterson M.D. on 04/02/2025 at 04:30:47 PM PT Interpreting Station ID: [id number]
== END ==
LOC: US 13:26
PROVIDERS: PCP Family Medicine; Referring Provider Family Medicine; Visit Provider Family Medicine
DX: N63.32 Unspecified lump in axillary tail of the left breast (principal); R59.9 Enlarged lymph nodes, unspecified; Z98.82 Breast implant status
CPT/HCPCS: 38505; 76942

== ENCOUNTER → 2025-06-21 10:52 | Outpatient (CLI) | payer OTHER, SELFPAY ==
[2025-01-07 17:00] VITALS: BMI 20.9
[2025-06-21 11:27] LABS: Hematocrit 33.7 % (36-46); Hemoglobin 11.4 g/dL (12.0-16.0); Mean Corpuscular HGB Conc 33.9 % (30-36); Mean Corpuscular Hemoglobin 31.9 PG (26-34); Mean Corpuscular Volume 94.0 fL (80-100); Platelet Count 207 X10^3/uL (150-400)
[2025-06-21 11:38] LABS: Blood Urea Nitrogen 21 mg/dL (7-17); Calcium 9.3 mg/dL (8.4-10.2); Carbon Dioxide 26 mmol/L (22-32); Chloride 100 mmol/L (98-107); Cholesterol 137 mg/dL (140-199); Estimated Glomerular Filt Rate > 60 mL/min (>60); Glucose 101 mg/dL (70-99); HDL Cholesterol 84 mg/dL (40-60); HEMOLYSIS < 15 (0-50); Potassium 4.4 mmol/L (3.4-5.1); Sodium 136 mmol/L (137-145); Triglycerides 86 mg/dL (35-150)
== END ==
PROVIDERS: PCP Family Medicine; Referring Provider Internal Medicine Cardiovascular Disease; Visit Provider Internal Medicine Cardiovascular Disease
DX: D64.9 Anemia, unspecified (principal); I10 Essential (primary) hypertension; I25.2 Old myocardial infarction
CPT/HCPCS: 36415; 80048; 80061; 85027

== ENCOUNTER → 2025-07-24 12:15 | Outpatient (CLI) | payer OTHER, SELFPAY ==
[2025-01-07 17:00] VITALS: BMI 20.9
[2025-07-24 13:09] LABS: Add Manual Diff / Slide Review NO; Hematocrit 33.9 % (36-46); Hemoglobin 11.5 g/dL (12.0-16.0); Lymphocytes Absolute Auto 1100 /uL (1100-4500); Mean Corpuscular HGB Conc 33.9 % (30-36); Mean Corpuscular Hemoglobin 31.9 PG (26-34); Mean Corpuscular Volume 94.1 fL (80-100); Platelet Count 217 X10^3/uL (150-400)
[2025-07-24 13:39] LABS: Alanine Aminotransferase 17 IU/L (<35); Albumin 4.5 g/dL (3.5-5.0); Albumin Globulin Ratio 1.7 (1.0-2.8); Alkaline Phosphatase 52 U/L (38-126); Blood Urea Nitrogen 22 mg/dL (7-17); Calcium 9.6 mg/dL (8.4-10.2); Carbon Dioxide 27 mmol/L (22-32); Chloride 99 mmol/L (98-107); Estimated Glomerular Filt Rate > 60 mL/min (>60); Globulin 2.6 g/dL (1.7-4.1); Glucose 102 mg/dL (70-99); HEMOLYSIS < 15 (0-50); Potassium 4.2 mmol/L (3.4-5.1); Sodium 137 mmol/L (137-145); Total Protein 7.1 g/dL (6.3-8.2)
[2025-07-24 14:06] LABS: Thyroid Stimulating Hormone 0.154 uIU/mL (0.47-4.68)
== END ==
PROVIDERS: PCP Family Medicine; Referring Provider Family Medicine; Visit Provider Family Medicine
DX: R60.0 Localized edema (principal)
CPT/HCPCS: 36415; 80053; 84443; 85025

== ENCOUNTER → 2025-08-27 10:25 | Outpatient (CLI) | payer OTHER, SELFPAY ==
[2025-01-07 17:00] VITALS: BMI 20.9
--- NOTE | 2025-08-27 10:27 | DI.MG.S_ITS ---
US axillary only lt, MM diagnostic mammo implant LT: 08/27/2025 BI-RADS: 2 CLINICAL: 79-year old female for left diagnostic mammogram and left diagnostic breast ultrasound that is a follow-up to procedure on 04/02/2025. Tyrer-Cuzick lifetime risk of 2.2%. No personal or first-degree family history of breast cancer. The patient reports a palpable abnormality (1 month) in the left breast. The patient has bilateral implants. The patient had a prior left breast biopsy. PRIOR EXAMS 04/02/2025, 03/01/2025, 01/04/2025, 12/20/2023, 10/30/2022, 10/29/2021, 09/18/2020, 03/25/2020, 03/01/2020, 12/06/2018. MAMMOGRAPHY TECHNIQUE: 2D and 3D (tomosynthesis) digital mammographic views obtained, with additional images as needed for full coverage. Current study was also evaluated with a Computer Aided Detection (CAD) system. ULTRASOUND TECHNIQUE: Real-time garibay scale and color doppler imaging of the area of clinical interest was performed with image documentation. Exam is limited to the left axilla. DENSITY Left: C. The breast is heterogeneously dense, which may obscure small masses. MAMMOGRAPHY FINDINGS Left: MLO only, Axilla: A skin marker was placed in the area of concern, and no mammographic abnormalities are identified or to account for concern by the patient of a palpable lump. No suspicious mass, asymmetry, microcalcification, or other abnormality seen. Left: There are no suspicious masses, calcifications, or other findings in the breast. ULTRASOUND FINDINGS Left: Axilla, measuring 2.3 x 1 x 2 cm: Underlying surface marker and correlating with palpable lump and also with area of biopsy there is a lymph node with concentric cortical thickening. This finding appears stable allowing for differences in technique. Prior biopsy demonstrated benign pathology. IMPRESSION: Left * No evidence of malignancy with benign findings. RECOMMENDATIONS Left * The patient's palpable abnormality in the axilla corresponds to a biopsy-proven benign axillary lymph node. Clinical follow-up is recommended, and further management of palpable abnormalities or other focal signs or symptoms should be based on the results of clinical evaluation. If a concerning symptom persists or progresses, further clinical evaluation should be considered. Bilateral * Annual screening mammography (due January 2026). COMMENTS: Findings and recommendations were conveyed to the patient during today's evaluation. OVERALL ASSESSMENT CATEGORY BI-RADS-2: Benign. The [employer] recommends annual screening mammography beginning at age 40 for women with average risk of breast cancer. ELECTRONICALLY SIGNED: Nica Cao M.D. on 08/27/2025 at 01:10:42 PM PT Interpreting Station ID: [id number]
== END ==
LOC: MAMMO 10:26
PROVIDERS: PCP Family Medicine; Referring Provider Family Medicine; Visit Provider Family Medicine
DX: R59.9 Enlarged lymph nodes, unspecified (principal); R92.332 Mammographic heterogeneous density, left breast; Z98.82 Breast implant status
CPT/HCPCS: 76882; 77065; G0279